=== PATIENT | female | born 1975 | race Caucasian/White ===

== ENCOUNTER 2017-07-24 23:25 | Emergency (ER) | payer OTHER ==
[~2017-07-24] VITALS: Ht 152.4 cm; Wt 71.9 kg
[~2017-07-24 23:25] MED LIST: NXM/40 PO; PSEU30TA20 PO
[2017-07-24 23:34] VITALS: TEMP 36.9; Ht 152.4 cm; Wt 71.9 kg
[2017-07-25] MEDS ORDERED: SODIUM CHLORIDE 0.9% 1000ML 1,000 ML IV STA (00:06)
[2017-07-25] MEDS ORDERED: ONDANSETRON INJ 2 MG/ML 2 ML VIAL IV STA (00:06)
[2017-07-25 00:36] LABS: BASO % 0.4 %; BASO ABS # 0.04 K/uL (0-0.2); COMPLETE YES; EOS % 3.7 %; HEMATOCRIT 41.6 % (37-47); IG% 0.3 %; LYMPH % 42.9 %; LYMPH ABS # 4.77 K/uL (1.2-3.4); MEAN CELL VOLUME 88.1 fL (80-100); MEAN CORPUSCULAR HEMOGLOBIN 31.6 pg (25-34); MEAN CORPUSCULAR HGB CONC 35.8 g/dl (32-36); MEAN PLATELET VOLUME 11.2 fL (7.4-10.4); MONO % 5.9 %; NEUT % 46.8 %; PLATELET COUNT 308 K/uL (130-400); RED BLOOD COUNT 4.72 M/uL (4.2-5.4); WHITE BLOOD COUNT 11.12 K/uL (4.8-10.8)
[2017-07-25 00:39] LABS: URINE APPEARANCE CLEAR (CLEAR); URINE BILIRUBIN NEG (NEG); URINE COLOR YELLOW; URINE NITRITE NEG (NEG); URINE PH 5.5 (4.5-7.5); UROBILINOGEN NEG (NEG); ZZUR CULT IF INDIC CLEAN CATCH NO
[2017-07-25 00:42] LABS: MANUAL MICROSCOPIC REQUIRED? NO; REVIEW REQ? NO
[2017-07-25 00:53] LABS: ALT/SGPT 20 U/L (12-78); AST/SGOT 10 U/L (15-37); BLOOD UREA NITROGEN 14 mg/dl (7-18); BUN/CREATININE RATIO 16.7 (10-20); CALCIUM 8.6 mg/dl (8.5-10.1); CARBON DIOXIDE 25 mmol/L (21-32); CHLORIDE 106 mmol/L (98-107); CREATININE 0.81 mg/dl (0.60-1.20); GLUCOSE 83 mg/dl (70-99); MAGNESIUM 2.4 mg/dl (1.8-2.4); POTASSIUM 3.7 mmol/L (3.5-5.1); SODIUM 138 mmol/L (136-145)
[2017-07-25 00:56] LABS: ALKALINE PHOSPHATASE 77 U/L (45-117)
[2017-07-25] MEDS ORDERED: CLR10 PO (01:57)
[2017-07-25] MEDS ORDERED: FAMO20TA9 PO (02:26)
--- NOTE | 2017-07-25 02:31 | EMERGENCY ROOM VISIT NOTE ---
History Report prepared by Jomar: Thai Aparicio Under the Supervision of: Dr. Charlene Mathew M.D. First contact with patient: 23:54 Chief Complaint: NAUSEA Stated Complaint: NAUSEA,LIGHTHEADED,SHAKES Nursing Triage Summary: nausea and light headed since yesterday. denies pain or vomiting History of Present Illness The patient is a 42 year old female who presents to the Emergency Room with complaints of persistent nausea beginning yesterday. She also complains of lightheadedness which began today. The patient denies any chest pain, abdominal pain, abnormal cough, SOB, vomiting, or diarrhea. She denies any chance of . She notes that she took a trip to the beach a few weeks ago. The patient denies any recent increased alcohol consumption. She has a history of a cholecystectomy. She notes that she smokes about a pack a day. Source of History: patient Onset: Yesterday Quality: other (nausea) Timing: other (persistent) Associated Symptoms: No cough, No chest pain, No SOB, No vomiting, No abdominal pain, No diarrhea Note: Additional symptoms: lightheadedness. Review of Systems See HPI for pertinent positives & negatives. A total of 10 systems reviewed and were otherwise negative. Past Medical & Surgical Medical Problems: (1) Frequent UTI Surgical Problems: (1) No history of previous surgery Family History No pertinent family history stated. Social History Smoking Status: Current Every Day Smoker Alcohol Use: none Marital Status: Housing Status: lives with family Occupation Status: employed Current/Historical Medications Scheduled Esomeprazole Magnesium (Nexium), 40 MG PO DAILY Loratadine (Claritin), 10 MG PO DAILY Scheduled PRN Famotidine (Pepcid), 20 MG PO BID PRN for gastritis Allergies Coded Allergies: Cephalosporins (Verified Allergy, Unknown, 07/24/17) Penicillins (Verified Allergy, Unknown, 07/24/17) Sulfa Antibiotics (Verified Allergy, Unknown, hives, 07/24/17) Physical Exam Vital Signs Date Time Temp Pulse Resp B/P (MAP) Pulse Ox O2 Delivery O2 Flow Rate FiO2 07/25/17 02:32 84 16 115/81 97 07/25/17 01:51 64 20 110/72 98 Room Air 07/25/17 00:31 74 20 121/96 98 Room Air 07/25/17 00:20 83 123/87 75 121/95 88 121/96 07/24/17 23:34 36.9 85 20 129/83 100 Room Air Physical Exam Vital signs reviewed. General: Well-appearing female, in no significant distress. HEENT: No scleral icterus, PERRLA, neck supple. Atraumatic. Cardiovascular: Regular rate and rhythm, no extra sounds. Pulmonary: Clear to auscultation bilaterally, normal work of breathing. Abdomen: Soft, nontender, nondistended, positive bowel sounds. Musculoskeletal: Atraumatic, no peripheral edema. Neurologic: Patient awake alert and oriented x 3, full strength in all 4 extremities. Cranial nerves 2 through 12 grossly intact. Skin: Warm, dry, no rash Medical Decision & Procedures ER Provider Diagnostic Interpretation: Two Chest X-ray interpreted by me: No focal lung consolidation. No failure. No pneumothorax. Laboratory Results 07/25/17 00:15 Red Blood Count 4.72, Mean Corpuscular Volume 88.1, Mean Corpuscular Hemoglobin 31.6, Mean Corpuscular Hemoglobin Concent 35.8, Mean Platelet Volume 11.2, Neutrophils (%) (Auto) 46.8, Lymphocytes (%) (Auto) 42.9, Monocytes (%) (Auto) 5.9, Eosinophils (%) (Auto) 3.7, Basophils (%) (Auto) 0.4, Neutrophils # (Auto) 5.21, Lymphocytes # (Auto) 4.77, Monocytes # (Auto) 0.66, Eosinophils # (Auto) 0.41, Basophils # (Auto) 0.04 07/25/17 00:15 Test 07/25/17 00:15 White Blood Count 11.12 K/uL (4.8-10.8) Red Blood Count 4.72 M/uL (4.2-5.4) Hemoglobin 14.9 g/dL (12.0-16.0) Hematocrit 41.6 % (37-47) Mean Corpuscular Volume 88.1 fL (80-100) Mean Corpuscular Hemoglobin 31.6 pg (25-34) Mean Corpuscular Hemoglobin Concent 35.8 g/dl (32-36) Platelet Count 308 K/uL (130-400) Mean Platelet Volume 11.2 fL (7.4-10.4) Neutrophils (%) (Auto) 46.8 % Lymphocytes (%) (Auto) 42.9 % Monocytes (%) (Auto) 5.9 % Eosinophils (%) (Auto) 3.7 % Basophils (%) (Auto) 0.4 % Neutrophils # (Auto) 5.21 K/uL (1.4-6.5) Lymphocytes # (Auto) 4.77 K/uL (1.2-3.4) Monocytes # (Auto) 0.66 K/uL (0.11-0.59) Eosinophils # (Auto) 0.41 K/uL (0-0.5) Basophils # (Auto) 0.04 K/uL (0-0.2) RDW Standard Deviation 41.6 fL (36.4-46.3) RDW Coefficient of Variation 12.9 % (11.5-14.5) Immature Granulocyte % (Auto) 0.3 % Immature Granulocyte # (Auto) 0.03 K/uL (0.00-0.02) Urine Color YELLOW Urine Appearance CLEAR (CLEAR) Urine pH 5.5 (4.5-7.5) Urine Specific Eagle 1.020 (1.000-1.030) Urine Protein NEG (NEG) Urine Glucose (UA) NEG (NEG) Urine Ketones NEG (NEG) Urine Occult Blood NEG (NEG) Urine Nitrite NEG (NEG) Urine Bilirubin NEG (NEG) Urine Urobilinogen NEG (NEG) Urine Leukocyte Esterase NEG (NEG) Urine Test NEG (NEG) Anion Gap 7.0 mmol/L (3-11) Est Creatinine Clear Calc Drug Dose 81.7 ml/min Estimated GFR () 105.3 Estimated GFR (Non- 90.8 BUN/Creatinine Ratio 16.7 (10-20) Calcium Level 8.6 mg/dl (8.5-10.1) Magnesium Level 2.4 mg/dl (1.8-2.4) Total Bilirubin 0.5 mg/dl (0.2-1) Direct Bilirubin < 0.1 mg/dl (0-0.2) Aspartate Amino Transf (AST/SGOT) 10 U/L (15-37) Alanine Aminotransferase (ALT/SGPT) 20 U/L (12-78) Alkaline Phosphatase 77 U/L (45-117) Total Protein 6.8 gm/dl (6.4-8.2) Albumin 3.5 gm/dl (3.4-5.0) Lipase 201 U/L (73-393) Laboratory results per my review. Medications Administered Medications (Trade) Dose Ordered Sig/Inder Route Start Time Stop Time Status Last Admin Dose Admin Sodium Chloride 1,000 ml @ 999 mls/hr Q1H1M STAT IV 07/25/17 00:06 07/25/17 01:06 DC 07/25/17 00:25 999 MLS/HR Ondansetron HCl (Zofran Inj) 4 mg NOW STAT IV 07/25/17 00:06 07/25/17 00:09 DC 07/25/17 00:31 4 MG ED Course 1204: Past medical records reviewed. The patient was evaluated in room C5. A complete history and physical examination was performed. 0006: Ordered Zofran Inj 4 mg IV, Sodium Chloride 1000 ml @ 999 mls/hr IV. 022: Upon reevaluation, the patient appeared to have improvement of her symptoms. I discussed findings with her. She verbalized agreement of the treatment plan. The patient was discharged home. Medical Decision Differential diagnosis: Etiologies such as benign positional vertigo, dehydration, hypovolemia, anemia, tumor, infection, hypoglycemia, electrolyte abnormalities, cardiac sources, intracerebral event, toxicologic, neurologic, as well as others were entertained. This patient was evaluated and appeared to be in no significant distress. IV access was obtained and laboratory work was drawn. 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 She was hydrated with normal saline solution. Chest x-ray was obtained due to the patient's smoking history and chronic cough. This reveals no focal infiltrate. Laboratory work reveals a negative UA, negative test. She was feeling improved after IV hydration and Zofran. The patient was advised to start Pepcid 20 mg twice daily as needed. She will follow-up with her physician this week for reevaluation return to the ER for worsening of symptoms or any medical concerns. Impression Primary Impression: Nausea Scribe Attestation The scribe's documentation has been prepared under my direction and personally reviewed by me in its entirety. I confirm that the note above accurately reflects all work, treatment, procedures, and medical decision making performed by me. Departure Information Dispostion Home / Self-Care Prescriptions Famotidine (PEPCID) 20 Mg Tab 20 MG PO BID Y for gastritis, #60 TAB Prov: Charlene Mathew M.D. 07/25/17 Referrals Brittany Mosquera M.D. (PCP) Forms HOME CARE DOCUMENTATION FORM, IMPORTANT VISIT INFORMATION Patient Instructions My [facility] Additional Instructions Diagnosis: Nausea Pepcid 20 mg twice daily as needed. You may continue your Nexium. Drink plenty of clear fluids. Minimize alcohol, coffee, soda. Maintain a bland diet. Follow-up with your physician this week for reevaluation. Return to the ER for worsening of symptoms or any medical concerns.
[2017-07-25 02:32] VITALS: BP 115/81; PULSE 84; O2SAT 97
--- NOTE | 2017-07-25 07:04 | DIAGNOSTIC IMAGING REPORT ---
CHEST 2 VIEWS ROUTINE CLINICAL HISTORY: 42 years-old Female presenting with cough, lightheaded. TECHNIQUE: PA and lateral views of the chest were obtained. COMPARISON: None. FINDINGS: Cardiomediastinal silhouette normal. Lungs and pleural spaces clear. Osseous structures normal. Cholecystectomy clips noted. IMPRESSION: 1. No acute cardiopulmonary disease. Electronically signed by: Slava Cortez M.D. 07/25/2017 7:03 AM Dictated Date/Time: 07/25/2017 7:02 AM
== END 2017-07-25 02:31 | disposition home or self-care (01) ==
LOC: C.EDB 23:26 → C.EDC 07-25 02:31
DX: R11.0 Nausea (principal); R42 Dizziness and giddiness; F17.200 Nicotine dependence, unspecified, uncomplicated; Z87.440 Personal history of urinary (tract) infections; Z88.0 Allergy status to penicillin; Z88.2 Allergy status to sulfonamides; Z88.8 Allergy status to other drugs, medicaments and biological substances

== ENCOUNTER 2018-02-04 23:53 | Emergency (ER) | payer OTHER ==
[~2018-02-04] VITALS: Ht 152.4 cm; Wt 74.7 kg
[~2018-02-04 23:53] MED LIST changes: +CLR10 PO; -PSEU30TA20 PO
[2018-02-04 23:57] VITALS: TEMP 36.5; Ht 152.4 cm; Wt 74.7 kg
[2018-02-05] MEDS ORDERED: ONDA4TAB10 SL (00:53)
[2018-02-05] MEDS ORDERED: CLIN300C2 PO (00:53)
[2018-02-05] MEDS ORDERED: OXYC1TAB3 PO (00:53)
--- NOTE | 2018-02-05 00:54 | EMERGENCY ROOM VISIT NOTE ---
History First contact with patient: 00:15 Chief Complaint: DENTAL PAIN Stated Complaint: ABCESS TOOTH,VOMITING Nursing Triage Summary: pt at [facility] morning for abcess tooth and palcedon antibiotic and 2 pain meds, pt now c/o pain worse and she is vomiting now History of Present Illness The patient is a 42 year old female who presents to the Emergency Room with complaints of dental pain. The patient states that she has had pain in 1 of her left upper teeth for the past 2 days. She has had issues with this tooth off and on for the past several weeks and was seen by a dentist last week for this. She has an appointment to have the tooth extracted. She rates the discomfort at 10/10 and states it is a sharp, throbbing pain. She was seen at the [place] emergency department this morning and was placed on clindamycin, tramadol and ibuprofen. She states that after taking these medications, she had an episode of vomiting. She states that nothing has helped the pain. It is worse with moving the mouth or eating. She denies facial swelling, fevers, difficulty breathing or difficulty swallowing. Review of Systems A complete 10 point review of systems was reviewed with the patient with pertinent positives and negatives as per history of present illness. All else were negative. Past Medical/Surgical History Medical Problems: (1) Asthma (2) Frequent UTI (3) URI, acute (4) Urinary tract infection Surgical Problems: (1) History of cholecystectomy (2) No history of previous surgery Social History Smoking Status: Current Every Day Smoker Alcohol Use: none Marital Status: Housing Status: lives with family Occupation Status: employed Current/Historical Medications Scheduled Clindamycin Hcl (Cleocin), 300 MG PO QID Esomeprazole Magnesium (Nexium), 40 MG PO DAILY Ondasetron Odt (Zofran Odt), 4 MG SL Q6H Scheduled PRN Oxycodone Ir (Roxicodone Ir), 1-2 TAB PO Q4H PRN for Pain Physical Exam Vital Signs Date Time Temp Pulse Resp B/P (MAP) Pulse Ox O2 Delivery O2 Flow Rate FiO2 02/05/18 01:00 108 16 136/63 95 02/04/18 23:57 36.5 81 18 151/107 99 Room Air Physical Exam VITALS: Vitals are noted on the nurse's note and reviewed by myself. Vital signs stable. GENERAL: This is a 42-year-old female, in no acute distress, nondiaphoretic, well-developed well-nourished. SKIN: The skin was without rashes. EARS: External auditory canals clear, tympanic membranes pearly silverio without erythema or effusion bilaterally. EYES: Pupils equal round and reactive to light and accommodation. MOUTH: Mucous membranes moist. There is an impacted, broken off left upper tooth. The surrounding gums are erythematous, mildly edematous and friable. There is no facial swelling. There is no drainage or sign of an obvious abscess. NECK: Supple without nuchal rigidity. No lymphadenopathy. HEART: Regular rate and rhythm without murmurs gallops or rubs. LUNGS: Clear to auscultation bilaterally without wheezes, rales or rhonchi. NEURO: Patient was alert and oriented to person place and time. Medical Decision & Procedures Medications Administered Medications (Trade) Dose Ordered Sig/Inder Route Start Time Stop Time Status Last Admin Dose Admin Oxycodone HCl (Roxicodone Immediate Rel 5MG Home Pack) 1 homepack UD ONCE PO 02/05/18 01:00 02/05/18 01:01 DC 02/05/18 00:54 1 HOMEPACK Ondansetron HCl (ZOFRAN ODT 4MG Home Pack) 1 homepack UD ONCE PO 02/05/18 01:00 02/05/18 01:01 DC 02/05/18 00:54 1 HOMEPACK Medical Decision Differential diagnosis includes dental infection, dental abscess, Malcolm's angina, among others. The patient was evaluated as above. She presents complaining of dental pain. She was at [place] and was prescribed antibiotics as well as pain medication. She has had an episode of vomiting since then. The patient was given a home pack and prescription for oxycodone as well as Zofran. She is taking clindamycin, however this was prescribed 150 mg 4 times daily. I recommended taking 300 mg 4 times daily and gave her a prescription for this. She has an appointment set up with her dentist for extraction. There is no facial swelling or fever today. She was advised to return here for any signs of worsening infection. She verbalized understanding of my assessment and treatment plan and was discharged home in good condition. [place] Drug Monitoring Program Search Results: patient reviewed within database, no issues identified Medication Reconcilliation Current Medication List: was personally reviewed by me Blood Pressure Screening Patient's blood pressure: Elevated blood pressure Blood pressure disposition: Elevated BP felt to be situational Impression Primary Impression: Dental infection Departure Information Dispostion Home / Self-Care Condition GOOD Prescriptions Clindamycin Hcl (CLEOCIN) 300 Mg Cap 300 MG PO QID for 10 Days, #40 CAP Prov: Reshma Webber PA-C 02/05/18 Ondasetron Odt (ZOFRAN ODT) 4 Mg Tab 4 MG SL Q6H for Nausea, #15 TAB Prov: Reshma Webber PA-C 02/05/18 Oxycodone Ir (Roxicodone Ir) 5 Mg Tab 1-2 TAB PO Q4H Y for Pain, #15 TAB For Initial Treatment Prov: Reshma Webber PA-C 02/05/18 Referrals No Doctor, Assigned (PCP) Patient Instructions My [facility] Additional Instructions You have been treated in the Emergency Department for Dental Pain. You have been prescribed Oxy IR to be used for pain control. This is a narcotic medication. You cannot drive or consume alcohol while on this medicine. This medicine should only be used for pain that cannot be controlled with over-the- counter pain medicines. You have been prescribed Zofran to be used for any nausea or vomiting. Take as prescribed. You were prescribed Clindamycin to be taken four times daily as prescribed. This is an antibiotic. All antibiotics have the potential to cause diarrhea. Stop this medication and contact a medical provider if you were to develop any significant adverse side effects including: wheezing, shortness of breath, passing out, vomiting, or a diffuse rash. Always take antibiotics as directed and COMPLETE the ENTIRE course regardless of the improvement of your symptoms. For pain control, you can use the following [id number] medicines (if >12 yo): - Regular strength (325mg/tab) Tylenol (acetaminophen) 2 tabs every 4-6 hours as needed. Do not exceed 12 tablets in a 24 hour period. Avoid taking more than 4 grams (4000 mg) of Tylenol per day. This includes any other sources of acetaminophen you may take on a regular basis. - Regular strength (200 mg/tab) Advil (ibuprofen) 1-2 tabs every 4-6 hours as needed. Do not exceed a dose of 3200 mg per day. Refrain from smoking cigarettes or using chewing tobacco until you have been evaluated by your dentist. Keeping beverages lukewarm and consuming soft foods can decrease your pain. Warm compresses over the affected area may offer some relief. You MUST seek evaluation of your dental pain by a dentist following your visit to the Emergency Department. The Emergency Department is not capable of treating dental issues long-term. You should call your dentist as soon as possible to make an appointment for evaluation of your dental pain. Return to the emergency department if you develop the following symptoms despite treatment course outlined above: fever, intractable pain, increased redness, swelling, or purulent discharge.
[2018-02-05 01:00] VITALS: BP 136/63; PULSE 108; O2SAT 95
[2018-02-05] MEDS ORDERED: OXYCODONE IR HOME PACK PO ONE (01:00)
[2018-02-05] MEDS ORDERED: ONDANSETRON HOME PACK 4MG OD TAB PO ONE (01:00)
[2018-02-05] MEDS ORDERED: ONDA4TAB46 PO (07:36)
== END 2018-02-05 01:00 | disposition home or self-care (01) ==
LOC: C.EDB 23:54
DX: K04.7 Periapical abscess without sinus (principal); J45.909 Unspecified asthma, uncomplicated; F17.200 Nicotine dependence, unspecified, uncomplicated

== ENCOUNTER 2018-02-05 05:58 | Emergency (ER) | payer OTHER ==
[~2018-02-05] VITALS: Ht 152.4 cm; Wt 74.3 kg
[~2018-02-05 05:58] MED LIST changes: +CLIN300C2 PO; +ONDA4TAB10 SL; +OXYC1TAB3 PO
[2018-02-05 06:02] VITALS: Ht 152.4 cm; Wt 74.3 kg
[2018-02-05] MEDS ORDERED: TRAMADOL HCL 50 MG TAB PO STA (06:53)
[2018-02-05] MEDS ORDERED: GI COCKTAIL PO STA (06:53)
[2018-02-05] MEDS ORDERED: LIDOCAINE/EPINEPHRINE 1% 20 ML VIAL INFIL ONE (07:00)
[2018-02-05] MEDS ORDERED: FAMOTIDINE 20 MG TAB PO ONE (07:00)
[2018-02-05] MEDS ORDERED: ALUMINUM/MAGNESIUM SUSP 30 ML UDC ONE (07:01)
[2018-02-05] MEDS ORDERED: LIDOCAINE HCL 2% VISC SOLN 20 ML UDC ONE (07:02)
--- NOTE | 2018-02-05 07:23 | EMERGENCY ROOM VISIT NOTE ---
History Report prepared by Jomar: Thai Aparicio Under the Supervision of: Dr. Jonnie Mckeon M.D. First contact with patient: 06:44 Chief Complaint: DENTAL PAIN Stated Complaint: ABCESS,SWELLING Nursing Triage Summary: C/o dental pain left upper tooth. Appointment with dentist on 02/15 for extraction. Pt seen here last night, sent home with new prescription for antibiotics/oxycodone/zofran. Pt states antibiotics didn't help. Pt took two of the pain meds and two of the nausea pills tonight with no relief. History of Present Illness The patient is a 42 year old white female with a past medical history of asthma , UTI, hernia repair, s/p cholecystectomy who presents to the ED with a cc of constant left upper dental beginning two days ago. Positive dizziness and nausea. Describes pain as "sharp". Patient denies modifying factors. Patient was seen in the ED last night for similar symptoms and was discharged on antibiotics, oxycodone and Zofran. She has taken two doses of her oxycodone. Patient is scheduled to have her tooth pulled by her dentist in 10 days. LNMP was one month ago. Patient is a smoker. No recent travel. Source of History: patient Onset: Two days ago Position: teeth (left upper) Quality: sharp Timing: constant Modifying Factors (Worsening): other (none) Modifying Factors (Relieving): other (none) Associated Symptoms: + nausea Note: Additional symptoms: dizziness. Review of Systems See HPI for pertinent positives and negatives. A total of ten systems were reviewed and were otherwise negative. Past Medical & Surgical Medical Problems: (1) Asthma (2) Frequent UTI (3) URI, acute (4) Urinary tract infection Surgical Problems: (1) History of cholecystectomy (2) No history of previous surgery Family History No pertinent family history stated. Social History Smoking Status: Current Every Day Smoker Alcohol Use: none Marital Status: Housing Status: lives with family Occupation Status: employed Current/Historical Medications Scheduled Clindamycin Hcl (Cleocin), 300 MG PO QID Esomeprazole Magnesium (Nexium), 40 MG PO DAILY Ondasetron Odt (Zofran Odt), 4 MG SL Q6H Scheduled PRN Ondansetron Hcl (Zofran), 4 MG PO Q8H PRN for Nausea Oxycodone Ir (Roxicodone Ir), 1-2 TAB PO Q4H PRN for Pain Allergies Coded Allergies: Cephalosporins (Verified Allergy, Unknown, 02/05/18) Penicillins (Verified Allergy, Unknown, 02/05/18) Sulfa Antibiotics (Verified Allergy, Unknown, hives, 02/05/18) Physical Exam Vital Signs Date Time Temp Pulse Resp B/P (MAP) Pulse Ox O2 Delivery O2 Flow Rate FiO2 02/05/18 06:02 37.1 125 20 162/108 97 Room Air Physical Exam GENERAL: Awake, alert, well-appearing, NAD HENT: Normocephalic, atraumatic. Broken 11th tooth. No signs of odontogenic swelling. False lower teeth. False mandibular teeth. EYES: Normal conjunctiva. Sclera non-icteric. NECK: Supple. No nuchal rigidity. FROM. RESPIRATORY: CTAB, no rhonchi, wheezing, crackles CARDIAC: RRR, no MRG ABDOMEN: Soft, NTND, BS+ MSK: No chest wall TTP, no LE edema NEURO: GCS 15, CN 2-12 intact, moves all 4s on command SKIN: No rash or jaundice noted. Medical Decision & Procedures Laboratory Results Test 02/05/18 06:55 Urine Test NEG (NEG) Laboratory results reviewed by me Medications Administered Medications (Trade) Dose Ordered Sig/Inder Route Start Time Stop Time Status Last Admin Dose Admin Tramadol HCl (Ultram Tab) 50 mg NOW STAT PO 02/05/18 06:53 02/05/18 06:56 DC 02/05/18 07:13 50 MG Famotidine (Pepcid Tab) 20 mg NOW ONCE PO 02/05/18 07:00 02/05/18 07:01 DC 02/05/18 07:13 20 MG Al Hydroxide/Mg Hydroxide (Maalox Susp) 30 ml STK-MED ONCE .ROUTE 02/05/18 07:01 02/05/18 07:02 DC 02/05/18 07:12 30 ML Lidocaine HCl (Viscous Lidocaine 2% Soln) 20 ml STK-MED ONCE .ROUTE 02/05/18 07:02 02/05/18 07:03 DC 02/05/18 07:12 20 ML Procedure Inferior Alveolar Block Indication: dental pain Verbal consent obtained. Risks and benefits were explained with the usual customary discussion. A time out was taken. Using sterile technique, 5 mL's of Lidocaine with Epinephrine was injected into the area where the inferior alveolar nerve projects from the face using a 22 gauge needle. No complications. The patient tolerated the procedure well. ED Course 0647: The patient was evaluated in room B2. A complete history and physical exam was performed. 0710: I conducted the inferior alveolar block. See the procedure note for details. 0735: I reevaluated the patient. Discussed results and discharge instructions: she verbalized understanding and agreement. The patient is ready for discharge. Medical Decision The patient is a 42 year old white female with a past medical history of asthma , UTI, hernia repair, s/p cholecystectomy who presents to the ED with a cc of constant left upper dental beginning two days ago. Triage Nursing notes reviewed. The patient's presentation and history were concerning for dental caries, , UTI, gastritis, medication side effect, and dental abscess. Prior records were reviewed. The patient was seen and evaluated last evening for similar problems. Patient did have dental pain. Patient did receive pending pain medication, antiemetics. Patient was seen and evaluated at the bedside. Patient was complaining of some left maxillary jaw pain. The patient did have a broken left upper #11 tooth. The patient was complaining of an abscess. There was no signs of swelling or concern for odontogenic infection that could be relieved with an incision and drainage procedure. The patient did complain of some mild nausea. The patient was recently started on the antibiotics and had taken some narcotic pain medication. Patient denies any chest pain, shortness of breath, abdominal pain. The patient did have an inferior alveolar block was performed. Adequate analgesia was achieved. Patient was told that she needs to take Motrin and Tylenol around the clock. Patient was also told she may try some Orajel or ice. Patient does have a follow-up dental appointment. Patient did have urine test that was negative. Patient was deemed suitable for outpatient follow-up and treatment at this time. Patient was given strict follow-up, discharge, and return precautions. All questions were answered. Patient was deemed suitable for outpatient follow-up at this time. Patient agreed with the plan of care and was safely discharged home. Medication Reconcilliation Current Medication List: was personally reviewed by me Blood Pressure Screening Patient's blood pressure: Elevated blood pressure Blood pressure disposition: Referred to PCP Impression Primary Impression: Dental caries Additional Impression: Pain, dental Scribe Attestation The scribe's documentation has been prepared under my direction and personally reviewed by me in its entirety. I confirm that the note above accurately reflects all work, treatment, procedures, and medical decision making performed by me. Departure Information Dispostion Home / Self-Care Prescriptions Ondansetron Hcl (ZOFRAN) 4 Mg Tab 4 MG PO Q8H Y for Nausea, #12 TAB Prov: Jonnie Mckeon M.D. 02/05/18 Referrals No Doctor, Assigned (PCP) Patient Instructions ED [facility], [facility] Additional Instructions Please return to the emergency department if you have worsening or recurrent symptoms not amenable to at-home treatment. Please call for a follow-up appointment with her primary care physician. Please take your medications as prescribed. If you have other concerns and/or complaints please feel free to also call your primary care physician's office or return the ED for further evaluation, management, and treatment. You received narcotic or benzodiazepene medication while in the emergency room today. This is an addictive medication that may cause drowziness as well as constipation. Do not drive, operate heavy machinery, or drink alcohol under the influence of this medication. You may take 600 mg Ibuprofen every 6 hours as needed for pain with food for no more than 2 consecutive days. You may take tylenol 1000 mg every 6 hours as needed for pain. You may take motrin and tylenol separately or at the same time. Take your medications as prescribed. If taking an antibiotic consider taking a probiotic and/or eating yogurt, but at the least, please take with food as it can cause upset stomach. You have been examined and treated today on an emergency basis only. This is not a substitute for, or an effort to provide, complete comprehensive medical care. It is impossible to recognize and treat all injuries or illnesses in a single emergency department visit. It is therefore important that you follow up closely with [facility], your PCP, and/or your specialist(s). Call as soon as possible for an appointment. Thank you for your time and consideration. I look forward to speaking with you again soon. Please don't hesitate to call us if you have any questions. Problem Qualifiers
[2018-02-05] MEDS ORDERED: ONDA4TAB46 PO (07:36)
[2018-02-05 07:45] VITALS: BP 144/79; PULSE 87; TEMP 36.9; O2SAT 98
== END 2018-02-05 07:44 | disposition home or self-care (01) ==
LOC: C.EDB 05:58
DX: K02.9 Dental caries, unspecified (principal); K08.89 Other specified disorders of teeth and supporting structures; S02.5XXA Fracture of tooth (traumatic), initial encounter for closed fracture; X58.XXXA Exposure to other specified factors, initial encounter; F17.200 Nicotine dependence, unspecified, uncomplicated; J45.909 Unspecified asthma, uncomplicated; Z87.19 Personal history of other diseases of the digestive system; Z88.1 Allergy status to other antibiotic agents; Z88.0 Allergy status to penicillin; Z88.2 Allergy status to sulfonamides

== ENCOUNTER 2018-02-05 21:43 | Inpatient (IN) | payer OTHER ==
[~2018-02-05] VITALS: Ht 152.4 cm; Wt 75.1 kg
[~2018-02-05 21:43] MED LIST changes: +ONDA4TAB46 PO
[2018-02-05] MEDS ORDERED: MoRPHine SULFATE 10 MG/ML CARP/VIAL IV STA (21:56)
[2018-02-05] MEDS ORDERED: KETOROLAC TROMETHAMINE 15 MG/ML VIAL IV STA (21:56)
[2018-02-05] MEDS ORDERED: ONDANSETRON INJ 2 MG/ML 2 ML VIAL IV STA (21:56)
[2018-02-05] MEDS ORDERED: CLINDAMYCIN IV 600 MG in DEXTROSE 5% 50ML 50 ML IV ONE (22:00)
[2018-02-05] MEDS ORDERED: OPTIRAY 320 IV PRN (22:15)
[2018-02-05 22:33] LABS: BASO % 0.1 %; BASO ABS # 0.02 K/uL (0-0.2); EOS % 0.1 %; EOS ABS # 0.02 K/uL (0-0.5); HEMATOCRIT 41.7 % (37-47); HEMOGLOBIN 14.8 g/dL (12.0-16.0); IG# 0.06 K/uL (0.00-0.02); LYMPH % 6.4 %; LYMPH ABS # 1.04 K/uL (1.2-3.4); MEAN CELL VOLUME 87.6 fL (80-100); MEAN CORPUSCULAR HEMOGLOBIN 31.1 pg (25-34); MEAN CORPUSCULAR HGB CONC 35.5 g/dl (32-36); MONO % 4.8 %; MONO ABS # 0.77 K/uL (0.11-0.59); NEUT % 88.2 %; PLATELET COUNT 297 K/uL (130-400); RED CELL DISTRIBUTION WIDTH CV 13.4 % (11.5-14.5); RED CELL DISTRIBUTION WIDTH SD 43.4 fL (36.4-46.3); WHITE BLOOD COUNT 16.21 K/uL (4.8-10.8)
[2018-02-05 22:49] LABS: CALCIUM 8.4 mg/dl (8.5-10.1); CREATININE 0.86 mg/dl (0.60-1.20); POTASSIUM 3.1 mmol/L (3.5-5.1)
[2018-02-05] MEDS ORDERED: SODIUM CHLORIDE 0.9% 1000ML 1,000 ML IV STA (23:26)
[2018-02-05] MEDS ORDERED: BENZOCAIN/TETRACA/BUTAM SPRAY 200 APPLN/20 GM SPRY ONE (23:37)
[2018-02-05] MEDS ORDERED: CANNULA ONE (23:37)
[2018-02-06] MEDS ORDERED: OXYCODONE HCL IR 5 MG TAB (IMMEDIATE RELEASE) PO PRN (00:30)
[2018-02-06] MEDS ORDERED: POLYETHYLENE (MIRALAX) 17 GM PACK PO PRN ×2 (00:30→01:45)
[2018-02-06] MEDS ORDERED: ACETAMINOPHEN 325 MG TAB PO PRN (00:30)
[2018-02-06] MEDS ORDERED: ONDANSETRON INJ 2 MG/ML 2 ML VIAL IV PRN (00:30)
--- NOTE | 2018-02-06 00:50 | EMERGENCY ROOM VISIT NOTE ---
History First contact with patient: 21:50 Chief Complaint: FACIAL PAIN/INJURY Stated Complaint: ABCESS, SWELLING, NAUSEA, FRANKEL History of Present Illness The patient is a 42 year old female who presents to the Emergency Room with complaints of worsening dental infection. The patient has been here twice in the past 2 days. She states that 3-4 hours prior to arrival, she noticed increasing swelling in the left side of the face. She reports pain across the front of her head as well as pain in the area of the tooth. The pain is throbbing and she rates the discomfort in 8/10. She has been taking clindamycin for approximately 48 hours. She took 3 doses of this today. She reports associated nausea, but has not vomited. She has been taking Zofran for the symptoms. She is taking oxycodone and ibuprofen for the pain. She has not taken her temperature. She was seen by a dentist for this tooth last week and was scheduled for an extraction 02/15/2018. She is not a diabetic and denies any medical problems. She denies difficulty breathing or swallowing. Review of Systems A complete 10 point review of systems was reviewed with the patient with pertinent positives and negatives as per history of present illness. All else were negative. Past Medical/Surgical History Medical Problems: (1) Asthma (2) Dental abscess (3) Facial cellulitis (4) Frequent UTI (5) URI, acute (6) Urinary tract infection Surgical Problems: (1) History of cholecystectomy (2) No history of previous surgery Social History Smoking Status: Current Every Day Smoker Alcohol Use: none Marital Status: Housing Status: lives with family Occupation Status: employed Current/Historical Medications Scheduled Clindamycin Hcl (Cleocin), 300 MG PO QID Esomeprazole Magnesium (Nexium), 40 MG PO DAILY Ondasetron Odt (Zofran Odt), 4 MG SL Q6H Scheduled PRN Ondansetron Hcl (Zofran), 4 MG PO Q8H PRN for Nausea Oxycodone Ir (Roxicodone Ir), 1-2 TAB PO Q4H PRN for Pain Physical Exam Vital Signs Date Time Temp Pulse Resp B/P (MAP) Pulse Ox O2 Delivery O2 Flow Rate FiO2 02/05/18 23:34 37.2 118 18 105/72 97 Room Air 02/05/18 22:59 118 20 106/69 96 Room Air 02/05/18 21:45 37.8 126 16 125/67 99 Room Air Physical Exam VITALS: Vitals are noted on the nurse's note and reviewed by myself. Vital signs stable. GENERAL: This is a 42-year-old female, in no acute distress, nondiaphoretic, well-developed well-nourished. SKIN: There is some mild erythema and warmth to the left maxillary region. EARS: External auditory canals clear, tympanic membranes pearly silverio without erythema or effusion bilaterally. EYES: Pupils equal round and reactive to light and accommodation. MOUTH: Poor dentition, multiple dental caries. There is swelling of the left upper gums as well as a fluctuant mass lateral to tooth 11. No active drainage. NECK: Supple without nuchal rigidity. No lymphadenopathy. HEART: Regular rate and rhythm without murmurs gallops or rubs. LUNGS: Clear to auscultation bilaterally without wheezes, rales or rhonchi. NEURO: Patient was alert and oriented to person place and time. Medical Decision & Procedures ER Provider Diagnostic Interpretation: CT FACIAL: Dental disease with periapical abscess involving the first left maxillary bicuspid. Small abscess overlying the left maxilla in this region, measuring approximately 0.3 x 1.0 x 1.5 cm. Overlying fat stranding over the left maxilla and left mandible, concerning for cellulitis/soft tissue edema. Soft tissue density along the medial left maxilla may represent phlegmon. Mild mucosal thickening in the left maxillary sinus. Radiologist: Krissy Leon M.D. Laboratory Results 02/05/18 21:10 Red Blood Count 4.76, Mean Corpuscular Volume 87.6, Mean Corpuscular Hemoglobin 31.1, Mean Corpuscular Hemoglobin Concent 35.5, Mean Platelet Volume 11.0, Neutrophils (%) (Auto) 88.2, Lymphocytes (%) (Auto) 6.4, Monocytes (%) (Auto) 4.8, Eosinophils (%) (Auto) 0.1, Basophils (%) (Auto) 0.1, Neutrophils # (Auto) 14.30, Lymphocytes # (Auto) 1.04, Monocytes # (Auto) 0.77, Eosinophils # (Auto) 0.02, Basophils # (Auto) 0.02 02/05/18 21:10 Test 3/12/18 21:10 White Blood Count 16.21 K/uL (4.8-10.8) Red Blood Count 4.76 M/uL (4.2-5.4) Hemoglobin 14.8 g/dL (12.0-16.0) Hematocrit 41.7 % (37-47) Mean Corpuscular Volume 87.6 fL (80-100) Mean Corpuscular Hemoglobin 31.1 pg (25-34) Mean Corpuscular Hemoglobin Concent 35.5 g/dl (32-36) Platelet Count 297 K/uL (130-400) Mean Platelet Volume 11.0 fL (7.4-10.4) Neutrophils (%) (Auto) 88.2 % Lymphocytes (%) (Auto) 6.4 % Monocytes (%) (Auto) 4.8 % Eosinophils (%) (Auto) 0.1 % Basophils (%) (Auto) 0.1 % Neutrophils # (Auto) 14.30 K/uL (1.4-6.5) Lymphocytes # (Auto) 1.04 K/uL (1.2-3.4) Monocytes # (Auto) 0.77 K/uL (0.11-0.59) Eosinophils # (Auto) 0.02 K/uL (0-0.5) Basophils # (Auto) 0.02 K/uL (0-0.2) RDW Standard Deviation 43.4 fL (36.4-46.3) RDW Coefficient of Variation 13.4 % (11.5-14.5) Immature Granulocyte % (Auto) 0.4 % Immature Granulocyte # (Auto) 0.06 K/uL (0.00-0.02) Anion Gap 7.0 mmol/L (3-11) Est Creatinine Clear Calc Drug Dose 78.7 ml/min Estimated GFR () 97.9 Estimated GFR (Non- 84.5 BUN/Creatinine Ratio 6.0 (10-20) Lactic Acid Level 1.8 mmol/L (0.4-2.0) Calcium Level 8.4 mg/dl (8.5-10.1) Medications Administered Medications (Trade) Dose Ordered Sig/Inder Route Start Time Stop Time Status Last Admin Dose Admin Clindamycin Phosphate 600 mg/ Dextrose 54 ml @ 100 mls/hr ONE ONCE IV 02/05/18 22:00 02/05/18 22:32 DC 02/05/18 22:50 100 MLS/HR Morphine Sulfate (MoRPHine SULFATE INJ) 6 mg NOW STAT IV 02/05/18 21:56 02/05/18 21:59 DC 02/05/18 22:39 6 MG Ketorolac Tromethamine (Toradol Inj) 15 mg NOW STAT IV 02/05/18 21:56 02/05/18 21:59 DC 02/05/18 22:39 15 MG Ondansetron HCl (Zofran Inj) 4 mg NOW STAT IV 02/05/18 21:56 02/05/18 21:59 DC 02/05/18 22:38 4 MG Sodium Chloride 1,000 ml @ 999 mls/hr Q1H1M STAT IV 02/05/18 23:26 02/06/18 00:26 DC 02/05/18 23:26 999 MLS/HR Procedure I examined the patient. Verbal consent was obtained to perform the procedure. Cetacaine was applied to the area of fluctuance until local anesthesia was achieved. The area of fluctuance was incised with an 11 blade and pus was immediately expelled. The mouth was rinsed with saline. The patient tolerated the procedure well. No complications were met. ED Course The patient was evaluated as above. Labs were drawn and IV access was obtained. Patient was medicated with 1 L normal saline, morphine, Zofran and clindamycin. CT of the face was performed and read by radiology as above. Patient was reevaluated and findings were discussed. She will be admitted due to SIRS criteria, failed outpatient therapy. Incision and drainage was performed at this time. A second liter of normal saline solution was ordered. Case was discussed with the [facility] resident, Dr. Cain. They agreed to evaluate the patient for admission. Medical Decision Differential diagnosis includes abscess, cellulitis, phlegmon, Malcolm's angina, sepsis, among others. The patient is a 42-year-old female who presents today complaining of worsening dental pain as well as facial swelling. She is febrile and tachycardic. She has facial swelling as well as a fluctuant abscess within the mouth. Labs revealed a leukocytosis of 16,000 with left shift. Lactic acid was not elevated. Blood cultures were drawn and are pending. Patient is hypokalemic. She was given IV fluids, pain medicine, antiemetics and a dose of clindamycin. I did perform incision and drainage of the small abscess as noted in the procedure section. Patient was persistently tachycardic despite fever control and IV fluids. She will require admission for IV antibiotics due to SIRS criteria and worsening symptoms despite antibiotics. The patient will be evaluated by the [facility] hospitalist team for evaluation and admission. Medication Reconcilliation Current Medication List: was personally reviewed by me Blood Pressure Screening Patient's blood pressure: Normal blood pressure Impression Primary Impression: Facial cellulitis Additional Impressions: SIRS (systemic inflammatory response syndrome) Dental abscess Departure Information Referrals No Doctor, Assigned (PCP) Patient Instructions My [facility] Health Problem Qualifiers
[2018-02-06] MEDS ORDERED: IV FLUIDS COMPLETED PRN (01:00)
--- NOTE | 2018-02-06 01:00 | History and Physical ---
History & Physical Date & Time of Service: Feb 06, 2018 at 01:00 Chief Complaint: Abcess, Swelling, Nausea, [place] Primary Care Physician: No Doctor, Assigned History of Present Illness Source: patient 42-year-old female is into the ER with complaints of left-sided facial swelling and toothache which started about 2 days ago. She was seen in the ER on 2 occasions in the last 2 days and was found to have a broken tooth in her left upper jaw and was prescribed clindamycin and scheduled for dental extraction by her dentist. She presented today with worsening swelling and pain on the left side of her face. She rated the pain as 8/10 and throbbing in nature. She denied any fevers but complains of chills. She is currently on clindamycin 300 mg 4 times daily which she had been using for the last 2 days. She denies any chest pain, shortness of breath but complains of palpitations and tachycardia. Denies any difficulty swallowing, closing her mouth or difficulty breathing. Denies any blurry vision or diplopia. Social History Smoking Status: Current Every Day Smoker Marital Status: Occupational Status: employed Allergies Coded Allergies: Cephalosporins (Verified Allergy, Unknown, 02/05/18) Penicillins (Verified Allergy, Unknown, 02/05/18) Sulfa Antibiotics (Verified Allergy, Unknown, hives, 02/05/18) Home Medications Scheduled Clindamycin Hcl (Cleocin), 300 MG PO QID Esomeprazole Magnesium (Nexium), 40 MG PO DAILY Ondasetron Odt (Zofran Odt), 4 MG SL Q6H Scheduled PRN Ondansetron Hcl (Zofran), 4 MG PO Q8H PRN for Nausea Oxycodone Ir (Roxicodone Ir), 1-2 TAB PO Q4H PRN for Pain Review of Systems Constitutional: + chills, No fever Eyes: + problem reported (left sided facial swelling ), No worsening of vision ENT: No hearing loss Respiratory: No cough, No sputum Cardiovascular: No chest pain Abdomen: No pain, No nausea, No vomiting Musculoskeletal: No joint pain Genitourinary - Female: No dysuria, No urinary frequency Neurologic: No memory loss, No paralysis Psychiatric: No depression symptoms Endocrine: No fatigue Physical Exam Vital Signs Date Time Temp Pulse Resp B/P (MAP) Pulse Ox O2 Delivery O2 Flow Rate FiO2 02/06/18 00:54 103 18 112/68 92 Room Air 02/05/18 23:34 37.2 118 18 105/72 97 Room Air 02/05/18 22:59 118 20 106/69 96 Room Air 02/05/18 21:45 37.8 126 16 125/67 99 Room Air General Appearance: WD/WN, no apparent distress Head: normocephalic Eyes: normal inspection ENT: + pertinent finding ( left-sided facial swelling with increased warmth and tenderness. left upper tooth #11 broken ) Neck: supple Respiratory/Chest: chest non-tender, lungs clear, normal breath sounds, no respiratory distress Cardiovascular: regular rate, rhythm Abdomen/GI: normal bowel sounds, non tender, soft Extremities/Musculoskelatal: no pedal edema Neurologic/Psych: alert, normal mood/affect, oriented x 3 Diagnostics Laboratory Results Results Past 24 Hours Test 02/05/18 21:10 Range/Units White Blood Count 16.21 4.8-10.8 K/uL Red Blood Count 4.76 4.2-5.4 M/uL Hemoglobin 14.8 12.0-16.0 g/dL Hematocrit 41.7 37-47 % Mean Corpuscular Volume 87.6 80-100 fL Mean Corpuscular Hemoglobin 31.1 25-34 pg Mean Corpuscular Hemoglobin Concent 35.5 32-36 g/dl Platelet Count 297 130-400 K/uL Mean Platelet Volume 11.0 7.4-10.4 fL Neutrophils (%) (Auto) 88.2 % Lymphocytes (%) (Auto) 6.4 % Monocytes (%) (Auto) 4.8 % Eosinophils (%) (Auto) 0.1 % Basophils (%) (Auto) 0.1 % Neutrophils # (Auto) 14.30 1.4-6.5 K/uL Lymphocytes # (Auto) 1.04 1.2-3.4 K/uL Monocytes # (Auto) 0.77 0.11-0.59 K/uL Eosinophils # (Auto) 0.02 0-0.5 K/uL Basophils # (Auto) 0.02 0-0.2 K/uL RDW Standard Deviation 43.4 36.4-46.3 fL RDW Coefficient of Variation 13.4 11.5-14.5 % Immature Granulocyte % (Auto) 0.4 % Immature Granulocyte # (Auto) 0.06 0.00-0.02 K/uL Sodium Level 134 136-145 mmol/L Potassium Level 3.1 3.5-5.1 mmol/L Chloride Level 100 98-107 mmol/L Carbon Dioxide Level 26 21-32 mmol/L Anion Gap 7.0 3-11 mmol/L Blood Urea Nitrogen 5 7-18 mg/dl Creatinine 0.86 0.60-1.20 mg/dl Est Creatinine Clear Calc Drug Dose 78.7 ml/min Estimated GFR () 97.9 Estimated GFR (Non- 84.5 BUN/Creatinine Ratio 6.0 10-20 Random Glucose 129 70-99 mg/dl Lactic Acid Level 1.8 0.4-2.0 mmol/L Calcium Level 8.4 8.5-10.1 mg/dl Microbiology Results 02/05/18 Blood Culture, Received Pending 02/05/18 Blood Culture, Received Pending Diagnostic Radiology Face CT: Dental disease with periapical abscess involving the first left maxillary bicuspid. Small abscess overlying the left maxilla in this region, measuring approximately 0.3 x 1.0 x 1.5 cm. Overlying fat stranding over the left maxilla and left mandible, concerning for cellulitis/soft tissue edema. Soft tissue density along the medial left maxilla may represent phlegmon. Mild mucosal thickening in the left maxillary sinus. Radiologist: Krissy Leon M.D. Impression Assessment and Plan 42-year-old female is into the ER with complaints of left-sided facial swelling and toothache which started about 2 days ago. She was seen in the ER on 2 occasions in the last 2 days and was found to have a broken tooth in her left upper jaw and was prescribed clindamycin and scheduled for dental extraction by her dentist. Meets SIRS criteria with elevated white count, tachycardia, elevated temperature Facial cellulitis secondary to dental abscess: -Face CT suggestive of periapical abscess involving the first left maxillary bicuspid. Small abscess overlying the left maxilla in this region, measuring approximately 0.3 x 1.0 x 1.5 cm. Overlying fat stranding over the left maxilla and left mandible, concerning for cellulitis/soft tissue edema -Abscess was drained in the ER - Blood cultures currently pending -Pain control as needed with and ibuprofen as needed and oxycodone for breakthrough pain -Started on clindamycin 600 mg every 8 hours and linezolid considering she failed outpatient clindamycin. (Patient is allergic to penicillins and cephalosporins) Hypokalemia : -K at 3.1, repleted DVT prophylaxis: SCDs Full code Admitted to [facility] Resident Physician Supervision Note: I was present with Dr. Gonzalez during the history and exam. I discussed the case with the resident and agree with the findings and plan as documented in the note. Any exceptions or clarifications are listed here: 42 y/o F with no significant medical history. Pt developed cellulitis with a small abscess due to a dental infection. She had been taking a low dose of Clindamycin x 2 days to no avail. She presents with worseinng pain, swelling an fever. A small abscess was apparent on CT which was partially drained in the ER. OE AAO x 3 S1,2 R CTAB NT, ND Swellling and tenderness close to angle of jaw P: Pt placed on Clinda and Linezolid pending culture results Provided with IVF and analgesics She has an appt for tooth extraction the following Tue Documented By: Sánchez Alegria Resuscitation Status full VTE Prophylaxis Will order VTE Prophylaxis: Yes Resident Tracking Resident Involvement: Resident Care Provided Care Provided: Adult Hospital Medicine
[2018-02-06 01:30] VITALS: BP 106/70; PULSE 108; TEMP 36.8; O2SAT 95; Ht 152.4 cm; Wt 75.1 kg
[2018-02-06] MEDS: LINEZOLID / D5W 600 MG in PREMIXED IN D5W 300 ML IV SCH ×2 (02:08→13:39)
[2018-02-06] MEDS ORDERED: POTASSIUM CHLORIDE 20 MEQ TABCR PO ONE (02:30)
[2018-02-06 05:48] LABS: HEMATOCRIT 37.6 % (37-47); HEMOGLOBIN 13.1 g/dL (12.0-16.0); MEAN CELL VOLUME 87.9 fL (80-100); MEAN CORPUSCULAR HEMOGLOBIN 30.6 pg (25-34); MEAN CORPUSCULAR HGB CONC 34.8 g/dl (32-36); MEAN PLATELET VOLUME 10.9 fL (7.4-10.4); PLATELET COUNT 258 K/uL (130-400); RED CELL DISTRIBUTION WIDTH CV 13.6 % (11.5-14.5); RED CELL DISTRIBUTION WIDTH SD 43.8 fL (36.4-46.3); WHITE BLOOD COUNT 10.64 K/uL (4.8-10.8)
[2018-02-06] MEDS: CLINDAMYCIN IV 600 MG in DEXTROSE 5% 50ML 50 ML IV SCH ×3 (06:23→21:33)
[2018-02-06 06:24] LABS: CALCIUM 8.1 mg/dl (8.5-10.1); CREATININE 0.71 mg/dl (0.60-1.20); POTASSIUM 3.2 mmol/L (3.5-5.1)
[2018-02-06] MEDS: IBUPROFEN 600 MG TAB PO SCH ×4 (06:44→20:42)
--- NOTE | 2018-02-06 06:53 | DIAGNOSTIC IMAGING REPORT ---
FACIAL-MAXILLOFACIAL WITH CLINICAL HISTORY: left upper dental pain, swelling, worsening sxs on abx pain. Edema. TECHNIQUE: Transaxial acquisition with multi axial medic images COMPARISON STUDY: None FINDINGS: Findings consistent with a generalized cellulitis left central perimandibular and para maxillary distribution. No evidence for drainable abscess or collection. Small 8 mm focal phlegmon adjacent to the posterior left maxilla. Small left maxillary periapical abscess. Several dental caries involving the posterior left molars involving the left maxilla. IMPRESSION: Findings consistent with generalized left central maxillary and perimandibular cellulitis. 2. Small left periapical abscess left maxilla. 3. Small 8 mm phlegmon adjacent to the posterior left maxilla. 4. Generalized deterioration of dentation with several caries involving the left central axilla The above report was generated using voice recognition software. It may contain grammatical, syntax or spelling errors. Electronically signed by: Simone Morales M.D. 02/06/2018 6:52 AM Dictated Date/Time: 02/06/2018 6:47 AM
[2018-02-06 08:00] VITALS: BP 115/77; PULSE 92; TEMP 36.9; O2SAT 95
[2018-02-06] MEDS ORDERED: NON-FORMULARY MEDICATION (Esomeprazole Magnesium (Nexium) 40 MG) PO SCH (09:00)
[2018-02-06] MEDS: POTASSIUM CHLORIDE 20 MEQ TABCR PO SCH ×2 (09:09→20:43)
[2018-02-06] MEDS: PANTOprazole SOD 40 MG TAB PO SCH (09:09)
--- NOTE | 2018-02-06 12:48 | Progress Note ---
Progress Note Date of Service Feb 06, 2018. Progress Note S: Patient feels well, denies acute overnight events. Ongoing pain, improved with analgesia. No significant change in swelling O: Gen: lying in bed, no acute distress HEENT: swelling and erythema over left maxillary sinus, tender to palpation. No significant induration appreciated, No significant posterior oropharyngeal erythema. Poor dentition. No obvious abscess appreciated Cardio: S1+S2, no murmurs Lungs: CTAB, good air movement, no crackles or wheezes Abdo: Soft, non tender, non distended, BS+ LE: calves supple, no swelling A: 42-year-old female seen in ED with complaints of left-sided facial swelling and toothache, worsened over the last 2 days despite compliance with PO clindamycin. Meets SIRS criteria with elevated white count, tachycardia, elevated temperature P: Dental abscess s/p drainage in ED, with overlying facial cellulitis: - Face CT suggestive of periapical abscess involving the first left maxillary bicuspid. Small abscess overlying the left maxilla in this region, measuring approximately 0.3 x 1.0 x 1.5 cm. Overlying fat stranding over the left maxilla and left mandible, concerning for cellulitis/soft tissue edema - Abx: IV clindamycin and linezolid (Patient is allergic to penicillins and cephalosporins) - Trace blood cultures - Pain control with oxycodone and ibuprofen Hypokalemia - etiology unclear - K at 3.2, supplement and trend BMP DVT prophylaxis: - SCDs Full code Resident Tracking Resident Involvement: Resident Care Provided Care Provided: Adult Hospital Medicine
[2018-02-06 15:07] VITALS: BP 104/69; PULSE 89; TEMP 36.9; O2SAT 95
[2018-02-06 23:27] VITALS: BP 106/72; PULSE 88; TEMP 36.8; O2SAT 95
[2018-02-07 00:15] VITALS: O2SAT 95
[2018-02-07] MEDS: LINEZOLID / D5W 600 MG in PREMIXED IN D5W 300 ML IV SCH ×2 (02:25→14:11)
[2018-02-07] MEDS: CLINDAMYCIN IV 600 MG in DEXTROSE 5% 50ML 50 ML IV SCH ×2 (06:25→13:19)
[2018-02-07 07:11] VITALS: BP 130/88; PULSE 97; TEMP 36.6; O2SAT 93
[2018-02-07 07:27] LABS: HEMATOCRIT 42.1 % (37-47); HEMOGLOBIN 14.5 g/dL (12.0-16.0); MEAN CELL VOLUME 88.8 fL (80-100); MEAN CORPUSCULAR HEMOGLOBIN 30.6 pg (25-34); MEAN CORPUSCULAR HGB CONC 34.4 g/dl (32-36); MEAN PLATELET VOLUME 11.7 fL (7.4-10.4); NUCLEATED RED BLOOD CELL ABS 0.02 K/uL (0-0); PLATELET COUNT 259 K/uL (130-400); RED CELL DISTRIBUTION WIDTH CV 13.7 % (11.5-14.5); WHITE BLOOD COUNT 9.41 K/uL (4.8-10.8)
[2018-02-07 07:30] VITALS: O2SAT 93
[2018-02-07 08:05] LABS: CALCIUM 8.5 mg/dl (8.5-10.1); CREATININE 0.64 mg/dl (0.60-1.20); POTASSIUM 4.2 mmol/L (3.5-5.1)
[2018-02-07] MEDS: PANTOprazole SOD 40 MG TAB PO SCH (08:24)
[2018-02-07] MEDS: IBUPROFEN 600 MG TAB PO SCH ×2 (08:24→13:19)
[2018-02-07] MEDS: POTASSIUM CHLORIDE 20 MEQ TABCR PO SCH (08:24)
[2018-02-07] MEDS: LACTOBACILLUS ACIDOPHILUS (FLORANEX) TAB PO SCH ×2 (08:28→11:49)
--- NOTE | 2018-02-07 15:01 | Discharge Instructions ---
Discharge Instructions Date of Service Feb 07, 2018. Admission Reason for Admission: Dental Abscess, Facial Cellulitis Discharge Discharge Diagnosis / Problem: Dental abscess Discharge Goals Goal(s): Improve disease control, Diagnostic testing, Therapeutic intervention Activity Recommendations Activity Limitations: resume your previous activity You were seen in the hospital for a dental abscess not improving with medication. Imaging confirmed the diagnosis. Despite spontaneous discharge, the abscess has persisted. You would benefit from dental evaluation and management. On discharge, continue the antibiotics and pain medication as previous. Ibuprofen and a cold or warm compress may also be helpful for pain relief. Keep your dental appointment for tomorrow. Your dentist may make changes to the medication regimen after assessing/ managing the collection Thank you for allowing us to participate in your care. Current Hospital Diet Patient's current hospital diet: Regular Diet Discharge Diet Recommended Diet: Regular Diet Pending Studies Studies pending at discharge: no Medical Emergencies . Who to Call and When: Medical Emergencies: If at any time you feel your situation is an emergency, please call 911 immediately. . Non-Emergent Contact Non-Emergency issues call your: Primary Care Provider, Specialist (Dentist) . . "Provider Documentation" section prepared by Teresa Melo. . Resident Tracking Resident Involvement: Resident Care Provided Care Provided: Adult Hospital Medicine
--- NOTE | 2018-02-07 15:03 | Discharge Summary ---
Discharge Summary Date of Service Feb 07, 2018. Discharge Summary Admission Date: Feb 06, 2018 at 00:55 Discharge Date: Feb 07, 2018 Discharge Disposition: Home Principal Diagnosis: Dental abscess Problems/Secondary Diagnoses: Hypokalemia Procedures: FACIAL-MAXILLOFACIAL WITH CLINICAL HISTORY: left upper dental pain, swelling, worsening sxs on abx pain. Edema. TECHNIQUE: Transaxial acquisition with multi axial medic images COMPARISON STUDY: None FINDINGS: Findings consistent with a generalized cellulitis left central perimandibular and para maxillary distribution. No evidence for drainable abscess or collection. Small 8 mm focal phlegmon adjacent to the posterior left maxilla. Small left maxillary periapical abscess. Several dental caries involving the posterior left molars involving the left maxilla. IMPRESSION: Findings consistent with generalized left central maxillary and perimandibular cellulitis. 2. Small left periapical abscess left maxilla. 3. Small 8 mm phlegmon adjacent to the posterior left maxilla. 4. Generalized deterioration of dentation with several caries involving the left central axilla Consultations: none Medication Reconciliation Continued Medications: Clindamycin Hcl (Cleocin) 300 Mg Cap 300 MG PO QID for 10 Days, #40 CAP Esomeprazole Magnesium (Nexium) 40 Mg Capcr 40 MG PO DAILY, CAP Ondansetron Hcl (Zofran) 4 Mg Tab 4 MG PO Q8H PRN for Nausea, #12 TAB Ondasetron Odt (Zofran Odt) 4 Mg Tab 4 MG SL Q6H for Nausea, #15 TAB Oxycodone Ir (Roxicodone Ir) 5 Mg Tab 1-2 TAB PO Q4H PRN for Pain, #15 TAB For Initial Treatment Discharge Exam Patient well, denies acute overnight events. States she has ongoing pain over left maxilla and swelling persists due to persistent abscess despite spontaneous discharge after lunch today. She understands that she needs dental evaluation and was able to schedule a dentist appointment for tomorrow morning. She understands management plan and is keen for home. Review of Systems: Constitutional: No fever, No chills, No sweats Respiratory: No cough, No sputum, No shortness of breath, No dyspnea on exertion Cardiovascular: No chest pain Abdomen: No pain, No nausea, No diarrhea Genitourinary - Female: No dysuria, No urinary frequency, No urinary urgency Physical Exam: General Appearance: no apparent distress ENT: + pertinent finding (left sided facial swelling (improved)) Respiratory/Chest: lungs clear, normal breath sounds, no respiratory distress, no accessory muscle use Cardiovascular: regular rate, rhythm, no edema, no murmur Abdomen / GI: normal bowel sounds, non tender, soft Extremities: no calf tenderness, no pedal edema Neurologic/Psychiatric: no motor/sensory deficits, alert, normal mood/affect Hospital Course This is a 42 y/o F who presented to the ED with complains of left sided facial swelling and toothache. She had 2 ER visits preceding this admission and was found to have a broken tooth in her left upper jaw. She was initially given clindamycin and was scheduled to follow up with her dentist for a tooth extraction. However, the pain and swelling worsened which prompted this admission. Facial CT was suggestive of periapical abscess as well as cellulitis. She had leucocytosis of 16, tachycardia and fever on presentation. She was started on IV clindamycin and Linezolid. Moderate improvement was noted in pain and swelling was noted. She was advised prompt follow up with her dentist for re-evaluation of the abscess. She was given Clindamycin 600 mg PO QID at discharge. All other chronic and acute conditions were managed as appropriate. Total Time Spent: Greater than 30 minutes This includes examination of the patient, discharge planning, medication reconciliation, and communication with other providers. Discharge Instructions Please refer to the electronic Patient Visit Report (Discharge Instructions) for additional information. Follow-Up Dentist PCP Resident Tracking Resident Involvement: Resident Care Provided Care Provided: Adult [facility] Medicine Reviewed: Pt Seen/Exam by Me History left facial swelling better. had some more pus drained when having meal Constitutional: denies: fever Respiratory: negative: short of breath General Appearance: no apparent distress Ears, Nose, Throat: other (left face swelling with redness +) Respiratory: no respiratory distress Cardiovascular: regular rate, rhythm Neurologic/Psychiatric: alert, oriented x 3 Skin Characteristics: warm/dry Assessment/Plan Resident Physician Supervision Note: I independently interviewed and examined the patient and verified the hamlin history and physical, reviewed labs and image studies, discussed the case with the resident Dr. Melo and agree with the findings and care plan. Time spent in discharge 35 min
[2018-02-07 15:11] VITALS: BP 108/71; PULSE 75; TEMP 36.9; O2SAT 97
[2018-02-07 15:20] VITALS: BP 108/71; PULSE 75; TEMP 36.9; O2SAT 97
--- NOTE | 2018-02-08 10:20 | EDITING REQUIRED CODING QUERY ---
SEPSIS To promote full compliance with coding requirements relating to patient care, physician participation is requested in all cases of compressor operator portable uncertainty. Please assist us with the question(s) below: In responding to this query, please exercise your independent professional judgement. The fact that a question is asked does not imply that any particular answer is desired or expected. We appreciate your clarification on this issue. Throughout the medical record, you have clearly documented a localized infection and your patient has clinical evidence of a generalized sepsis or severe sepsis. The term urosepsis is a nonspecific entity and is coded as an UTI. If the patient has sepsis, severe sepsis, from an urinary source or some other source, please clarify in your response below. The medical record reflects the following clinical findings: 02/05/18 Body temperature of 37.8 C 02/05/18 Pulse 126/minute 02/05/18 WBC count 16.21 ()Bacteremia (Nonspecific laboratory finding of bacteria in the blood) Specify Organism () Present on Admission () Not present on admission () Unable to clinically determine () Septicemia (Systemic disease associated with the presence of pathogenic microorganisms in the blood): Specify Organism () Present on Admission () Not present on admission () Unable to clinically determine (x) Sepsis Specify Organism - none Specify Associated Condition/Diagnosis - dental abscess (x) Present on Admission () Not present on admission () Unable to clinically determine () Severe Sepsis (Sepsis associated with acute organ dysfunction) Specify Organism Specify Associated Condition/Diagnosis () Present on Admission () Not present on admission () Unable to clinically determine () Septic Shock (Severe sepsis with acute circulatory failure, unexplained by other causes) () Present on Admission () Not present on admission () Unable to clinically determine () Other, patient has:
== END 2018-02-07 16:14 | disposition home or self-care (01) | DRG 872 ==
LOC: C.EDB 21:44 → C.MS2W 02-06 00:55 → ENRESERV 02-06 00:57 → EDBEDREQ 02-06 01:07
PROVIDERS: ADMIT Family Medicine; ATTEND Family Medicine
DX: A41.9 Sepsis, unspecified organism (principal); L03.211 Cellulitis of face; K04.7 Periapical abscess without sinus; E87.6 Hypokalemia; F17.200 Nicotine dependence, unspecified, uncomplicated; Z88.0 Allergy status to penicillin; Z88.1 Allergy status to other antibiotic agents; Z88.2 Allergy status to sulfonamides

== ENCOUNTER 2018-07-16 23:45 | Emergency (ER) | payer OTHER, BC ==
[~2018-07-16] VITALS: Ht 152.4 cm; Wt 71.0 kg
[~2018-07-16 23:45] MED LIST changes: -CLIN300C2 PO; -CLR10 PO; +OXYC-90 PO; -OXYC1TAB3 PO
[2018-07-16 23:51] VITALS: TEMP 37.3; Ht 152.4 cm; Wt 71.0 kg
[2018-07-16] MEDS ORDERED: KETOROLAC TROMETHAMINE 30 MG/ML VIAL IV STA (23:58)
--- NOTE | 2018-07-17 00:06 | EMERGENCY ROOM VISIT NOTE ---
History Report prepared by Jomar: Oscar Ponce Under the Supervision of: Dr. Hui Cody D.O. First contact with patient: 23:51 Chief Complaint: CARDIAC ASSESSMENT Stated Complaint: CHEST TIGHTNESS,HEADACHE Nursing Triage Summary: reports chest pain beginning this AM and increaseing through the day. see triage note History of Present Illness The patient is a 43 year old female who presents to the Emergency Room with complaints of chest pain that began this morning. The patient describes the pain as a "squeezing" sensation that was "on-and-off" throughout this morning. This afternoon the pain gradually became more constant, and it is still present at this time. She also complains of a stiff neck and headache as well as nausea. The patient denies any difficulty breathing. She adds that she did have similar symptoms a couple of years ago and went to the [place] ED. Her cardiac work-up was normal at this time. The patient denies any personal or family history of cardiac disease. She is a smoker and has GERD. She denies that this feels like GERD. Source of History: patient Onset: This morning Position: chest Quality: other ("squeezing" ) Timing: constant, intermittent Associated Symptoms: + headache, + neck pain, + nausea, No SOB Review of Systems See HPI for pertinent positives & negatives. A total of 10 systems reviewed and were otherwise negative. Past Medical & Surgical Medical Problems: (1) Asthma (2) Dental abscess (3) Facial cellulitis (4) Frequent UTI (5) URI, acute (6) Urinary tract infection Surgical Problems: (1) History of cholecystectomy (2) No history of previous surgery Family History No cardiac family history. Social History Smoking Status: Current Every Day Smoker Alcohol Use: none Marital Status: Housing Status: lives with family Occupation Status: employed Current/Historical Medications Scheduled Esomeprazole Magnesium (Nexium), 40 MG PO DAILY Scheduled PRN Aspirin (Eh Aspirin Extra Stren), 1-2 TABS PO UD PRN for Pain or Fever Allergies Coded Allergies: Cephalosporins (Verified Allergy, Unknown, 07/17/18) Penicillins (Verified Allergy, Unknown, 07/17/18) Sulfa Antibiotics (Verified Allergy, Unknown, hives, 07/17/18) Physical Exam Vital Signs Date Time Temp Pulse Resp B/P (MAP) Pulse Ox O2 Delivery O2 Flow Rate FiO2 07/17/18 01:39 75 18 119/82 98 07/17/18 00:44 77 18 114/75 99 Room Air 07/16/18 23:57 101 07/16/18 23:54 96 Room Air 07/16/18 23:51 37.3 97 18 148/93 100 Room Air Physical Exam HEENT: Head - normocephalic and atraumatic Pupils are equal, round, and reactive to light. Extraocular eye muscles are intact, and sclera are anicteric. Nose - moist nasal mucosa without discharge. Mouth - moist buccal mucosa. Oropharynx is nonerythematous and there is no tonsillar exudate or edema noted. Neck: Supple; no JVD, nuchal rigidity, cervical lymphadenopathy. Heart: Regular rate and rhythm. There is a normal S1 and S2 with no murmurs, clicks, or gallops appreciated. Lungs: Clear to auscultation bilaterally with no wheezes, rales, or rhonchi. Abdomen: Soft, completely nontender, nondistended, with good bowel sounds. There are no palpable pulsatile masses or hepatosplenomegaly. There is no guarding, rigidity, or rebound noted. Extremities: No evidence of cyanosis, clubbing, or edema. There are easily palpable peripheral pulses. Skin: warm and dry with good turgor and no rashes. Medical Decision & Procedures ER Provider Diagnostic Interpretation: Radiology results as stated below per my review: CHEST X-RAY: No cardiomegaly, no pulmonary infiltrate or consolidation. Laboratory Results 07/16/18 23:55 Red Blood Count 4.75, Mean Corpuscular Volume 88.2, Mean Corpuscular Hemoglobin 30.3, Mean Corpuscular Hemoglobin Concent 34.4, Mean Platelet Volume 11.5, Neutrophils (%) (Auto) 46.5, Lymphocytes (%) (Auto) 44.2, Monocytes (%) (Auto) 5.1, Eosinophils (%) (Auto) 3.6, Basophils (%) (Auto) 0.4, Neutrophils # (Auto) 6.20, Lymphocytes # (Auto) 5.90, Monocytes # (Auto) 0.68, Eosinophils # (Auto) 0.48, Basophils # (Auto) 0.05 07/16/18 23:55 Test 07/16/18 23:55 White Blood Count 13.34 K/uL (4.8-10.8) Red Blood Count 4.75 M/uL (4.2-5.4) Hemoglobin 14.4 g/dL (12.0-16.0) Hematocrit 41.9 % (37-47) Mean Corpuscular Volume 88.2 fL (80-100) Mean Corpuscular Hemoglobin 30.3 pg (25-34) Mean Corpuscular Hemoglobin Concent 34.4 g/dl (32-36) Platelet Count 321 K/uL (130-400) Mean Platelet Volume 11.5 fL (7.4-10.4) Neutrophils (%) (Auto) 46.5 % Lymphocytes (%) (Auto) 44.2 % Monocytes (%) (Auto) 5.1 % Eosinophils (%) (Auto) 3.6 % Basophils (%) (Auto) 0.4 % Neutrophils # (Auto) 6.20 K/uL (1.4-6.5) Lymphocytes # (Auto) 5.90 K/uL (1.2-3.4) Monocytes # (Auto) 0.68 K/uL (0.11-0.59) Eosinophils # (Auto) 0.48 K/uL (0-0.5) Basophils # (Auto) 0.05 K/uL (0-0.2) RDW Standard Deviation 44.0 fL (36.4-46.3) RDW Coefficient of Variation 13.5 % (11.5-14.5) Immature Granulocyte % (Auto) 0.2 % Immature Granulocyte # (Auto) 0.03 K/uL (0.00-0.02) Anion Gap 10.0 mmol/L (3-11) Est Creatinine Clear Calc Drug Dose 67.1 ml/min Estimated GFR () 84.1 Estimated GFR (Non- 72.5 BUN/Creatinine Ratio 7.9 (10-20) Calcium Level 8.7 mg/dl (8.5-10.1) Total Bilirubin 0.4 mg/dl (0.2-1) Aspartate Amino Transf (AST/SGOT) 12 U/L (15-37) Alanine Aminotransferase (ALT/SGPT) 21 U/L (12-78) Alkaline Phosphatase 78 U/L (45-117) Troponin I < 0.015 ng/ml (0-0.045) Total Protein 7.2 gm/dl (6.4-8.2) Albumin 3.6 gm/dl (3.4-5.0) Globulin 3.6 gm/dl (2.5-4.0) Albumin/Globulin Ratio 1.0 (0.9-2) Laboratory results per my review. Medications Administered Medications (Trade) Dose Ordered Sig/Inder Route Start Time Stop Time Status Last Admin Dose Admin Ketorolac Tromethamine (Toradol Inj) 30 mg NOW STAT IV 07/16/18 23:58 07/17/18 00:01 DC 07/17/18 00:10 30 MG Procedure Medications Ordered: Toradol ECG Per My Interpretation Indication: chest pain Rate (beats per minute): 95 Rhythm: normal sinus Findings: no acute ischemic change, no ectopy, other (NO STS changes) ED Course 2353: Past medical records reviewed. The patient was evaluated in room A10. A complete history and physical exam was performed. An IV lock was initiated and labs were drawn as above. A 12-lead EKG was obtained as described above. 2358: Ordered Toradol 30 mg IV. She had a portable chest x-ray performed. 0108: Upon reevaluation, the patient had moderate relief of her pain with Toradol. I discussed findings and results with her. She verbalized agreement of the treatment plan. The patient was discharged home. Medical Decision The patient is a 43 year old female who presents to the Emergency Department for constant left sided chest "squeezing." Differential diagnosis includes GERD, costochondritis, pleurisy, cardiac ischemia, PE, and aortic dissection. Laboratory results were reviewed and show; negative troponin, WBC 13.3, normal renal function and glucose, and normal LFTs This is a 43-year-old female patient presents to the emergency department with a 12 hour history of left-sided chest pain. She describes it as a squeezing. The pain was relieved with IV Toradol. She had a normal EKG and negative cardiac enzymes. I have encouraged the patient to follow-up with her PCP if the symptoms persist. Medication Reconcilliation Current Medication List: was personally reviewed by me Blood Pressure Screening Patient's blood pressure: Elevated blood pressure Blood pressure disposition: Elevated BP felt to be situational Impression Primary Impression: Left sided chest pain Scribe Attestation The scribe's documentation has been prepared under my direction and personally reviewed by me in its entirety. I confirm that the note above accurately reflects all work, treatment, procedures, and medical decision making performed by me. Departure Information Dispostion Home / Self-Care Referrals No Doctor, Assigned (PCP) Forms IMPORTANT VISIT INFORMATION Patient Instructions My [facility] Additional Instructions Rest. Avoid strenuous activity until follow up. Use ibuprofen for pain
[2018-07-17 00:11] LABS: HEMATOCRIT 41.9 % (37-47); HEMOGLOBIN 14.4 g/dL (12.0-16.0); MEAN CELL VOLUME 88.2 fL (80-100); MEAN CORPUSCULAR HEMOGLOBIN 30.3 pg (25-34); MEAN CORPUSCULAR HGB CONC 34.4 g/dl (32-36); MEAN PLATELET VOLUME 11.5 fL (7.4-10.4); PLATELET COUNT 321 K/uL (130-400); RED CELL DISTRIBUTION WIDTH CV 13.5 % (11.5-14.5); WHITE BLOOD COUNT 13.34 K/uL (4.8-10.8)
[2018-07-17] MEDS ORDERED: [UNRECOGNIZED DRUG - CODE] PO (00:36)
[2018-07-17 00:39] LABS: ALBUMIN 3.6 gm/dl (3.4-5.0); ALKALINE PHOSPHATASE 78 U/L (45-117); ALT/SGPT 21 U/L (12-78); AST/SGOT 12 U/L (15-37); BLOOD UREA NITROGEN 8 mg/dl (7-18); CALCIUM 8.7 mg/dl (8.5-10.1); CARBON DIOXIDE 22 mmol/L (21-32); CREATININE 0.97 mg/dl (0.60-1.20); GLUCOSE 89 mg/dl (70-99); POTASSIUM 3.5 mmol/L (3.5-5.1); SODIUM 140 mmol/L (136-145); TOTAL PROTEIN 7.2 gm/dl (6.4-8.2)
[2018-07-17 00:56] LABS: BASO % 0.4 %; BASO ABS # 0.05 K/uL (0-0.2); EOS % 3.6 %; EOS ABS # 0.48 K/uL (0-0.5); IG# 0.03 K/uL (0.00-0.02); LYMPH % 44.2 %; MONO % 5.1 %; MONO ABS # 0.68 K/uL (0.11-0.59); NEUT % 46.5 %
[2018-07-17 01:39] VITALS: BP 119/82; PULSE 75; O2SAT 98
--- NOTE | 2018-07-17 06:49 | DIAGNOSTIC IMAGING REPORT ---
CHEST ONE VIEW PORTABLE CLINICAL HISTORY: Left-sided chest pain COMPARISON STUDY: July 25, 2017 FINDINGS: The cardiac and mediastinal contours are normal. There is no evidence of focal pulmonary consolidation. There is no evidence of failure. No pleural effusions are visualized.[ IMPRESSION: No active disease in the chest. Electronically signed by: Farhan Knowles M.D. 07/17/2018 6:48 AM Dictated Date/Time: 07/17/2018 6:47 AM
== END 2018-07-17 01:39 | disposition home or self-care (01) ==
LOC: C.EDB 23:46 → C.EDA 07-17 01:39
DX: R07.9 Chest pain, unspecified (principal); J45.909 Unspecified asthma, uncomplicated; F17.200 Nicotine dependence, unspecified, uncomplicated; Z88.0 Allergy status to penicillin; Z88.1 Allergy status to other antibiotic agents; Z88.2 Allergy status to sulfonamides

== ENCOUNTER 2025-01-13 03:02 | Observation (INO) ==
--- OUTSIDE RECORDS SUMMARY | 2025-01-13 03:08 | External Medical Summary | Summary of Care ---
Author Name Unknown Organization [facility] Address [address] [place] [address] Phone [phone] Care Team Providers Care Director Executive Communications Name Role Phone Abran Kaley Dowlinge MINDI Primary Care Provider Encounter Details Date Type Department Care Team (Late st Contact Info) Description 12/09/2024 Orders Only Outcomes Research Department [address] [place] [address] Yuliya Bryant CHRA [employer] [facility] Other*[id number] Allergies Active Allergy Reactions Criticality Noted Date Comments Penicillins 06/28/2002 rash Sulfa Antibiotics 04/02/2003 Hives documented as of this encounter (statuses as of 12/09/2024) Medications Esomeprazole Magnesium 20 MG Oral Packet Take 20 mg by mouth daily before breakfast. Active Excedrin Extra Strength 250-250-65 MG Oral Tablet (Aspirin-Acetamino phen-Caffeine) Take 1 Tablet by mouth every 6 hours as needed. Active Fluticasone-Salmet anjali 250-50 MCG/ACT Inhalation Aerosol Powder Breath Activated (Advair Diskus)Indications :Wheeze Inhale by mouth 1 Puff in the morning AND 1 Puff before bedtime. 60 Each 5 09/23/20 22 Active Acetaminophen 325 MG Oral Tablet (Tylenol) Take 2 Tablets by mouth every 6 hours as needed for Pain, Mild. Alternating with Ibuprofen. 60 Tablet 04/12/20 23 Active Escitalopram Oxalate 20 MG Oral Tablet (Lexapro)Indicatio ns:Adjustment disorder with anxious mood TAKE ONE TABLET BY MOUTH EVERY DAY 90 Tablet 1 06/14/20 24 Active Topiramate 50 MG Oral Tablet (topAMAX)Indicatio ns:Tension headache TAKE ONE TABLET BY MOUTH EVERY DAY 30 Tablet 5 06/14/20 24 Active busPIRone HCl 15 MG Oral Tablet (Buspar)Indication s:Adjustment disorder with anxious mood TAKE 1 TABLET BY MOUTH TWICE DAILY FOR ANXIETY 60 Tablet 5 06/14/20 24 Active Cyclobenzaprine HCl 10 MG Oral Tablet (Flexeril)Indicati ons:Tension headache TAKE ONE TABLET BY MOUTH TWICE DAILY NEEDED for headache or muscle spasms 20 Tablet 07/16/20 24 Active Ibuprofen 600 MG Oral Tablet (Motrin)Indication s:Fibroids, intramural TAKE ONE TABLET BY MOUTH EVERY EIGHT HOURS WITH FOOD. take during periods for 3 days 27 Tablet 09/21/20 24 Active Ondansetron HCl 4 MG Oral Tablet (Zofran)Indication s:Nausea TAKE ONE TABLET BY MOUTH EVERY TWELVE HOURS NEEDED for nausea 30 Tablet 10/10/20 24 Active Albuterol Sulfate HFA 108 (90 Base) MCG/ACT Inhalation Aerosol SolutionIndication s:Mild intermittent asthma with exacerbation INHALE TWO PUFFS BY MOUTH FOUR TIMES DAILY 8.5 g 1 11/06/20 24 Active Levothyroxine Sodium 25 MCG Oral Tablet (Levoxyl)Indicatio ns:Acquired hypothyroidism Take 1 Tablet by mouth daily first thing in the morning. (at least 30 min prior to breakfast or other meds) 90 Tablet 11/11/20 24 Active Sucralfate 1 GM Oral Tablet (Carafate)Indicati ons:Peptic ulcer Take 1 Tablet by mouth 4 times a day before meals and at bedtime. half an hour before meals and at bedtime 120 Tablet 5 11/18/20 24 Active Rosuvastatin Calcium 10 MG Oral Tablet (Crestor)Indicatio ns:Hyperlipidemia, unspecified hyperlipidemia type Take 1 Tablet by mouth in the morning. 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 Nephrolithiasis 08/07/2020 Uterine fibroid 07/27/2018 Adjustment disorder with anxious mood 07/27/2018 Dysmenorrhea 07/27/2018 GERD (gastroesophageal reflux disease) 4 Overweight (BMI 25.0-29.9) 09/19/2003 COMMON MIGRAINE WITHOUT MENTION OF INTRACTABLE M IGRAINE 05/21/2003 Tension headache 05/21/2003 Migraine aura, persistent Irritable bowel syndrome documented as of this encounter (statuses as of 12/09/2024) Resolved Problems Problem Noted Date Diagnosed Date Resolved Date 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 Irritable bowel syndrome 06/28/2002 Encounter for supervision of other normal 05/27/2002 Overview (03/29/2016): ICD-10 update of inactive term documented as of this encounter (statuses as of 12/09/2024) Immunizations Name Administration Dates Next Due COVID-19 mRNA, LNP-s, No Pre serve, 2-Dose Series ([employer]) 06/15/2021,05/25/2021 COVID-19, LNP-s, No Preserve , Shoaib-sucrose, Ages 12+ (Pfizer) 03/22/2022 Pneumococcal Conjugate Vaccine, 20-valent (Prevn ar20) 09/23/2022 Pneumococcal Polysaccharide PPV23 (Pneumovax) TDAP (age 10 and older)(Boostrix) 07/27/2018 documented as of this encounter Social History Tobacco Use Types Packs/Day Years Used Date Smoking Tobacco: Every Day Cigarettes 0.8 25 Smokeless Tobacco: Never Alcohol Use Standard Drinks/Week Comments No 0 (1 standard drink = 0.6 oz pur e alcohol) PHQ-2 Answer Date Recorded PHQ Adult Total Score 9 05/19/2021 Comments No Sex and Gender Information Value Date Recorded Sex Assigned at Not on file Legal Sex Female 5:27 AM EST Gender Identity Not on file Sexual Orientation Not on file Occupation Industry Job Start Date Job End Date [employer] Not on file Not on file Not on file documented as of this encounter Plan of Treatment Upcoming Encounters Date Type Department Care Team (Late st Contact Info) Description 12/16/2024 12:00 PM EST Laboratory Laboratory [address] [place] [phone] [address] [place] [address] 12/31/2024 7:30 AM EST Office Visit Gastroenterology, [facility] [address] [place] [address] Jeanne Goldsmith CRNP [address] [place] [address] 03/05/2025 2:40 PM EDT Office Visit Family Medicine [address] [place] [phone] Taylor Gonzalez MD [address] [place] [address] [place] [id number] Scheduled Orders Name Type Priority Associated Diagnoses Orde r Schedule MYCODE SUBSEQUENT ADULT Lab Routine [employer] Research Other*[id number] Every 6 Months for 2 Occurrences starting 12/09/2024 until 12/29/2025 Scheduled Procedures Name Priority Associated Diagnoses Date/Ti me COLONOSCOPY FLEXIBLE PROXIMAL DIAGNOSTIC Recall Screen for colon cancer Health Maintenance Due Date Last Done Comments Hepatitis B Vaccine (1 of 3 - 19+ 3-dose series) 1996 HPV/Co-Test 2007 Cologuard 2022 Fecal Occult Blood Test 2022 Sigmoidoscopy 2022 Depression Screening 05/19/2022 05/19/2021 Cervical Cancer Screening 01/30/2024 Pap Smear 01/30/2024 01/29/2021, 09/28, 09/19/2003, Additional history exists COVID-19 Vaccine ( season) 2024 03/22/2022, 06/15/2021, 05/25/2021 Influenza Vaccine (FLU shot) (#1) 2024 10/02/2002 Mammogram 07/08/2025 07/08/2024, 06/0 11/2021, 02/08/2021, Additional history exists Diabetes Screening 09/27/2025 09/27/2022, 0 03/25/2021, 07/27/2018 TSH 11/15/2025 11/15/2024, 07/0 01/2023, 04/12/2023, Additional history exists DTap/Tdap Vaccines (2 - Td or Tdap) 07/27/2028 07/27/2018 Lipid Panel 11/15/2029 11/15/2024, 07/27/2018 Colonoscopy 02/14/2033 02/14/2023, 02/14/2023 Colorectal Cancer Screening 02/14/2033 Pneumococcal Vaccine: Pediatrics (0 to 5 Years) and At-Risk Patients (6 to 18 Years and 19+ Years) Completed 09/23/2022, 07/27/2018 RETIRED - COLONOSCOPY EVERY 10 YEARS,AGES 18-50 Discontinued 02/14/2023, 02/14/2023 HPV (Gardasil) Vaccine Aged Out No lo nger eligible based on patient's age to complete this topic MENINGOCOCCAL (MENACTRA/MENVEO) Aged Out No longer eligible based on patient's age to complete this topic documented as of this encounter Medical Devices Not on filedocumented as of this encounter Visit Diagnoses Diagnosis [employer] [facility] Other*[id number] documented in this encounter Care Teams Director Executive Communications Relationship Specialty Start Date End Date Kaley Osullivan CRNP [address] [place] [address] [place] [phone] PCP - General Nurse Practitioner 12/05/24 documented as of this encounter
--- OUTSIDE RECORDS SUMMARY | 2025-01-13 03:08 | External Medical Summary | Summary of Care ---
Author Name Unknown Organization [facility] Address [address] [place] [address] Phone [phone] Care Team Providers Care Kitchen And Bath Designer Name Role Phone Taylor Gonzalez MD Primary Care Prov ider Reason for Visit * Reason Onset Date Comments Referral 01/03/2025 Encounter Details Date Type Department Care Team (Late st Contact Info) Description 01/03/2025 Telephone Gastroenterology, [facility] [address] [place] [address] Specified, Zz No Resource [address] [place] [address] Referral Allergies Active Allergy Reactions Criticality Noted Date Comments Penicillins 06/28/2002 rash Sulfa Antibiotics 04/02/2003 Hives documented as of this encounter (statuses as of 01/03/2025) Medications Excedrin Extra Strength 250-250-65 MG Oral Tablet (Aspirin-Acetamino phen-Caffeine) Take 1 Tablet by mouth every 6 hours as needed. Active Fluticasone-Salmet anjali 250-50 MCG/ACT Inhalation Aerosol Powder Breath Activated (Advair Diskus)Indications :Wheeze Inhale by mouth 1 Puff in the morning AND 1 Puff before bedtime. 60 Each 5 09/23/20 Active Additional Information Patient not taking.Reported on 12/31/2024 Acetaminophen 325 MG Oral Tablet (Tylenol) Take 2 Tablets by mouth every 6 hours as needed for Pain, Mild. Alternating with Ibuprofen. 60 Tablet 04/12/20 23 Active Additional Information Patient not taking.Reported on 01/02/2025 Escitalopram Oxalate 20 MG Oral Tablet (Lexapro)Indicatio [...] ANXIETY 60 Tablet 5 06/14/20 24 Active Ibuprofen 600 MG Oral Tablet (Motrin)Indication s:Fibroids, intramural TAKE ONE TABLET BY MOUTH EVERY EIGHT HOURS WITH FOOD. take during periods for 3 days 27 Tablet 09/21/20 24 Active Albuterol Sulfate HFA 108 (90 [...] morning. 90 Tablet 3 11/19/20 24 Active Cyclobenzaprine HCl 10 MG Oral Tablet (Flexeril)Indicati ons:Tension headache TAKE ONE TABLET BY MOUTH TWICE DAILY NEEDED for headache or muscle spasms 20 Tablet 12/20/19 25 Active Additional Information Patient taking differently: 10 mg Oral TID PRN, Reported on 01/02/2025 Ondansetron HCl 4 MG Oral Tablet (Zofran)Indication s:Nausea TAKE ONE TABLET BY MOUTH EVERY TWELVE HOURS NEEDED for nausea 30 Tablet 12/20/19 25 Active Esomeprazole Magnesium 20 MG Oral Packet (NexIUM) Take 40 mg by mouth daily before breakfast. 180 Each 3 12/31/19 25 Active Famotidine 20 MG Oral Tablet (Pepcid) Take 1 Tablet by mouth at bedtime. 30 Tablet 5 12/31/19 25 Active Ibuprofen 600 MG Oral Tablet (Motrin) Take 1 Tablet by mouth every 6 hours as needed. 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 Nephrolithiasis 08/07/2020 Uterine fibroid 07/27/2018 Adjustment disorder with anxious mood 07/27/2018 Dysmenorrhea 07/27/2018 GERD (gastroesophageal reflux disease) 4 Overweight (BMI 25.0-29.9) 09/19/2003 COMMON MIGRAINE WITHOUT MENTION OF INTRACTABLE M IGRAINE 05/21/2003 Tension headache 05/21/2003 Migraine aura, persistent Irritable bowel syndrome documented as of this encounter (statuses as of 01/03/2025) Resolved Problems Problem Noted Date Diagnosed Date Resolved Date 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 Irritable bowel syndrome 06/28/2002 Encounter for supervision of other normal 05/27/2002 Overview (03/29/2016): ICD-10 update of inactive term documented as of this encounter (statuses as of 01/03/2025) Immunizations Name Administration Dates Next Due COVID-19 mRNA, LNP-s, No Pre serve, 2-Dose Series ([employer]ora) 06/15/2021,05/25/2021 COVID-19, LNP-s, No Preserve , Shoaib-sucrose, Ages 12+ (Pfizer) 03/22/2022 Pneumococcal Conjugate Vaccine, 20-valent (Prevn ar20) 09/23/2022 Pneumococcal Polysaccharide PPV23 (Pneumovax) Seasonal Influenza Vac., MDV, IM, 0.5 mL (Fluzon e) 10/02/2002 TDAP (age 10 and older)(Boostrix) 07/27/2018 documented [...] on file documented as of this encounter Miscellaneous Notes * Telephone Encounter - Babita Kent OSA - 01/03/2025 9:44 AM EST Pt has already been contacted 4 times. Sending letter * Telephone Encounter - Tricia Dumas OSA - 01/03/2025 9:36 AM EST Pt seen jeanne voraiso and she ordered the pt a neurology referral for headaches please call pt to schedule documented in this encounter Plan of Treatment Upcoming Encounters Date Type Department Care Team (Latest Contact Info) Description 02/21/2025 8:30 AM EDT Hospital Encounter ENDO [facility], Endoscopy Room [facility] [address] [place] [phone] Selina Loredo MD [address] [place] [address] 02/21/2025 8:30 AM EDT - 02/21/2025 9:00 AM EDT Surgery ENDO [facility], Endoscopy Room [facility] [address] [place] [phone] Selina Loredo MD [address] [place] [address] ESOPHAGOGASTRODUODENOSCOPY (EGD), FLEXIBLE, TRANSORAL, DIAGNOSTIC 03/05/2025 2:40 PM EDT Office Visit [address] [place] [phone] Taylor Gonzalez MD [address] [place] [address] [place] [address] 04/17/2025 8:30 AM EDT Office Visit Gastroenterology , [facility] [address] [place] [address] Jeanne Goldsmith CRNP [address] [facility] [place] [address] Scheduled Procedures Name Priority Associated Diagnoses Date/Ti me ESOPHAGOGASTRODUODENOSCOPY ( EGD), FLEXIBLE, TRANSORAL, DIAGNOSTIC Gastroesophageal reflux disease with esophagitis without hemorrhage PUD (peptic ulcer disease) 02/21/2025 8:30 AM EDT COLONOSCOPY FLEXIBLE PROXIMA L DIAGNOSTIC Recall Screen for colon cancer Health [...] 07/08/2024, 06/0 11/2021, 02/08/2021, Additional history exists TSH 12/29/2025 12/29/2024, 10/28, 05/29/2023, Additional history exists Diabetes Screening 12/29/2027 12/29/2024, 0 12/16/2024, 09/27/2022, Additional history exists DTap/Tdap Vaccines (2 - Td or Tdap) 07/27/2028 07/27/2018 Lipid Panel 12/16/2029 12/16/2024, 10/28, 07/27/2018 Colonoscopy 02/14/2033 02/14/2023, 02/14/2023 Colorectal Cancer [...] Not on filedocumented as of this encounter Care Teams Kitchen And Bath Designer Relationship Specialty Start Date End Date Taylor Gonzalez MD [address] [place] [address] [place] [phone] PCP - General Family Medicine 12/19/24 documented as of this encounter
--- OUTSIDE RECORDS SUMMARY | 2025-01-13 03:08 | External Medical Summary ---
Author Name Unknown Address Unknown Organization K01:LABORATORY [facility] [place] - [facility] [place] [address] Laboratory Report Ordering Provider Test Date Status MIRELLA OLIVA 12/16/2024 12:02:03 Final Observation Date Value Abnormality Reference (Units ) Status WBC, Total 12/16/2024 12:02:03 12.45 Above high normal 4 .00-10.80 (K/uL) Final RBC 12/16/2024 12:02:03 4.52 3.85-5.15 (M/uL) Final Hemoglobin 12/16/2024 12:02:03 14.1 12.0-15.3 (g/dL) Final Anemia reflex testing trigge rs on a HGB < 12.0 for Females and HGB < 13.0 for Males in accordance with the WHO Anemia Guidelines
Anemia reflex testing triggers on a HGB < 12.0 for Females and HGB < 13.0 for Males in accordance with the WHO Anemia Guidelines HCT 12/16/2024 12:02:03 44.0 36.0-45.2 (%) Final MCV 12/16/2024 12:02:03 97.3 81.5-97.5 (fL) Final MCH 12/16/2024 12:02:03 31.2 27.0-34.0 (pg) Final MCHC 12/16/2024 12:02:03 32.0 32.0-36.0 (g/dL) Final RDW 12/16/2024 12:02:03 13.4 11.5-15.5 (%) Final Platelets 12/16/2024 12:02:03 442 Above hi gh normal 140-400 (K/uL) Final MPV 12/16/2024 12:02:03 11.5 6.6-11.1 ( fL) Final Nucleated erythrocytes/100 leukocytes [Ratio] in Blood by Automated count 12/16/2024 12:02:03 0 <=0 (/100 WBCs) Final Performing Location LABORATORY [facility] - [address] [facility] [id number]
--- OUTSIDE RECORDS SUMMARY | 2025-01-13 03:08 | External Medical Summary | Summary of Care ---
Author Name Unknown Organization [facility] [address] [address] Phone [phone] Care Team Providers Care Hvac Installer Name Role Phone Abdulkadir Gonzalez MD Primary Care Prov ider Reason for Visit * Reason Onset Date Comments Test Results Lab 11/18/2024 Encounter Details Date Type Department Care Team (Late st Contact Info) Description 11/18/2024 Telephone Centralized Clinical Pharmacy Services, [facility] [address] [place] [address] [place] [address] [facility] [address] [place] [address] Test Results Lab Allergies Active Allergy Reactions Criticality Noted Date Comments Penicillins 06/28/2002 rash Sulfa Antibiotics 04/02/2003 Hives documented as of this encounter (statuses as of 11/19/2024) Medications Esomeprazole Magnesium 20 MG Oral Packet [...] as of this encounter (statuses as of 11/19/2024) Active Problems Problem Noted Date Diagnosed Date 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 Nephrolithiasis 08/07/2020 Uterine fibroid 07/27/2018 Adjustment disorder with anxious mood 07/27/2018 Dysmenorrhea 07/27/2018 GERD (gastroesophageal reflux disease) 4 Overweight (BMI 25.0-29.9) 09/19/2003 COMMON MIGRAINE WITHOUT MENTION OF INTRACTABLE M IGRAINE 05/21/2003 Tension headache 05/21/2003 Migraine aura, persistent Irritable bowel syndrome documented as of this encounter (statuses as of 11/19/2024) Resolved Problems Problem Noted Date Diagnosed Date Resolved Date 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 Irritable bowel syndrome 06/28/2002 Encounter for supervision of other normal 05/27/2002 Overview (03/29/2016): ICD-10 update of inactive term documented as of this encounter (statuses as of 11/19/2024) Immunizations Name Administration Dates Next Due COVID-19 mRNA, LNP-s, No Pre serve, 2-Dose Series (Pfizer) 06/15/2021,05/25/2021 COVID-19, LNP-s, No Preserve , Shoaib-sucrose, [...] as of this encounter Miscellaneous Notes * Addendum Note - Abdulkadir Gonzalez MD - 11/19/2024 9:51 AM EST Addended by: ABDULKADIR GALVAN on: 11/19/2024 09:51 AM Modules accepted: Orders * Telephone Encounter - Abdulkadir Gonzalez MD - 11/19/2024 9:51 AM EST Agree and signed. Thank you! * Addendum Note - Ryan Ramirez RPh - 11/18/2024 5:59 PM ESTAddended by: RYAN RAMIREZ on: 11/18/2024 05:59 PM Modules accepted: Orders * Telephone Encounter - Ryan Ramirez RPh - 11/18/2024 5:48 PM EST Reviewed lipid panel with patient. Counseled on risks of elevated cholesterol. Patient is in agreement to start moderate intensity statin. Counseled on side effects/adherence to medication. Recommend rosuvastatin and repeat labs in 3 months: Pending Prescriptions: Disp Refills Rosuvastatin Calcium 10 MG Oral Tablet (C*90 Tab*0 Sig: Take 1 Tablet by mouth in the morning. Please sign if agreeable. Thank you, Ryan Ramirze, PharmD Clinical Pharmacist [facility] ([facility]) 11/18/24 5:53 PM [phone] * Telephone Encounter - Angélica Hollins RPh - 11/18/2024 4:15 PM EST Called patient to review most recent lab results. Lipid panel and ASCVD risk elevated. Lab Results Component Value Date/Time LDL CHOLESTEROL (CALCULATED) - [facility] 185 (H) 11/15/2024 12:44 PM LDL CHOLESTEROL (CALCULATED) - [facility] 126 07/27/2018 02:53 PM LDL CHOLESTEROL (DIRECT MEASURE) - [facility] NOT APPLICABLE 07/27/2018 02:53 PM The 10-year ASCVD risk score (Gricel GATICA, et al., 2019) is: 7.8% Values used to calculate the score: Age: 49 years Sex: Female Is Non- : No Diabetic: No Tobacco smoker: Yes Systolic Blood Pressure: 118 mmHg Is BP treated: No HDL Cholesterol: 34 mg/dL Total Cholesterol: 264 mg/dL Recommend patient start moderate intensity statin. Left message for patient to call back. Please transfer her back to myself. If I'm not available, transfer to next available [facility]. ThanksAngélica PharmD Clinical Pharmacist [facility] Pharm[facility] Services ([facility]) [phone] 11/18/2024, 4:17 PM documented in this encounter Plan of Treatment Upcoming Encounters Date Type Department Care Team (Late st Contact Info) Description 12/31/2024 7:30 AM EST Office Visit Gastroenterology, [facility] [address] [place] [address] Jeanne Goldsmith CRNP [address] [place] [address] 03/05/2025 2:40 PM EDT Office Visit Family Medicine [address] [place] [phone] Abdulkadir Gonzalez MD [address] [place] [address] [place] [address] Scheduled Orders Name Type Priority Associated Diagnoses Orde r Schedule LIPID PANEL WITH DIRECT LDL IF TG IS HIGH Lab Routine Hyperlipidemia, unspecified hyperlipidemia type Expected: 11/18/2024 (Approximate), Expires: 02/16/2025 Scheduled Procedures Name Priority Associated Diagnoses Date/Ti [...] 5 Years) and At-Risk Patients (6 to 64 Years) Completed 09/23/2022, 07/27/2018 RETIRED - COLONOSCOPY EVERY 10 YEARS,AGES 18-50 Discontinued 02/14/2023, 02/14/2023 HPV (Gardasil) Vaccine Aged Out No lo nger eligible based on patient's age to complete this topic MENINGOCOCCAL (MENACTRA/MENVEO) Aged Out No longer eligible based on patient's age to complete this topic documented as of this encounter Medical Devices Not on filedocumented as of this encounter Visit Diagnoses Diagnosis Hyperlipidemia, unspecified hyperlipidemia type- Primary documented in this encounter Care Teams Hvac Installer Relationship Specialty Start Date End Date Abdulkadir Gonzalez MD [address] [place] [address] [place] [address] PCP - General Family Medicine 07/27/18 documented as of this encounter
--- OUTSIDE RECORDS SUMMARY | 2025-01-13 03:08 | External Medical Summary | Summary of Care ---
Author Name Unknown Organization [facility] Address [address] [place] [address] Phone [phone] Care Team Providers Care Director Hospice Operations Name Role Phone Taylor Gonzalez MD Primary Care Prov ider Encounter Details Date Type Department Care Team (Late st Contact Info) Description 12/31/2024 Orders Only Family Medicine [address] [phone] Taylor Gonzalez MD [address] [place] [address] [place] [address] Allergies Active Allergy Reactions Criticality Noted Date Comments Penicillins 06/28/2002 rash Sulfa Antibiotics 04/02/2003 Hives documented as of this encounter (statuses as of 12/31/2024) Medications Excedrin Extra Strength 250-250-65 MG Oral Tablet (Aspirin-Acetamino phen-Caffeine) Take 1 Tablet by mouth every 6 hours as needed. Active Fluticasone-Salmet anjali 250-50 MCG/ACT Inhalation Aerosol Powder Breath Activated (Advair Diskus)Indications :Wheeze Inhale by mouth 1 Puff in the morning AND 1 Puff before bedtime. 60 Each 5 09/23/20 22 Active Additional Information Patient not taking.Reported on [...] muscle spasms 20 Tablet 12/20/19 25 Active Ondansetron HCl 4 MG Oral Tablet [...] bedtime. 30 Tablet 5 12/31/19 25 Active documented as of this encounter (statuses as of 12/31/2024) Active Problems Problem Noted Date Diagnosed Date 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 Nephrolithiasis 08/07/2020 Uterine fibroid 07/27/2018 Adjustment disorder with anxious mood 07/27/2018 Dysmenorrhea 07/27/2018 GERD (gastroesophageal reflux disease) 4 Overweight (BMI 25.0-29.9) 09/19/2003 COMMON MIGRAINE WITHOUT MENTION OF INTRACTABLE M IGRAINE 05/21/2003 Tension headache 05/21/2003 Migraine aura, persistent Irritable bowel syndrome documented as of this encounter (statuses as of 12/31/2024) Resolved Problems Problem Noted Date Diagnosed Date Resolved Date 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 Irritable bowel syndrome 06/28/2002 Encounter for supervision of other normal 05/27/2002 Overview (03/29/2016): ICD-10 update of inactive term documented as of this encounter (statuses as of 12/31/2024) Immunizations Name Administration Dates Next Due COVID-19 mRNA, LNP-s, No Pre serve, 2-Dose Series (PhytoCeutica) 06/15/2021,05/25/2021 COVID-19, LNP-s, No Preserve , Shoaib-sucrose, [...] EDT Hospital Encounter ENDO [facility], Endoscopy Room [facility] [address] [place] [phone] Selina Loredo MD [address] [place] [address] 02/21/2025 8:30 AM EDT - 02/21/2025 9:00 AM EDT Surgery ENDO [facility], Endoscopy Room [facility] [address] [place] [phone] Selina Loredo MD [address] [place] [address] ESOPHAGOGASTRODUODENOSCOPY (EGD), FLEXIBLE, TRANSORAL, DIAGNOSTIC 03/05/2025 2:40 PM EDT Office Visit Family Medicine [address] [phone] Taylor Gonzalez MD [address] [place] [address] [place] [address] 04/17/2025 8:30 AM EDT Office Visit Gastroenterology , [facility] [address] [place] [address] Jeanne Goldsmith CRNP [address] [place] [address] Scheduled Procedures Name Priority Associated Diagnoses Date/Ti [...] shot) (#1) 2024 10/02/2002 Mammogram 07/08/2025 07/08/2024, 0611/2021, 02/08/2021, Additional history exists TSH 12/29/2025 12/29/2024, [...] Not on filedocumented as of this encounter Procedures Procedure Name Priority Date/Time Associated Diagnosis Comments CHEMISTRY-OUTSIDE Routine 12/29/2024 TSH Routine 12/29/2024 documented in this encounter Results * TSH (12/29/2024) TSH - OUTSIDE LAB 1.430 0.360 - 3.740 MCLU/ML OUTSIDE LAB (SEE SCANNED REPORT) Blood Venous blood specimen / Unknown 12/29/2024 Mickie Decker MD LAB BLOOD ORDERABLES Final Result OUTSIDE LAB (SEE SCANNED REPORT) * CHEMISTRY-OUTSIDE (12/29/2024) Not all results display below - see scan for full detail SCAN INCLUDES ER [facility]: CBCD, D-DIMER, BMP, CK TOTAL, TROPONIN, TSH OUTSIDE LAB (SEE SCANNED REPORT) CREATININE 0.85 0.55 - 1.02 MG/DL OUTSIDE LAB (SEE SCANNED REPORT) EGFR 85 >60 ML/MIN OUTSIDE LAB (SEE SCANNED REPORT) POTASSIUM 3.6 3.5 - 5.1 MG/DL OUTSIDE LAB (SEE SCANNED REPORT) GLUCOSE 79 70 - 110 MG/DL OUTSIDE LAB (SEE SCANNED REPORT) HOURS FASTING OUTSID E LAB (SEE SCANNED REPORT) TRIGLYCERIDES-OU TSIDE LAB OUTSIDE LAB (SEE SCANNED REPORT) CHOLESTEROL-OUTS [facility] LAB OUTSIDE LAB (SEE SCANNED REPORT) HDL-OUTSIDE LAB OUTS [facility] LAB (SEE SCANNED REPORT) CHOL/HDL RATIO-OUTSIDE LAB OUTSIDE LAB (SEE SCANNED REPORT) LDL (CALCULATED)-OUT SIDE LAB OUTSIDE LAB (SEE SCANNED REPORT) LDL (DIRECT MEASURE)-OUTSIDE LAB OUTSIDE LAB (SEE SCANNED REPORT) HEMOGLOBIN, A4M-DMITURD LAB OUTSIDE LAB (SEE SCANNED REPORT) PHOSPHORUS-OUTSI DE LAB OUTSIDE LAB (SEE SCANNED REPORT) PTH-OUTSIDE LAB OUTS [facility] LAB (SEE SCANNED REPORT) MICROALBUMIN RATIO-OUTSIDE LAB OUTSIDE LAB (SEE SCANNED REPORT) PROTEIN, UA-OUTSIDE LAB OUTSIDE LAB (SEE SCANNED REPORT) HGB 13.4 12.0 - 16.0 G/DL OUTSIDE LAB (SEE SCANNED REPORT) 12/29/2024 Mickie Decker MD LABORATORY Final Resu lt OUTSIDE LAB (SEE SCANNED REPORT) documented in this encounter Care Teams Director Hospice Operations Relationship Specialty Start Date End Date Taylor Gonzalez MD [address] [place] [address] [place] [address] PCP - General Family Medicine 12/19/24 documented as of this encounter
--- OUTSIDE RECORDS SUMMARY | 2025-01-13 03:08 | External Medical Summary | Summary of Care ---
Author Name Unknown Organization [facility] Address [address] [place] [address] Phone [phone] Care Team Providers Care Smokehouse Worker Name Role Phone Taylor Gonzalez MD Primary Care Prov ider Reason for Visit * Reason Comments Emergency Department Follow-Up Encounter Details Date Type Department Care Team (Late st Contact Info) Description 01/02/2025 11:00 AM EST Office Visit Family Medicine [address] [phone] Kaley Osullivan [address] [place] [id number] Costochondritis*; Abnormal CXR Allergies Active Allergy Reactions Criticality Noted Date Comments Penicillins 06/28/2002 rash Sulfa Antibiotics 04/02/2003 Hives documented as of this encounter (statuses as of 01/02/2025) Medications Excedrin Extra Strength 250-250-65 MG Oral [...] as of this encounter (statuses as of 01/02/2025) Active Problems Problem Noted Date Diagnosed Date 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 Nephrolithiasis 08/07/2020 Uterine fibroid 07/27/2018 Adjustment disorder with anxious mood 07/27/2018 Dysmenorrhea 07/27/2018 GERD (gastroesophageal reflux disease) 4 Overweight (BMI 25.0-29.9) 09/19/2003 COMMON MIGRAINE WITHOUT MENTION OF INTRACTABLE M IGRAINE 05/21/2003 Tension headache 05/21/2003 Migraine aura, persistent Irritable bowel syndrome documented as of this encounter (statuses as of 01/02/2025) Resolved Problems Problem Noted Date Diagnosed Date Resolved Date 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 Irritable bowel syndrome 06/28/2002 Encounter for supervision of other normal 05/27/2002 Overview (03/29/2016): ICD-10 update of inactive term documented as of this encounter (statuses as of 01/02/2025) Immunizations Name Administration Dates Next Due COVID-19 mRNA, LNP-s, No Pre serve, 2-Dose Series (YieldBuild) 06/15/2021,05/25/2021 COVID-19, LNP-s, No Preserve , Shoaib-sucrose, Ages 12+ (YieldBuild) 03/22/2022 Pneumococcal Conjugate Vaccine, 20-valent (Prevn ar20) 09/23/2022 Pneumococcal Polysaccharide PPV23 (Pneumovax) TDAP (age 10 and older)(Boostrix) 07/27/2018 documented as of this encounter Social History Tobacco Use Types Packs/Day Years Used Date Smoking Tobacco: Every Day Cigarettes 0.8 25 Smokeless Tobacco: Never Tobacco Cessation:Ready to Q uit: Not Asked; Counseling Given: Not Answered Alcohol Use Standard Drinks/Week Comments No 0 [...] on file documented as of this encounter Last Filed Vital Signs Vital Sign Reading Time Taken Comments Blood Pressure 104/68 01/02/2025 11:08 AM EST Pulse 97 01/02/2025 11:08 AM EST Temperature 36.3 C (97.4 F) 01/02/2025 11:[address] Respiratory Rate 16 01/02/2025 11:08 AM EST Oxygen Saturation 98% 01/02/2025 11:08 AM EST Inhaled Oxygen Concentration - - Weight 67.1 kg (148 lb) 01/02/2025 11:08 AM EST Height - - Body Mass Index 28.9 07/16/2024 3:52 PM EDT documented in this encounter Progress Notes * Kaley Osullivan CRNP - 01/02/2025 11:10 AM EST Images from the original note were not included. History of Present Illness Karla Jarquin is a 49 year old female that presents for Emergency Department Follow-Up Evaluated at [facility] on 12/29/24 for left sided rib pain that radiates to left chest wall. Started about 1 week ago. Pain is constant. Cardiac workup in the ER unremarkable. Did have a CXR which showed prominent central bronchovascular markings and fine opacities in the lower lungs worse on the right. Notes chronic cough from smoking, more recently has been productive. No worsening sob. No fever, chills, congestion, sore throat. Dx with costochondritis. Discharged on Ibuprofen and Flexeril. Has not helped pain at all. Also takes Excedrin and soaking in warm tub without relief. Patient Active Problem List Diagnosis COMMON MIGRAINE WITHOUT MENTION OF INTRACTABLE MIGRAINE Tension headache Overweight (BMI 25.0-29.9) GERD (gastroesophageal reflux disease) Uterine fibroid Adjustment disorder with anxious mood Dysmenorrhea Migraine aura, persistent Irritable bowel syndrome Nephrolithiasis Fibroadenoma of left breast Current Outpatient Medications Medication Sig Dispense Refill Excedrin Extra Strength 250-250-65 MG Oral Tablet (Ljytfkc-Buvriptbjermx-Crzwquyt) Take 1 Tablet bymouth every 6 hours as needed. Escitalopram Oxalate 20 MG Oral Tablet (Lexapro) TAKE ONE TABLET BY MOUTH EVERY DAY 90 Tablet 1 Topiramate 50 MG Oral Tablet (topAMAX) TAKE ONE TABLET BY MOUTH EVERY DAY 30 Tablet 5 busPIRone HCl 15 MG Oral Tablet (Buspar) TAKE 1 TABLET BY MOUTH TWICE DAILY FOR ANXIETY 60 Tablet 5 Ibuprofen 600 MG Oral Tablet (Motrin) TAKE ONE TABLET BY MOUTH EVERY EIGHT HOURS WITH FOOD. take during periods for 3 days 27 Tablet 0 Levothyroxine Sodium 25 MCG Oral Tablet (Levoxyl) Take 1 Tablet by mouth daily first thing in the morning. (at least 30 min prior to breakfast or other meds) 90 Tablet 0 Sucralfate 1 GM Oral Tablet (Carafate) Take 1 Tablet by mouth 4 times a day before meals and at bedtime. half an hour before meals and at bedtime 120 Tablet 5 Rosuvastatin Calcium 10 MG Oral Tablet (Crestor) Take 1 Tablet by mouth in the morning. 90 Tablet 3 Cyclobenzaprine HCl 10 MG Oral Tablet (Flexeril) TAKE ONE TABLET BY MOUTH TWICE DAILY NEEDED forheadache or muscle spasms (Patient taking differently: Take 1 Tablet by mouth 3 times a day as needed.) 20 Tablet 0 Esomeprazole Magnesium 20 MG Oral Packet (NexIUM) Take 40 mg by mouth daily before breakfast. 180 Each 3 Famotidine 20 MG Oral Tablet (Pepcid) Take 1 Tablet by mouth at bedtime. 30 Tablet 5 Ibuprofen 600 MG Oral Tablet (Motrin) Take 1 Tablet by mouth every 6 hours as needed. Fluticasone-Salmeterol 250-50 MCG/ACT Inhalation Aerosol Powder Breath Activated (Advair Diskus) Inhale by mouth 1 Puff in the morning AND 1 Puff before bedtime. (Patient not taking: Reported on 12/31/2024) 60 Each 5 Acetaminophen 325 MG Oral Tablet (Tylenol) Take 2 Tablets by mouth every 6 hours as needed for Pain, Mild. Alternating with Ibuprofen. (Patient not taking: Reported on 01/02/2025) 60 Tablet 0 Albuterol Sulfate HFA 108 (90 Base) MCG/ACT Inhalation Aerosol Solution INHALE TWO PUFFS BY MOUTH FOUR TIMES DAILY 8.5 g 1 Ondansetron HCl 4 MG Oral Tablet (Zofran) TAKE ONE TABLET BY MOUTH EVERY TWELVE HOURS NEEDED fornausea 30 Tablet 0 No current facility-administered medications for this visit. 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 Uterine fibroid 07/27/2018 Past Surgical History: Procedure Laterality Date COLONOSCOPY, DIAGNOSTIC (RECTUM) 02/14/2023 diverticulosis/recall 10 years/COLONOSCOPY FLEXIBLE PROXIMAL DIAGNOSTIC performed by Marc Evans MD at ENDOSCOPY [facility] DENTAL SURGERY PROCEDURE NEC wisdom teeth ECHO EXAM OF HEART (2D ECHO) 07/14/2022 normal LV size and function, EF 65-69%, grade 1 diastolic dysfunction., valves normal, LA normal, EXC BREAST LESION RADMARK Left 04/14/2021 EXCISION OF BREAST LESION RADIOLOGICAL MARKER performed by Shelby Mcneal MD at OR [facility] HYSTEROSCOPY W/BIOPSY AND/OR POLYPECTOMY W/WO D&C Bilateral 07/20/2023 HYSTEROSCOPY WITH BIOPSY AND/OR POLYPECTOMY WITH OR WITHOUT D&C performed by Desmond Woodard MD at OR [facility] LIGATE/CUT OVIDUCT(S) 2007 PELVIC EXAM UNDER ANESTHESIA, NOT LOCAL N/A 07/20/2023 PELVIC EXAMINATION UNDER ANESTHESIA performed by Desmond [place]ard MD at OR [facility] US GUIDED BREAST BIOPSY LEFT Left 02/19/2021 fibroadenoma US GUIDED BREAST BIOPSY RIGHT Right 08/31/2018 breast tissue with fibrocystic changes and focal torres ductal chronic inflammation Social History Socioeconomic History Marital status: Spouse name: Not on file Number of children: Not on file Years of education: Not on file Highest education level: Not on file Occupational History 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 Employer: [employer] Tobacco Use Smoking status: Every Day Current packs/day: 0.75 Average packs/day: 0.8 packs/day for 25.0 years (18.8 ttl pk-yrs) Types: Cigarettes Smokeless tobacco: Never Vaping Use Vaping status: Never Used Substance and Sexual Activity Alcohol use: No Drug use: No Sexual activity: Yes Partners: Male control/protection: Surgical Comment: tubal ligation Other Topics Concern Not on file Social History Narrative Not on file Social Needs Financial Resource Strain: Not on file Food Insecurity: Not on file Transportation Needs: Not on file Social Connections: Not on file Housing Stability: Not on file Physical Exam Vitals: 01/02/25 1108 Temp: 97.4 F (36.3 C) Pulse: 97 Resp: 16 SpO2: 98% BP: 104/68 General: A&Ox3 and no distress Heart: regular rate & rhythm, no murmur, no gallops, S-1 normal, and S-2 normal / reproducible chest wall pain on the left side Lungs: normal respiratory rate and rhythm, lungs clear to auscultation Extremities: no BLE edema Skin: warm and dry I have reviewed the following results: BMP results Recent Labs Units 12/29/24 0000 12/16/24 1202 SODIUM - [facility] mmol/L -- 142 POTASSIUM - [facility] MG/DL 3.6 3.7 CHLORIDE - [facility] mmol/L -- 105 CO2 - [facility] mmol/L -- 27 CREATININE - [facility] MG/DL 0.85 0.9 BUN - [facility] mg/dL -- 15 CBC results Recent Labs Units 12/29/24 0000 12/16/24 1202 04/12/23 0844 WBC K/uL -- 12.45* 10.48 HGB G/DL 13.4 14.1 14.2 HCT % -- 44.0 41.8 PLT K/uL -- 442* 329 Assessment and Plan Costochondritis - OTC Tylenol, avoid Ibuprofen while on Prednisone, rest, heat/ice - predniSONE 10 MG Oral Tablet (Deltasone); Take 5 tabs for 2 days, 4 tabs for 2 days, 3 tabs for 2days, 2 tabs for 2 days 1 tab for 2 days Abnormal CXR - suspect pain is likely muscular, but given smoking hx and XR findings will do Z-haseeb and repeat imaging in about 1 month - Azithromycin 250 MG Oral Tablet (Zithromax Z-Haseeb); Take two tablets by mouth on first day, then 1tablet daily until gone - XR CHEST 2 VIEWS; Future Wrap-Up Follow Up: Return if symptoms worsen or fail to improve. Time: I spent a total of 20-29 minutes (exact time 20 mins) on the date of service in preparation, delivery, and documentation of the care provided to Karla Jarquin excluding any time spent in the performance of separately billed services. Cosigned by Ron Deleon MD at 01/02/2025 11:56 AM EST documented in this encounter Nursing Notes * Rhea Fuentes LPN - 01/02/2025 11:04 AM EST [facility] Er follow up Pain on right side still the same. Ibuprofen and Flexeril not helping. documented in this encounter Plan of Treatment Upcoming Encounters Date Type Department Care Team (Latest Contact Info) Description 02/21/2025 8:30 AM EDT Hospital Encounter ENDO [facility], Endoscopy Room [facility] [address] [phone] Selina Loredo MD [address] [place] [address] 02/21/2025 8:30 AM EDT - 02/21/2025 9:00 AM EDT Surgery ENDO [facility], Endoscopy Room [facility] [address] [phone] Selina Loredo MD [address] [place] [address] ESOPHAGOGASTRODUODENOSCOPY (EGD), FLEXIBLE, TRANSORAL, DIAGNOSTIC 03/05/2025 2:40 PM EDT Office Visit Family Medicine [address] [place] [phone] Taylor Gonzalez MD [address] [place] [address] [place] [address] 04/17/2025 8:30 AM EDT Office Visit Gastroenterology , [facility] [address] [place] [address] Jeanne Goldsmith CRNP [address] [place] [address] Scheduled Orders Name Type Priority Associated Diagnoses Orde r Schedule XR CHEST 2 VIEWS Medical Imaging Routine Abnormal CXR Expected: 01/30/2025, Expires: 01/30/2026 Scheduled Procedures Name Priority Associated Diagnoses Date/Ti [...] as of this encounter Visit Diagnoses Diagnosis Costochondritis- Primary Tietze's disease Abnormal CXR Other nonspecific abnormal finding of lung field Gastroesophageal reflux disease with esophagitis without hemorrhage PUD (peptic ulcer disease) Peptic ulcer, unspecified site, unspecified as acute or chronic, without mention of hemorrhage, perforation, or obstruction documented in this encounter Care Teams Smokehouse Worker Relationship Specialty Start Date End Date Taylor Gonzalez MD [address] [place] [address] [place] [phone] PCP - General Family Medicine 12/19/24 documented as of this encounter
--- OUTSIDE RECORDS SUMMARY | 2025-01-13 03:08 | External Medical Summary ---
Author Name Unknown Address Unknown Organization [id number]:[facility] [place] [address] [place] [address] Laboratory Report Ordering Provider Test Date Status ASHLEY DAVIS 12/16/2024 12:02:03 Final Observation Date Value Abnormality Reference (Units ) Status LDL, (direct) 12/16/2024 12:02:03 73 <=129 (mg/dL) Final LDL Cholesterol Reference Ra nges (mg/dL):
<70 Target level for high risk ASCVD patient
<100 Optimal for general population
100-129 Near optimal for general population
130-159 Borderline high
160-189 High
>=190 Very high Performing Location [facility] - [address] [place] [address]
--- OUTSIDE RECORDS SUMMARY | 2025-01-13 03:08 | External Medical Summary | Summary of Care ---
Author Name Unknown Organization [facility] Address [address] [place] [address] Phone [phone] Care Team Providers Care Him Clerk Name Role Phone Taylor Gonzalez MD Primary Care Prov ider Encounter Details Date Type Department Care Team (Late st Contact Info) Description 11/21/2024 Orders Only PATIENT PORTAL DO NOT DELETE THIS DEPT USED BY YONY PATRICK [id number] Allergies Active Allergy Reactions Criticality Noted Date Comments Penicillins 06/28/2002 rash Sulfa Antibiotics 04/02/2003 Hives documented as of this encounter (statuses as of 11/21/2024) Medications Esomeprazole Magnesium 20 MG Oral Packet [...] as of this encounter (statuses as of 11/21/2024) Active Problems Problem Noted Date Diagnosed Date 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 Nephrolithiasis 08/07/2020 Uterine fibroid 07/27/2018 Adjustment disorder with anxious mood 07/27/2018 Dysmenorrhea 07/27/2018 GERD (gastroesophageal reflux disease) 4 Overweight (BMI 25.0-29.9) 09/19/2003 COMMON MIGRAINE WITHOUT MENTION OF INTRACTABLE M IGRAINE 05/21/2003 Tension headache 05/21/2003 Migraine aura, persistent Irritable bowel syndrome documented as of this encounter (statuses as of 11/21/2024) Resolved Problems Problem Noted Date Diagnosed Date Resolved Date 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 Irritable bowel syndrome 06/28/2002 Encounter for supervision of other normal 05/27/2002 Overview (03/29/2016): ICD-10 update of inactive term documented as of this encounter (statuses as of 11/21/2024) Immunizations Name Administration Dates Next Due COVID-19 [...] 12/31/2024 7:30 AM EST Office Visit Gastroenterology, [facility] [address] [address] Jeanne Goldsmith CRNP [address] [address] 03/05/2025 2:40 PM EDT Office Visit Family Medicine [address] [place] [phone] Taylor Gonzalez MD [address] [place] [address] [place] [address] Scheduled Procedures Name Priority Associated Diagnoses Date/Ti [...] 09/28, 09/19/2003, Additional history exists COVID-19 Vaccine (2023- season) 2024 03/22/2022, 06/15/2021, 05/25/2021 Influenza Vaccine [...] filedocumented as of this encounter Care Teams Him Clerk Relationship Specialty Start Date End Date Taylor Gonzalez MD [address] [place] [address] [place] [address] PCP - General Family Medicine 07/27/18 documented as of this encounter
--- OUTSIDE RECORDS SUMMARY | 2025-01-13 03:08 | External Medical Summary | Summary of Care ---
Author Name Unknown Organization [facility] Address [address] [place] [address] Phone [phone] Care Team Providers Care Refrigeration Specialist Name Role Phone Abdulkadir Gonzalez MD Primary Care Prov ider Reason for Visit * Reason Onset Date Comments Test Results Lab 11/18/2024 Encounter Details Date Type Department Care Team (Late st Contact Info) Description 11/18/2024 Telephone [facility], [facility] [address] [place] [address] [place] [address] [facility] [address] [place] [address] Test Results Lab Allergies Active Allergy Reactions [...] Please sign if agreeable. Thank you, Ryan Ramirez, PharmD Clinical Pharmacist [facility] ([facility]) 11/18/24 5:53 PM [phone] * Telephone Encounter - Angélica Hollins RPh [...] I'm not available, transfer to next available [facility]. ThanksAngélica PharmD Clinical Pharmacist [facility] ([facility]) [phone] 11/18/2024, 4:17 PM documented in this encounter Plan of Treatment Upcoming Encounters Date Type Department Care Team (Late st Contact Info) Description 12/31/2024 7:30 AM EST Office Visit Gastroenterology, [facility] [address] [address] Jeanne Goldsmith CRNP [address] [address] 03/05/2025 2:40 PM EDT Office Visit Family Medicine [address] [place] [phone] Abdulkadir Gonzalez MD [address] [place] [address] [place] [address] Scheduled Orders Name Type Priority Associated Diagnoses [...] Primary documented in this encounter Care Teams Refrigeration Specialist Relationship Specialty Start Date End Date Abdulkadir Gonzalez MD [address] [place] [address] [place] [address] PCP - General Family Medicine 07/27/18 documented as of this encounter
--- OUTSIDE RECORDS SUMMARY | 2025-01-13 03:08 | External Medical Summary | Summary of Care ---
Author Name Unknown Organization [facility] Address [address] [place] [address] Phone [phone] Care Team Providers Care Headliner Installer Name Role Phone Taylor Gonzalez MD Primary Care Prov ider Encounter Details Date Type Department Care Team (Late st Contact Info) Description 12/29/2024 Result Scan Unspecified Department <No scans attached> Allergies Active Allergy Reactions Criticality Noted Date Comments Penicillins 06/28/2002 rash Sulfa Antibiotics 04/02/2003 Hives documented as of this encounter (statuses as of 12/30/2024) Medications Esomeprazole Magnesium 20 MG Oral Packet [...] for nausea 30 Tablet 12/20/19 25 Active documented as of this encounter (statuses as of 12/30/2024) Active Problems Problem Noted Date Diagnosed Date 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 Nephrolithiasis 08/07/2020 Uterine fibroid 07/27/2018 Adjustment disorder with anxious mood 07/27/2018 Dysmenorrhea 07/27/2018 GERD (gastroesophageal reflux disease) 4 Overweight (BMI 25.0-29.9) 09/19/2003 COMMON MIGRAINE WITHOUT MENTION OF INTRACTABLE M IGRAINE 05/21/2003 Tension headache 05/21/2003 Migraine aura, persistent Irritable bowel syndrome documented as of this encounter (statuses as of 12/30/2024) Resolved Problems Problem Noted Date Diagnosed Date Resolved Date 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 Irritable bowel syndrome 06/28/2002 Encounter for supervision of other normal 05/27/2002 Overview (03/29/2016): ICD-10 update of inactive term documented as of this encounter (statuses as of 12/30/2024) Immunizations Name Administration Dates Next Due COVID-19 [...] 12/31/2024 7:30 AM EST Office Visit Gastroenterology, [facility] [address] [address] Jeanne Goldsmith CRNP [address] [address] 03/05/2025 2:40 PM EDT Office Visit Family Medicine [address] [place] [phone] Taylor Gonzalez MD [address] [place] [address] [place] [address] Scheduled Procedures Name Priority Associated Diagnoses Date/Ti [...] 06/0 11/2021, 02/08/2021, Additional history exists TSH 11/15/2025 11/15/2024, 07/0 01/2023, 04/12/2023, Additional history exists Diabetes Screening 12/16/2027 12/16/2024, 1 11/27/2021, 03/25/2021, Additional history exists DTap/Tdap Vaccines (2 - [...] Procedure Name Priority Date/Time Associated Diagnosis Comments EKG SCANNED RESULT 12/29/2024 documented in this encounter Results * EKG SCANNED RESULT (12/29/2024) 12/29/2024 us No Physician Data Unknown EKG Final Result documented in this encounter Care Teams Headliner Installer Relationship Specialty Start Date End Date Taylor Gonzalez MD [address] [place] [address] [place] [address] PCP - General Family Medicine 12/19/24 documented as of this encounter
--- OUTSIDE RECORDS SUMMARY | 2025-01-13 03:08 | External Medical Summary ---
Author Name Unknown Address Unknown Organization [id number][place] [place] [address] [facility] [address] [facility] [id number] Laboratory Report Ordering Provider Test Date Status ASHLEY DAVIS 12/16/2024 12:02:03 Final Observation Date Value Abnormality Reference (Units ) Status Triglyceride 12/16/2024 12:02:03 191 Above high normal <=174 (mg/dL) Final Triglyceride Reference Range s (mg/dL):
<150 Acceptable
150-174 Borderline high
175-499 High
>=500 Very high Cholesterol 12/16/2024 12:02:03 148 <200 (mg /dL) Final Total Cholesterol Reference Ranges (mg/dL):
<200 Desirable
200-239 Borderline high
>=240 High HDL 12/16/2024 12:02:03 44 Below low normal >49 (mg/dL) Final HDL Cholesterol Reference Ra nges (mg/dL):
>=60 High (Desirable)
<50 Low (Undesirable) For Females
<40 Low (Undesirable) For Males NON-HDL CHOLESTEROL 12/16/2024 12:02:03 104 <=159 (mg/dL) Final Non-HDL Cholesterol Referenc e Range (mg/dL):
<100 Target level for high risk ASCVD patient
<130 Optimal for general population
130-159 Near optimal for general population
160-189 Borderline High
190-219 High
>=220 Very High Performing Location [facility] - [address] [place] [address]
--- OUTSIDE RECORDS SUMMARY | 2025-01-13 03:08 | External Medical Summary ---
Author Name Unknown Address Unknown Organization [id number]:[facility] [place] [address] [facility] [address] [place] [address] Laboratory Report Ordering Provider Test Date Status MIRELLA OLIVA 12/16/2024 12:02:03 Final Observation Date Value Abnormality Reference (Units ) Status BUN 12/16/2024 12:02:03 15 6-20 (mg/dL) Final Creatinine 12/16/2024 12:02:03 0.9 0.5-1.0 (mg/dL) Final Glomerular filtration rate/1.73 sq M.predicted [Volume Rate/Area] in Serum, Plasma or Blood by Creatinine-based formula (CKD-EPI) 12/16/2024 12:02:03 83 >=60 (mL/min) Final eGFR is calculated based on the CKD-EPI 2020 equation. Sodium 12/16/2024 12:02:03 142 135-146 (m mol/L) Final Potassium 12/16/2024 12:02:03 3.7 3.5-5.1 (m mol/L) Final Cl 12/16/2024 12:02:03 105 98-107 (mm ol/L) Final CO2 12/16/2024 12:02:03 27 22-32 (mmo l/L) Final Anion gap 12/16/2024 12:02:03 10 7-15 (mmol /L) Final Glucose 12/16/2024 12:02:03 83 70-120 (mg /dL) Final Calcium 12/16/2024 12:02:03 9.5 8.4-10.2 ( mg/dL) Final Performing Location [facility] [place] [address] [facility] [address]
--- OUTSIDE RECORDS SUMMARY | 2025-01-13 03:08 | External Medical Summary | Summary of Care ---
Author Name Unknown Organization [facility] Address [address] [place] [address] Phone [phone] Care Team Providers Care Senior Caregiver Name Role Phone Kaley Osullivan Primary Care Provider Reason for Visit * Reason Comments Outpatient Testing Encounter Details Date Type Department Care Team (Late st Contact Info) Description 12/16/2024 12:00 PM EST Laboratory Laboratory [address] [place] [id number] [place] [address] Epigastric pain; Hyperlipidemia, unspecified hyperlipidemia type; MyCode Research Other*[id number] Allergies Active Allergy Reactions Criticality Noted Date Comments Penicillins 06/28/2002 rash Sulfa Antibiotics 04/02/2003 Hives documented as of this encounter (statuses as of 12/16/2024) Medications Esomeprazole Magnesium 20 MG Oral Packet [...] as of this encounter (statuses as of 12/16/2024) Active Problems Problem Noted Date Diagnosed Date 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 Nephrolithiasis 08/07/2020 Uterine fibroid 07/27/2018 Adjustment disorder with anxious mood 07/27/2018 Dysmenorrhea 07/27/2018 GERD (gastroesophageal reflux disease) 4 Overweight (BMI 25.0-29.9) 09/19/2003 COMMON MIGRAINE WITHOUT MENTION OF INTRACTABLE M IGRAINE 05/21/2003 Tension headache 05/21/2003 Migraine aura, persistent Irritable bowel syndrome documented as of this encounter (statuses as of 12/16/2024) Resolved Problems Problem Noted Date Diagnosed Date Resolved Date 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 Irritable bowel syndrome 06/28/2002 Encounter for supervision of other normal 05/27/2002 Overview (03/29/2016): ICD-10 update of inactive term documented as of this encounter (statuses as of 12/16/2024) Immunizations Name Administration Dates Next Due COVID-19 [...] 12/31/2024 7:30 AM EST Office Visit Gastroenterology, [facility] [address] [place] [address] Jeanne Goldsmith CRNP [address] [place] [address] 03/05/2025 2:40 PM EDT Office Visit [address] [place] [phone] Taylor Gonzalez MD [address] [place] [address] [place] [address] Pending Results Name Type Priority Associated Diagnoses Date /Time BASIC METABOLIC PANEL Lab Routine Epigastric pain 12/16/2024 12:02 PM EST CBC WITH WBC DIFFERENTIAL AND ANEMIA REFLEX WORKUP Lab Routine Epigastric pain 12/16/2024 12:02 PM EST LIPID PANEL WITH DIRECT LDL IF TG IS HIGH Lab Routine Hyperlipidemia, unspecified hyperlipidemia type 12/16/2024 12:02 PM EST MYCODE SUBSEQUENT ADULT Lab Routine MyCode Research Other*[id number] 12/16/2024 12:02 PM EST ANEMIA CBC Lab Routine Epigastric pain 12/16/2024 12:02 PM EST DIFFERENTIAL, AUTOMATED Lab Routine Epigastric pain 12/16/2024 12:02 PM EST ANEMIA REFLEX CHEMISTRY HOLD Lab Routine Epigastric pain 12/16/2024 12:02 PM EST MYCODE SST1 Lab Routine MyCode Research Other*[id number] 12/16/2024 12:02 PM EST MYCODE SST2 Lab Routine MyCode Research Other*[id number] 12/16/2024 12:02 PM EST Scheduled Procedures Name Priority Associated Diagnoses Date/Ti [...] as of this encounter Visit Diagnoses Diagnosis Epigastric pain Abdominal pain, epigastric Hyperlipidemia, unspecified hyperlipidemia type MyCode Research Other*[id number] documented in this encounter Care Teams Senior Caregiver Relationship Specialty Start Date End Date Kaley Osullivan CRNP [address] [place] [address] [place] [address] PCP - General Nurse Practitioner 12/05/24 documented as of this encounter
--- OUTSIDE RECORDS SUMMARY | 2025-01-13 03:08 | External Medical Summary ---
Author Name Unknown Address Unknown Organization K01:LABORATORY [facility] [place] - [address] [place] [address] Laboratory Report Ordering Provider Test Date Status SANNA MIJARES 12/16/2024 12:02:03 Final Observation Date Value Abnormality Reference (Units ) Status MYCODE SPECIMEN-SST 12/16/2024 12:02:03 Freezing of extracted DNA, whole blood and/or serum. Final Performing Location LABORATORY [facility] - [address] [place] [address]
--- OUTSIDE RECORDS SUMMARY | 2025-01-13 03:08 | External Medical Summary ---
Author Name Unknown Address Unknown Organization K01:LABORATORY [facility] - [address] [place] [address] Laboratory Report Ordering Provider Test Date Status MIRELLA OLIVA 12/16/2024 12:02:03 Final Observation Date Value Abnormality Reference (Units ) Status SYNC LEUKOCYTES IN BLOOD BY AUTOMATED COUNT 12/16/2024 12:02:03 12.45 Above high normal 4.00-10.80 (K/uL) Final Segs 12/16/2024 12:02:03 55.0 40.0-75.0 (%) Final Lymphs % 12/16/2024 12:02:03 36.1 18.0-42.0 (%) Final Monos 12/16/2024 12:02:03 6.6 1.0-11.0 (%) Final Eosinophils 12/16/2024 12:02:03 1.4 0.0-6.0 (%) Final Basos 12/16/2024 12:02:03 0.5 0.0-2.0 (%) Final Immature Granulocyte, Percent 12/16/2024 12:02:03 0.4 0.0-2.0 (%) Final Absolute Segs 12/16/2024 12:02:03 6.84 1.80-7.70 (K/uL) Final Lymphs, absolute 12/16/2024 12:02:03 4.50 1.00-4.80 (K/ul) Final Monos, Abs 12/16/2024 12:02:03 0.82 0.00-1.10 (K/uL) Final Eos, Abs 12/16/2024 12:02:03 0.18 0.00-0.70 (K/uL) Final Basos, Abs 12/16/2024 12:02:03 0.06 0.00-0.20 (K/uL) Final Immature Granulocytes, Number 12/16/2024 12:02:03 0.05 0.00-0.20 (K/uL) Final Performing Location [facility] [place] [address] [facility] [address]
--- OUTSIDE RECORDS SUMMARY | 2025-01-13 03:08 | External Medical Summary ---
Author Name Unknown Address Unknown Organization K01:[facility] [place] [address] [place] [address] Laboratory Report Ordering Provider Test Date Status SANNA MIJARES 12/16/2024 12:02:03 Final Observation Date Value Abnormality Reference (Units ) Status MYCODE SPECIMEN-SST 12/16/2024 12:02:03 Freezing of extracted DNA, whole blood and/or serum. Final Performing Location LABORATORY [facility] - [address] [place] [address]
--- OUTSIDE RECORDS SUMMARY | 2025-01-13 03:08 | External Medical Summary | Summary of Care ---
Author Name Unknown Organization [facility] Address [address] [place] [address] Phone [phone] Care Team Providers Care Players [employer] Representative Name Role Phone Taylor Gonzalez MD Primary Care Prov ider Reason for Referral * Evaluate & Treat - Unlimited Visits (Within 10 days (routine)) - Pending Review Specialty Diagnoses / Procedures Referred By Josué tucker Referred To Contact Neurology Diagnoses Chronic nonintractable headache, unspecified headache type Jeanne Goldsmith CRNP [address] [place] [address] Phone: tel: fax: Referral ID Status Reason Start Date Expiration Date Visits Requested Visits Authorized [id number] Pending Review Specialty Services Required 12/31/[phone] Question Answer Referral Priority Within 10 days (routine) Where should this appointment be scheduled? [facility] This patient already has care established with Neurology. Do not place this order. Please use Ask A Doc to expedite care. Acknowledge Is this referral being placed for insurance purposes ONLY No, patient needs appointment [facility] NEUROLOGY REFERRAL QUESTIONS Headache Has the patient tried 1 abortive and 1 preventative medication? Yes Comments Chronic headaches- taking NSAIDs often. Has tried migraine meds Having nerve burn with pain mgmt at [facility] next week (second time) Reason for Visit * Reason Comments NEW PATIENT New pt ref by Capo Sam for epi pain and hx peptic ulcer. Pain for about a month. Had nausea, but has seemed to resolve. Occasional reflux. Takes Nexium. No dysphagia. Pt has to watch diet and avoid spicy foods. * Evaluate & Treat - Unlimited Visits (Within 30 days (routine)) - Pending Review Specialty Diagnoses / Procedures Referred By Josué tucker Referred To Contact Gastroenterology Diagnoses Epigastric pain Peptic ulcer Kaley Osullivan CRNP [address] [place] [address] [place] [address] Phone: tel: fax: Referral ID Status Reason Start Date Expiration Date Visits Requested Visits Authorized [id number] Pending Review Specialty Services Required [phone] Encounter Details Date Type Department Care Team (Latest Contact Info) Description 12/31/2024 7:30 AM EST Office Visit Gastroenterology, [facility] [address] [facility] [place] [address] Jeanne Goldsmith CRNP [address] [place] [address] Chronic nonintractable headache, unspecified headache type*; Gastroesophageal reflux disease with esophagitis without hemorrhage; PUD (peptic ulcer disease) Allergies Active Allergy Reactions Criticality Noted Date Comments Penicillins 06/28/2002 rash Sulfa Antibiotics 04/02/2003 Hives documented as of this encounter (statuses as of 12/31/2024) Medications Excedrin Extra Strength 250-250-65 MG Oral Tablet (Aspirin-Acetamin ophen-Caffeine) Take 1 Tablet by mouth every 6 hours as needed. Active Fluticasone-Salme terol 250-50 MCG/ACT Inhalation Aerosol Powder Breath Activated (Advair Diskus)Indication s:Wheeze Inhale by mouth 1 Puff in the morning AND 1 Puff before bedtime. 60 Each 5 022 Active Additional Information Patient not taking.Reported on 12/31/2024 Acetaminophen 325 MG Oral Tablet (Tylenol) Take 2 Tablets by mouth every 6 hours as needed for Pain, Mild. Alternating with Ibuprofen. 60 Tablet 023 Active Escitalopram Oxalate 20 MG Oral Tablet (Lexapro)Indicati ons:Adjustment disorder with anxious mood TAKE ONE TABLET BY MOUTH EVERY DAY 90 Tablet 1 024 Active Topiramate 50 MG Oral Tablet (topAMAX)Indicati ons:Tension headache TAKE ONE TABLET BY MOUTH EVERY DAY 30 Tablet 5 024 Active busPIRone HCl 15 MG Oral Tablet (Buspar)Indicatio ns:Adjustment disorder with anxious mood TAKE 1 TABLET BY MOUTH TWICE DAILY FOR ANXIETY 60 Tablet 5 024 Active Ibuprofen 600 MG Oral Tablet (Motrin)Indicatio ns:Fibroids, intramural TAKE ONE TABLET BY MOUTH EVERY EIGHT HOURS WITH FOOD. take during periods for 3 days 27 Tablet 024 Active Albuterol Sulfate HFA 108 (90 Base) MCG/ACT Inhalation Aerosol SolutionIndicatio ns:Mild intermittent asthma with exacerbation INHALE TWO PUFFS BY MOUTH FOUR TIMES DAILY 8.5 g 1 024 Active Levothyroxine Sodium 25 MCG Oral Tablet (Levoxyl)Indicati ons:Acquired hypothyroidism Take 1 Tablet by mouth daily first thing in the morning. (at least 30 min prior to breakfast or other meds) 90 Tablet 024 Active Sucralfate 1 GM Oral Tablet (Carafate)Indicat ions:Peptic ulcer Take 1 Tablet by mouth 4 times a day before meals and at bedtime. half an hour before meals and at bedtime 120 Tablet 5 024 Active Rosuvastatin Calcium 10 MG Oral Tablet (Crestor)Indicati ons:Hyperlipidemi a, unspecified hyperlipidemia type Take 1 Tablet by mouth in the morning. 90 Tablet 3 024 Active Cyclobenzaprine HCl 10 MG Oral Tablet (Flexeril)Indicat ions:Tension headache TAKE ONE TABLET BY MOUTH TWICE DAILY NEEDED for headache or muscle spasms 20 Tablet 025 Active Ondansetron HCl 4 MG Oral Tablet (Zofran)Indicatio ns:Nausea TAKE ONE TABLET BY MOUTH EVERY TWELVE HOURS NEEDED for nausea 30 Tablet 025 Active Esomeprazole Magnesium 20 MG Oral Packet (NexIUM) Take 40 mg by mouth daily before breakfast. 180 Each 3 025 Active Famotidine 20 MG Oral Tablet (Pepcid) Take 1 Tablet by mouth at bedtime. 30 Tablet 5 025 Active Esomeprazole Magnesium 20 MG Oral Packet Take 20 mg by mouth daily before breakfast. 2024 Discontinued documented as of this encounter (statuses as [...] mRNA, LNP-s, No Pre serve, 2-Dose Series ([employer]) 06/15/2021,05/25/2021 COVID-19, LNP-s, No Preserve , Shoaib-sucrose, [...] Sign Reading Time Taken Comments Blood Pressure 122/78 12/31/2024 7:37 AM EST Pulse - - Temperature 36.8 C (98.3 F) 12/31/2024 7:37 AM ES T Respiratory Rate - - Oxygen Saturation - - Inhaled Oxygen Concentration - - Weight 66.2 kg (146 lb) 12/31/2024 7:37 AM EST Height - - Body Mass Index 28.51 07/16/2024 3:52 PM EDT documented in this encounter Patient Instructions * Patient Instructions* Jeanne Goldsmith CRNP - 12/31/2024 7:38 AM EST Lifestyle and dietary modification: Selective limitation of dietary triggers - Common dietary triggers include carbonated beverages, spicy foods, fatty or fried foods, excess coffee, and peppermint Behavioral changes for nocturnal symptoms Avoid late meals - Patients with symptoms when recumbent should maintain a three-hour interval between a meal and lying down. Sleeping in the left side moves the puddle of gastric contents away from the gastroesophageal junction and may minimize reflux that occurs while supine Elevation of the head of the bed - Elevation of the head end of the bed may improve nocturnal reflux-like symptoms.Patients can use six- to eight-inch blocks under the legs at the head of the bed or a foam wedge under the mattress. Weight loss - We encourage weight loss for individuals with overweight or obesity and those who have recently gained weight. Evidence suggests that weight loss reduces reflux-like symptoms Smoking cessation - We encourage all individuals who smoke tobacco to quit. Tobacco smoking increases the risk of reflux-like symptoms by reducing lower esophageal sphincter pressure, triggering coughing, and diminishing salivation. Avoidance of alcohol-- which reduces lower esophageal sphincter pressure Avoidance of tight-fitting garments to prevent increases in intragastric pressure and the gastroesophageal pressure gradient (see "Pathophysiology of gastroesophageal reflux disease", section on 'Theantireflux barrier') documented in this encounter Progress Notes * Jeanne Goldsmith CRNP - 12/31/2024 7:30 AM EST Gastroenterology Outpatient Visit 12/31/2024 Referring physician:Kaley OBREGON PCP: Taylor Bloom MD Past medical history: GERD with PUD Irritable bowel syndrome- constipation CC: Epigastric pain HPI: 49-year-old female presents today to the Gastroenterology office as a new patient after being referred by her PCP due to concerns regarding possible peptic ulcer. Has a longstanding history of GERD/indigestion. Notes years back she was diagnosed with a peptic ulcer and was treated with ppi therapy--never had a formal EGD. Has been on Nexium daily for many years. Throughout the years her GERD symptoms waxed and waned. Noted specific triggers with spicy foods as well as stress. Recently though patient notes having several weeks of abdominal/epigastric discomfort. Pain became severe and she was evaluated at [facility] ED on 11/13/2024. CTAP showed possible PUD without perforation, abscess, or obstruction. Treated with a GI cocktail--symptomatic improvement. Maintained on Nexium. Did note to use NSAIDs frequently due to headaches. Followed up with PCP on 11/18--ongoing abdominal discomfort. Nexium was increased to 40 mg daily and Carafate was added. Since then symptoms seem to be improving that she continues to have reflux symptoms specifically inthe evening/dog or animal sitter hours about 2-3 times per week. She has on and off epigastric discomfort that is tender to palpation. Denies dysphagia. Does have some nausea but no vomiting. No known bloodin the stools. Of note, patient has dealt chronic headaches for a number of years. Notes that she saw Neurology back in 2019. She has tried multiple medications however the only thing that seems to work is NSAIDs. Notes that she takes Excedrin daily as well as ibuprofen daily. She has tried migraine medications and more recently she is having a nerve burn done at pain management at [facility]. Previous GI workup: Colonoscopy: Colonoscopy 01/2023--sigmoid diverticulosis. Otherwise unremarkable. Repeat due 01/2033 EGD: N/a CTAP: CTAP with IV contrast 11/13/2024 ([facility])--findings suspicious for mild antral and pyloric thickening. Consider peptic ulcer disease. No perforation. Moderate stool burden. Obstruction. Social history: Tobacco use: 1/2 pack per day ETOH use: None Drug use: None NSAID use: "a lot" --daily Excedrin and ibuprofen use Family Hx: No known family history of inflammatory bowel disease. MGM -- CRC with colostomy Mom-- "stomach issues" Current Outpatient Medications Medication Sig Dispense Refill Esomeprazole Magnesium 20 MG Oral Packet Take 20 mg by mouth daily before breakfast. Acetaminophen 325 MG Oral Tablet (Tylenol) Take 2 Tablets by mouth every 6 hours as needed for Pain, Mild. Alternating with Ibuprofen. 60 Tablet 0 Escitalopram Oxalate 20 MG Oral Tablet (Lexapro) TAKE ONE TABLET BY MOUTH EVERY DAY 90 Tablet 1 Topiramate 50 MG Oral Tablet (topAMAX) TAKE ONE TABLET BY MOUTH EVERY DAY 30 Tablet 5 busPIRone HCl 15 MG Oral Tablet (Buspar) TAKE 1 TABLET BY MOUTH TWICE DAILY FOR ANXIETY 60 Tablet 5 Albuterol Sulfate HFA 108 (90 Base) MCG/ACT Inhalation Aerosol Solution INHALE TWO PUFFS BY MOUTH FOUR TIMES DAILY 8.5 g 1 Levothyroxine Sodium 25 MCG Oral Tablet (Levoxyl) [...] TWICE DAILY NEEDED forheadache or muscle spasms 20 Tablet 0 Excedrin Extra Strength 250-250-65 MG Oral Tablet (Gplicgn-Ivaybssdishiz-Vvulkqqw) Take 1 Tablet bymouth every 6 hours as needed. Fluticasone-Salmeterol 250-50 MCG/ACT Inhalation Aerosol Powder Breath Activated (Advair Diskus) Inhale by mouth 1 Puff in the morning AND 1 Puff before bedtime. (Patient not taking: Reported on 12/31/2024) 60 Each 5 Ibuprofen 600 MG Oral Tablet (Motrin) TAKE ONE TABLET BY MOUTH EVERY EIGHT HOURS WITH FOOD. take during periods for 3 days 27 Tablet 0 Ondansetron HCl 4 MG Oral Tablet (Zofran) TAKE ONE TABLET BY MOUTH EVERY TWELVE HOURS NEEDED fornausea 30 Tablet 0 No current facility-administered medications for this visit. 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 Uterine fibroid 07/27/2018 Past Surgical History: Procedure Laterality Date COLONOSCOPY, DIAGNOSTIC (RECTUM) 02/14/2023 diverticulosis/recall 10 years/COLONOSCOPY FLEXIBLE PROXIMAL DIAGNOSTIC performed by Marc Evans MD at ENDOSCOPY [facility] DENTAL SURGERY PROCEDURE NEC wisdom teeth ECHO EXAM OF HEART (2D ECHO) 07/14/2022 normal LV size and function, EF 65-69%, grade 1 diastolic dysfunction., valves normal, LA normal, EXC BREAST LESION RADMARK Left 04/14/2021 EXCISION OF BREAST LESION RADIOLOGICAL MARKER performed by Shelby Mcneal MD at OR [facility] HYSTEROSCOPY W/BIOPSY AND/OR POLYPECTOMY W/WO D&C Bilateral 07/20/2023 HYSTEROSCOPY WITH BIOPSY AND/OR POLYPECTOMY WITH OR WITHOUT D&C performed by Desmond Woodard MD at OR [facility] LIGATE/CUT OVIDUCT(S) 2007 PELVIC EXAM UNDER ANESTHESIA, NOT LOCAL N/A 07/20/2023 PELVIC EXAMINATION UNDER ANESTHESIA performed by Desmond Woodard MD at OR [facility] US GUIDED BREAST BIOPSY LEFT Left 02/19/2021 fibroadenoma US GUIDED BREAST BIOPSY RIGHT Right 08/31/2018 breast tissue with fibrocystic changes and focal torres ductal chronic inflammation Social History Tobacco Use Smoking status: Every Day Current packs/day: 0.75 Average packs/day: 0.8 packs/day for 25.0 years (18.8 ttl pk-yrs) Types: Cigarettes Smokeless tobacco: Never Vaping Use Vaping status: Never Used Substance Use Topics Alcohol use: No Drug use: No Review of patient's allergies indicates: Allergen Reactions Penicillins rash Sulfa Antibiotics Hives Review of Systems: See HPI for pertinent positives. All others negative, other than those noted in HPI. Physical Exam: There were no vitals taken for this visit. GENERAL: Well developed and well nourished in no acute distress. SKIN: No rashes, ulcers, jaundice or spider angiomata. HEENT: Normocephalic, sclera clear, pharynx normal. NECK: Supple, no lymphadenopathy, no masses or thyroid enlargement. LUNGS: Clear to auscultation bilaterally, no respiratory distress or accessory muscles used. HEART: Regular rate & rhythm, no murmurs and no gallops. ABDOMEN: Normal bowel sounds, soft . Epigastric tenderness. no masses or hepatosplenomegaly. EXTREMITIES: No palmar erythema, no ankle edema, no skin discoloration, no clubbing, no cyanosis. NEURO: No lateralizing findings. Sensory/Motor grossly normal. Lab data/imaging study review: Reviewed via chart. Impression/Plan: This is a(n) 49 year old female who is being evaluated in the office for ongoing care/risk management for the below diagnoses. 1. Gastroesophageal reflux disease with esophagitis without hemorrhage 2. PUD (peptic ulcer disease) Patient with longstanding history of GERD, questionable peptic ulcer onto occurrences. No GI bleeding. Recommend dietary and lifestyle modifications: Avoid dietary triggers. Typical triggers include: carbonated beverages, spicy foods, fatty or friedfoods, excess coffee, and peppermint. Encouraged weight loss. Patient should try elevating the head of the bed some, refrain from lying flat after meals and avoid meals 2-3 hours before bedtime. Recommend smoking cessation and avoidance of alcohol. Peppermint can also make reflux symptoms worse. These substances reduce lower esophageal sphincter pressure. Discontinue/avoid all NSAID use Encouraged strict compliance with PPI therapy. Currently on Nexium 40 mg daily, continue. Medication should be taking 30 minutes prior to 1st meal of the day. Add famotidine 20 mg nightly Recommend EGD --rule out eosinophilic esophagitis, H pylori, and Barretts. If patient starts to experience dysphagia consider esophageal manometry. 3. Chronic nonintractable headache, unspecified headache type (Primary) - ADULT NEUROLOGY REFERRAL OP The patient agrees to the above plan and will call with additional questions or concerns. ER with all emergencies advised. Check-out note: EGD in 6-8 weeks I spent a total of Greater than 55 mins (exact time 60 mins) on the date of service in preparation,delivery, and documentation of the care provided to Karla Jarquin excluding any time spent in theperformance of separately billed services or time spent by another provider/QHP. MINDI So [facility] Gastroenterology, [facility] This chart was completed in part utilizing [employer] Speech Voice Recognition Software. Grammatical errors, random word insertions, prounoun errors, and incomplete sentences are an occasional consequence of this system due to software limitations, ambient noise, and hardware issues. Any formal questions or concerns about the content, text, or information contained within the body of this dictation should be directly addressed to the provider for clarification. documented in this encounter Nursing Notes * Sailaja Riddle CMA - 12/31/2024 7:37 AM EST Chief Complaint Patient presents with NEW PATIENT New pt ref by Kaley Sam for epi pain and hx peptic ulcer. Pain for about a month. Had nausea, but has seemed to resolve. Occasional reflux. Takes Nexium. No dysphagia. Pt has to watch dietand avoid spicy foods. documented in this encounter Plan of Treatment Upcoming Encounters Date Type Department Care Team (Latest Contact Info) Description 02/21/2025 8:30 AM EDT Hospital Encounter ENDO [facility], Endoscopy Room [facility] [address] [place] [id number] Selina Loredo MD [address] [place] [address] 02/21/2025 8:30 AM EDT - 02/21/2025 9:00 AM EDT Surgery ENDO [facility], Endoscopy Room [facility] [address] [place] [id number] Selina Loredo MD [address] [place] [address] ESOPHAGOGASTRODUODENOSCOPY (EGD), FLEXIBLE, TRANSORAL, DIAGNOSTIC 03/05/2025 2:40 PM EDT Office Visit [address] [place] [phone] Taylor Gonzalez MD [address] [place] [address] [place] [address] 04/17/2025 8:30 AM EDT Office Visit Gastroenterology , [facility] [address] [place] [address] Jeanne Goldsmith CRNP [address] [place] [address] Scheduled Orders Name Type Priority Associated Diagnoses Orde r Schedule EGD, FLEXIBLE, DIAGNOSTIC Procedures Routine Gastroesophageal reflux disease with esophagitis without hemorrhage PUD (peptic ulcer disease) Ordered: 12/31/2024 Scheduled Procedures Name Priority Associated Diagnoses Date/Ti me ESOPHAGOGASTRODUODENOSCOPY ( EGD), FLEXIBLE, TRANSORAL, DIAGNOSTIC Gastroesophageal reflux disease with esophagitis without hemorrhage PUD (peptic ulcer disease) 02/21/2025 8:30 AM EDT COLONOSCOPY FLEXIBLE PROXIMA L DIAGNOSTIC Recall Screen for colon cancer Scheduled Referrals Name Type Priority Associated Diagnoses Orde r Schedule ADULT NEUROLOGY REFERRAL OP Referral Within 10 days (routine) Chronic nonintractable headache, unspecified headache type Ordered: 12/31/2024 Health Maintenance Due Date Last Done Comments [...] Tdap) 07/27/2028 07/27/2018 Lipid Panel 12/16/2029 12/16/2024, 12/2 , 07/27/2018 Colonoscopy 02/14/2033 02/14/2023, 02/14/2023 Colorectal Cancer [...] as of this encounter Visit Diagnoses Diagnosis Chronic nonintractable headache, unspecified headache type- Primary Gastroesophageal reflux disease with esophagitis without hemorrhage PUD (peptic ulcer disease) Peptic ulcer, unspecified site, unspecified as acute or chronic, without mention of hemorrhage, perforation, or obstruction Gastroesophageal reflux disease with esophagitis without hemorrhage PUD (peptic ulcer disease) Peptic ulcer, unspecified site, unspecified as acute or chronic, without mention of hemorrhage, perforation, or obstruction documented in this encounter Care Teams Players Club Representative Relationship Specialty Start Date End Date Taylor Gonzalez MD [address] [place] [address] [place] [address] PCP - General Family Medicine 12/19/24 documented as of this encounter
--- OUTSIDE RECORDS SUMMARY | 2025-01-13 03:08 | External Medical Summary | Summary of Care ---
Author Name Unknown Organization [facility] Address [address] [place] [address] Phone [phone] Care Team Providers Care Electrical Continuity Tester Name Role Phone Taylor Gonzalez MD Primary Care Prov ider Reason for Visit * Reason Onset Date Comments Referral 01/03/2025 Encounter Details Date Type Department Care Team (Late st Contact Info) Description 01/03/2025 Telephone Gastroenterology, [facility] [address] [place] [address] Specified, Zz No Resource [address] [place] [address] Referral Allergies Active Allergy Reactions [...] mRNA, LNP-s, No Pre serve, 2-Dose Series ([employer]) 06/15/2021,05/25/2021 COVID-19, LNP-s, No Preserve , Shoaib-sucrose, [...] Selina Loredo MD [address] [place] [id number] 02/21/2025 8:30 AM EDT - 02/21/2025 9:00 AM EDT Surgery ENDO [facility], Endoscopy Room [facility] [address] [place] [phone] Selina Loredo MD [address] [place] [address] ESOPHAGOGASTRODUODENOSCOPY (EGD), FLEXIBLE, TRANSORAL, DIAGNOSTIC 03/05/2025 2:40 PM EDT Office Visit [address] [place] [phone] Taylor Gonzalez MD [address] [place] [address] [place] [address] 04/17/2025 8:30 AM EDT Office Visit Gastroenterology , [facility] [address] [place] [address] Jeanne Goldsmith CRNP [address] [facility] [place] [address] Scheduled Procedures Name Priority Associated Diagnoses Date/Ti [...] filedocumented as of this encounter Care Teams Electrical Continuity Tester Relationship Specialty Start Date End Date Taylor Gonzalez MD [address] [place] [address] [place] [phone] PCP - General Family Medicine 12/19/24 documented as of this encounter
--- OUTSIDE RECORDS SUMMARY | 2025-01-13 03:08 | External Medical Summary | Summary of Care ---
Author Name Unknown Organization [facility] Address [address] [place] [address] Phone [phone] Care Team Providers Care Basket Patcher Name Role Phone Taylor Gonzalez MD Primary Care Prov ider Reason for Referral * Evaluate & Treat - Unlimited Visits (Within 10 days (routine)) - Pending Review Specialty Diagnoses / Procedures Referred By Josué tucker Referred To Contact Neurology Diagnoses Chronic nonintractable headache, unspecified headache type Jeanne Goldsmith CRNP [address] [place] [address] Phone: tel: fax: Referral ID Status Reason Start Date Expiration Date Visits Requested Visits Authorized [id number] Pending Review Specialty Services Required 12/31/[phone] Question Answer Referral Priority Within 10 days (routine) Where should this appointment be scheduled? [facility] This patient already has care established with Neurology. Do not place this order. Please use Ask A Doc to expedite care. Acknowledge Is this referral being placed for insurance purposes ONLY No, patient needs appointment [facility] NEUROLOGY REFERRAL QUESTIONS Headache Has the patient tried 1 abortive and 1 preventative medication? Yes Comments Chronic headaches- taking NSAIDs often. Has tried migraine meds Having nerve burn with pain mgmt at [facility] next week (second time) Reason for Visit [...] Epigastric pain Peptic ulcer Kaley Osullivan CRNP [address] [place] [address] [place] [address] Phone: tel: fax: Referral ID Status Reason Start Date Expiration Date Visits Requested Visits Authorized [id number] Pending Review Specialty Services Required [phone] Encounter Details Date Type Department Care Team (Latest Contact Info) Description 12/31/2024 7:30 AM EST Office Visit Gastroenterology, [facility] [address] [facility] [place] [address] Jeanne Goldsmith CRNP [address] [place] [address] Chronic nonintractable headache, unspecified headache type*; Gastroesophageal [...] mRNA, LNP-s, No Pre serve, 2-Dose Series ([employer]) 06/15/2021,05/25/2021 COVID-19, LNP-s, No Preserve , Shoaib-sucrose, [...] became severe and she was evaluated at [facility] ED on 11/13/2024. 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 She [...] nerve burn done at pain management at [facility]. Previous GI workup: Colonoscopy: Colonoscopy 01/2023--sigmoid diverticulosis. Otherwise unremarkable. Repeat due 01/2033 EGD: N/a CTAP: CTAP with IV contrast 11/13/2024 ([facility])--findings suspicious for mild antral and pyloric thickening. [...] Excedrin Extra Strength 250-250-65 MG Oral Tablet (Vzskoac-Shqiaciqazajx-Sxsjyqes) Take 1 Tablet bymouth every 6 hours [...] performed by Marc Evans MD at ENDOSCOPY [facility] DENTAL SURGERY PROCEDURE NEC wisdom teeth ECHO EXAM OF HEART (2D ECHO) 07/14/2022 normal LV size and function, EF 65-69%, grade 1 diastolic dysfunction., valves normal, LA normal, EXC BREAST LESION RADMARK Left 04/14/2021 EXCISION OF BREAST LESION RADIOLOGICAL MARKER performed by Shelby Mcneal MD at OR [facility] HYSTEROSCOPY W/BIOPSY AND/OR POLYPECTOMY W/WO D&C Bilateral 07/20/2023 HYSTEROSCOPY WITH BIOPSY AND/OR POLYPECTOMY WITH OR WITHOUT D&C performed by Desmond Woodard MD at OR [facility] LIGATE/CUT OVIDUCT(S) 2007 PELVIC EXAM UNDER ANESTHESIA, NOT LOCAL N/A 07/20/2023 PELVIC EXAMINATION UNDER ANESTHESIA performed by Desmond Woodard MD at OR [facility] US GUIDED BREAST BIOPSY LEFT Left [...] time spent by another provider/QHP. MINDI [facility] Gastroenterology, [facility] This chart was completed in part utilizing [employer] Speech Voice Recognition Software. Grammatical errors, random [...] with NEW PATIENT New pt ref by Kaely Sam for epi pain and hx peptic ulcer. Pain for about a month. Had nausea, but has seemed to resolve. Occasional reflux. Takes Nexium. No dysphagia. Pt has to watch dietand avoid spicy foods. documented in this encounter Plan of Treatment Upcoming Encounters Date Type Department Care Team (Latest Contact Info) Description 02/21/2025 8:30 AM EDT Hospital Encounter ENDO [facility], Endoscopy Room [facility] [address] [place] [phone] Selina Loredo MD [address] [place] [address] 02/21/2025 8:30 AM EDT - 02/21/2025 9:00 AM EDT Surgery ENDO [facility], Endoscopy Room [facility] [address] [place] [phone] Selina Loredo MD [address] [place] [address] ESOPHAGOGASTRODUODENOSCOPY (EGD), FLEXIBLE, TRANSORAL, DIAGNOSTIC 03/05/2025 2:40 PM EDT Office Visit [address] [place] [phone] Taylor Gonzalez MD [address] [place] [address] [place] [address] 04/17/2025 8:30 AM EDT Office Visit Gastroenterology , [facility] [address] [place] [address] Jeanne Goldsmith CRNP [address] [place] [address] Scheduled Orders Name Type Priority Associated Diagnoses [...] obstruction documented in this encounter Care Teams Basket Patcher Relationship Specialty Start Date End Date Taylor Gonzalez MD [address] [place] [address] [place] [address] PCP - General Family Medicine 12/19/24 documented as of this encounter
--- OUTSIDE RECORDS SUMMARY | 2025-01-13 03:08 | External Medical Summary | Summary of Care ---
Author Name Unknown Organization [facility] Address [address] [place] [address] Phone [phone] Care Team Providers Care Satellite Manager Name Role Phone Abdulkadir Marcos MD Primary Care Prov ider Reason for Visit * Reason Comments eRx-Medication Refill Encounter Details Date Type Department Care Team (Late st Contact Info) Description 12/18/2024 Refill Family Medicine [address] [phone] Abdulkadir Marcos MD [address] [place] [address] [place] [address] Tension headache; Nausea Allergies Active Allergy Reactions Criticality Noted Date Comments Penicillins 06/28/2002 rash Sulfa Antibiotics 04/02/2003 Hives documented as of this encounter (statuses as of 12/20/2024) Medications Esomeprazole Magnesium 20 MG Oral Packet [...] before bedtime. 60 Each 5 022 Active Acetaminophen 325 MG Oral Tablet (Tylenol) [...] NEEDED for nausea 30 Tablet 025 Active Cyclobenzaprine HCl 10 MG Oral Tablet (Flexeril)Indicat ions:Tension headache TAKE ONE TABLET BY MOUTH TWICE DAILY NEEDED for headache or muscle spasms 20 Tablet 024 2024 Discontinued Ondansetron HCl 4 MG Oral Tablet (Zofran)Indicatio ns:Nausea TAKE ONE TABLET BY MOUTH EVERY TWELVE HOURS NEEDED for nausea 30 Tablet 024 2024 Discontinued documented as of this encounter (statuses as of 12/20/2024) Active Problems Problem Noted Date Diagnosed Date 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 Nephrolithiasis 08/07/2020 Uterine fibroid 07/27/2018 Adjustment disorder with anxious mood 07/27/2018 Dysmenorrhea 07/27/2018 GERD (gastroesophageal reflux disease) 4 Overweight (BMI 25.0-29.9) 09/19/2003 COMMON MIGRAINE WITHOUT MENTION OF INTRACTABLE M IGRAINE 05/21/2003 Tension headache 05/21/2003 Migraine aura, persistent Irritable bowel syndrome documented as of this encounter (statuses as of 12/20/2024) Resolved Problems Problem Noted Date Diagnosed Date Resolved Date 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 Irritable bowel syndrome 06/28/2002 Encounter for supervision of other normal 05/27/2002 Overview (03/29/2016): ICD-10 update of inactive term documented as of this encounter (statuses as of 12/20/2024) Immunizations Name Administration Dates Next Due COVID-19 mRNA, LNP-s, No Pre serve, 2-Dose Series ([employer]) 06/15/2021,05/25/2021 COVID-19, LNP-s, No Preserve , Shoaib-sucrose, [...] encounter Miscellaneous Notes * Telephone Encounter - Abdulkadir Marcos MD - 12/20/2024 12:14 PM ESTSigned Prescriptions: Disp Refills Cyclobenzaprine HCl 10 MG Oral Tablet (Fle*20 Tab*0 Sig: TAKE ONE TABLET BY MOUTH TWICE DAILY NEEDED for headache or muscle spasms Authorizing Provider: ABDULKADIR MARCOS Ondansetron HCl 4 MG Oral Tablet (Zofran) 30 Tab*0 Sig: TAKE ONE TABLET BY MOUTH EVERY TWELVE HOURS NEEDED for nausea Authorizing Prov ider: ABDULKADIR MARCOS * Telephone Encounter - [employer] - 12/20/2024 11:52 AM EST Pending Prescriptions: Disp Refills Cyclobenzaprine HCl 10 MG Oral Tablet [Pha*20 Tab*0 Sig: TAKE ONE TABLET BY MOUTH TWICE DAILY NEEDED for headache or muscle spasms Ondansetron HCl 4 MG Oral Tablet [Pharmacy*30 Tab*0 Sig: TAKE ONE TABLET BY MOUTH EVERY TWELVE HOURS NEEDED for nausea -- * Telephone Encounter - Virginia Ramirez CMA - 12/20/2024 7:16 AM ESTPending Prescriptions: Disp Refills Cyclobenzaprine HCl 10 MG Oral Tablet [Pha*20 Tab*0 Sig: TAKE ONE TABLET BY MOUTH TWICE DAILY NEEDED for headache or muscle spasms Ondansetron HCl 4 MG Oral Tablet [Pharmacy*30 Tab*0 Sig: TAKE ONE TABLET BY MOUTH EVERY TWELVE HOURS NEEDED for nausea -- * Telephone Encounter - Virginia Ramirez CMA - 12/20/2024 7:16 AM EST Pending Prescriptions: Disp Refills Cyclobenzaprine HCl 10 MG Oral Tablet (Fl*20 Tab*0 Sig: TAKE ONE TABLET BY MOUTH TWICE DAILY NEEDED for headache or muscle spasms Ondansetron HCl 4 MG Oral Tablet (Zofran)*30 Tab*0 Sig: TAKE ONE TABLET BY MOUTH EVERY TWELVE HOURS NEEDED for nausea Last Visit: 11/18/2024 (in office), Visit date not found (telemedicine) Next Visit: 03/05/2025 Last date the medication was ordered: 07/16/2024,10/10/2024 Patient Active Problem List Diagnosis COMMON MIGRAINE WITHOUT MENTION OF INTRACTABLE MIGRAINE Tension headache Overweight (BMI 25.0-29.9) GERD (gastroesophageal reflux disease) Uterine fibroid Adjustment disorder with anxious mood Dysmenorrhea Migraine aura, persistent Irritable bowel syndrome Nephrolithiasis Fibroadenoma of left breast Labs: Lab Results Component Value Date/Time CREATININE - [facility] 0.9 12/16/2024 12:02 PM CREATININE - [facility] 0.9 07/27/2018 02:53 PM Lab Results Component Value Date/Time POTASSIUM - [facility] 3.7 12/16/2024 12:02 PM POTASSIUM - [facility] 4.4 07/27/2018 02:53 PM Lab Results Component Value Date/Time TSH - [facility] 3.85 11/15/2024 12:44 PM TSH - [facility] 1.40 07/27/2018 02:53 PM Lab Results Component Value Date/Time LDL CHOLESTEROL (CALCULATED) - [facility] 185 (H) 11/15/2024 12:44 PM LDL CHOLESTEROL (CALCULATED) - [facility] 126 07/27/2018 02:53 PM LDL CHOLESTEROL (DIRECT MEASURE) - [facility] 73 12/16/2024 12:02 PM LDL CHOLESTEROL (DIRECT MEASURE) - [facility] NOT APPLICABLE 07/27/2018 02:53 PM No results found for: "ALT" Hemoglobin AIC Results: No results found for: "HEMOGLOBIN A1C" * Telephone Encounter - Kaley Osullivan CRNP - 12/19/2024 4:43 PM EST Pending Prescriptions: Disp Refills Cyclobenzaprine HCl 10 MG Oral Tablet [Pha*20 Tab*0 Sig: TAKE ONE TABLET BY MOUTH TWICE DAILY NEEDED for headache or muscle spasms Ondansetron HCl 4 MG Oral Tablet [Pharmacy*30 Tab*0 Sig: TAKE ONE TABLET BY MOUTH EVERY TWELVE HOURS NEEDED for nausea -- * Telephone Encounter - Kaley Osullivan CRNP - 12/19/2024 4:38 PM EST I have never prescribed these to patient before and most recently saw her for acute and got listed by her PCP by GENNA torres. It looks like Dr. Bloom filled these most recently. Thanks! * Telephone Encounter - Emelina Carranza [facility] - 12/18/2024 3:20 PM ESTPending Prescriptions: Disp Refills Cyclobenzaprine HCl 10 MG Oral Tablet [Pha*20 Tab*0 Sig: TAKE ONE TABLET BY MOUTH TWICE DAILY NEEDED for headache or muscle spasms Ondansetron HCl 4 MG Oral Tablet [Pharmacy*30 Tab*0 Sig: TAKE ONE TABLET BY MOUTH EVERY TWELVE HOURS NEEDED for nausea -- * Telephone Encounter - Emelina Carranza [facility] - 12/18/2024 3:20 PM EST Cyclobenzaprine: [facility] is currently not authorized to approve refills for the pended medication(s) per refill protocol. Please approve if appropriate. Ondansetron: Unable to authorize medication refills for pended medication(s) at this time. Part of the protocol criteria used for refill authorization was not satisfied. Patient concurrently taking Escitalopram which may increase risk of QT prolongation when given with Ondansetron. Please approve if appropriate. Thank you, Emelina Carranza, PharmD Clinical Pharmacist [facility] ([facility]) [phone] 12/18/2024, 3:20 PM * Telephone Encounter - Emelina Carranza [facility] - 12/18/2024 3:19 PM EST Pending Prescriptions: Disp Refills Cyclobenzaprine HCl 10 MG Oral Tablet (Fl*20 Tab*0 Sig: TAKE ONE TABLET BY MOUTH TWICE DAILY NEEDED for headache or muscle spasms Ondansetron HCl 4 MG Oral Tablet (Zofran)*30 Tab*0 Sig: TAKE ONE TABLET BY MOUTH EVERY TWELVE HOURS NEEDED for nausea Last Visit: 11/18/2024 (in office), Visit date not found (telemedicine) Next Visit: 03/05/2025 If no future appointments scheduled, and last appointment is greater than a year ago, please schedule patient for a follow-up appointment Last date the medication was ordered: 07/16, 10/10 Pharmacy: [id number] [facility] Is this request for a controlled substance? No Urine Drug Screen:No results found for this or any previous visit. Patient Phone Numbers Labs: Lab Results Component Value Date/Time CREAT 0.9 12/16/2024 12:02 PM CREAT 0.9 07/27/2018 02:53 PM POTASSIUM 3.7 12/16/2024 12:02 PM POTASSIUM 4.4 07/27/2018 02:53 PM TSH 3.85 11/15/2024 12:44 PM TSH 1.40 07/27/2018 02:53 PM LDL 73 12/16/2024 12:02 PM LDL 185 (H) 11/15/2024 12:44 PM LDL 126 07/27/2018 02:53 PM LDL NOT APPLICABLE 07/27/2018 02:53 PM documented in this encounter Plan of Treatment Upcoming Encounters Date Type Department Care Team (Late st Contact Info) Description 12/31/2024 7:30 AM EST Office Visit Gastroenterology, [facility] [address] [place] [address] Jeanne Goldsmith CRNP [address] [place] [address] 03/05/2025 2:40 PM EDT Office Visit Family Medicine [address] [place] [phone] Abdulkadir Marcos MD [address] [place] [address] [place] [address] Scheduled Procedures Name Priority Associated Diagnoses Date/Ti [...] as of this encounter Visit Diagnoses Diagnosis Tension headache Nausea Nausea alone documented in this encounter Care Teams Satellite Manager Relationship Specialty Start Date End Date Abdulkadir Marcos MD [address] [place] [address] [place] [address] PCP - General Family Medicine 12/19/24 documented as of this encounter
--- OUTSIDE RECORDS SUMMARY | 2025-01-13 03:09 | External Medical Summary | Summary of Care ---
Author Name Unknown Organization [facility] Address [address] [place] [address] Phone [phone] Care Team Providers Care Aed Trainer Name Role Phone Taylor Gonzalez MD Primary Care Prov ider Reason for Referral * Evaluate & Treat - Unlimited Visits (Within 30 days (routine)) - Pending Review Specialty Diagnoses / Procedures Referred By Josué tucker Referred To Contact Gastroenterology Diagnoses Epigastric pain Peptic ulcer Kaley Osullivan CRNP [address] [place] [address] [place] [address] Phone: tel: fax: Referral ID Status Reason Start Date Expiration Date Visits Requested Visits Authorized [id number] Pending Review Specialty Services Required [phone] Question Answer Referral Priority Within 30 days (routine) Where should this appointment be scheduled? [facility] For what condition is the patient being referred? All Gastro Conditions Reason for Visit * Reason Comments Emergency Department Follow-Up [facility] 10/27 07/20 for abdominal pain, was feeling okay for a couple of days but it's starting to return. Encounter Details Date Type Department Care Team (Late st Contact Info) Description 11/18/2024 10:00 AM EST Office Visit Family Medicine [address] [place] [phone] Kaley Osullivan CRNP [address] [place] [address] [place] [address] Epigastric pain*; Peptic ulcer Allergies Active Allergy Reactions Criticality Noted Date Comments Penicillins 06/28/2002 rash Sulfa Antibiotics 04/02/2003 Hives documented as of this encounter (statuses as of 11/18/2024) Medications Esomeprazole Magnesium 20 MG Oral Packet [...] bedtime 120 Tablet 5 11/18/20 24 Active Nystatin 815161 UNIT/ML Mouth/Throat SuspensionIndicati ons:Thrush Swish and swallow 5 mL in the morning and 5 mL at noon and 5 mL in the evening and 5 mL before bedtime. For thrush.. 240 mL 1 09/25/20 24 024 Discontin ued(Medic ation List Clean Up) predniSONE 10 MG Oral Tablet (Deltasone)Indicat ions:Neck pain Take 5 tabs for 2 days, 4 tabs for 2 days, 3 tabs for 2 days, 2 tabs for 2 days 1 tab for 2 days 30 Tablet 10/09/20 24 024 Discontin ued(Medic ation List Clean Up) documented as of this encounter (statuses as of 11/18/2024) Active Problems Problem Noted Date Diagnosed Date 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 Nephrolithiasis 08/07/2020 Uterine fibroid 07/27/2018 Adjustment disorder with anxious mood 07/27/2018 Dysmenorrhea 07/27/2018 GERD (gastroesophageal reflux disease) 4 Overweight (BMI 25.0-29.9) 09/19/2003 COMMON MIGRAINE WITHOUT MENTION OF INTRACTABLE M IGRAINE 05/21/2003 Tension headache 05/21/2003 Migraine aura, persistent Irritable bowel syndrome documented as of this encounter (statuses as of 11/18/2024) Resolved Problems Problem Noted Date Diagnosed Date Resolved Date 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 Irritable bowel syndrome 06/28/2002 Encounter for supervision of other normal 05/27/2002 Overview (03/29/2016): ICD-10 update of inactive term documented as of this encounter (statuses as of 11/18/2024) Immunizations Name Administration Dates Next Due COVID-19 [...] Sign Reading Time Taken Comments Blood Pressure 118/78 11/18/2024 10:15 AM EST Pulse 80 11/18/2024 10:15 AM EST Temperature - - Respiratory Rate - - Oxygen Saturation 98% 11/18/2024 10:15 AM EST Inhaled Oxygen Concentration - - Weight 64 kg (141 lb) 11/18/2024 10:15 AM EST Height - - Body Mass Index 27.54 07/16/2024 3:52 PM EDT documented in this encounter Plan of Treatment Upcoming Encounters Date Type Department Care Team (Late st Contact Info) Description 12/31/2024 7:30 AM EST Office Visit Gastroenterology, [facility] [address] [place] [address] Jeanne Goldsmith CRNP [address] [place] [address] 03/05/2025 2:40 PM EDT Office Visit Family Medicine [address] [place] [phone] Taylor Gonzalez MD [address] [place] [address] [place] [address] Scheduled Orders Name Type Priority Associated Diagnoses Orde r Schedule BASIC METABOLIC PANEL Lab Routine Epigastric pain Expected: 12/19/2024 (Approximate), Expires: 11/18/2025 CBC WITH WBC DIFFERENTIAL AND ANEMIA REFLEX WORKUP Lab Routine Epigastric pain Expected: 12/19/2024 (Approximate), Expires: 11/18/2025 Scheduled Procedures Name Priority Associated Diagnoses Date/Ti me COLONOSCOPY FLEXIBLE PROXIMAL DIAGNOSTIC Recall Screen for colon cancer Scheduled Referrals Name Type Priority Associated Diagnoses Order Schedule ADULT GASTROENTEROLOGY REFERRAL OP Referral Within 30 days (routine) Epigastric pain Peptic ulcer Ordered: 11/18/2024 Health Maintenance Due Date Last Done Comments [...] of this encounter Visit Diagnoses Diagnosis Epigastric pain- Primary Abdominal pain, epigastric Peptic ulcer Peptic ulcer, unspecified site, unspecified as acute or chronic, without mention of hemorrhage, perforation, or obstruction documented in this encounter Care Teams Aed Trainer Relationship Specialty Start Date End Date Taylor Gonzalez MD [address] [place] [address] [place] [phone] PCP - General Family Medicine 07/27/18 documented as of this encounter
--- OUTSIDE RECORDS SUMMARY | 2025-01-13 03:09 | External Medical Summary ---
Author Name Unknown Address Unknown Organization K01:[facility] - [address] [place] [address] Laboratory Report Ordering Provider Test Date Status SANNA MIJARES 11/15/2024 12:44:44 Final Observation Date Value Abnormality Reference (Units ) Status MYCODE SPECIMEN-SST 11/15/2024 12:44:44 Freezing of extracted DNA, whole blood and/or serum. Final Performing Location [facility] - [address] [place] [address]
--- OUTSIDE RECORDS SUMMARY | 2025-01-13 03:09 | External Medical Summary | Summary of Care ---
Author Name Unknown Organization [facility] Address [address] [place] [address] Phone [phone] Care Team Providers Care Molder Name Role Phone Taylor Gonzalez MD Primary Care Prov ider Encounter Details Date Type Department Care Team (Late st Contact Info) Description 11/14/2024 Orders Only PATIENT PORTAL DO NOT DELETE THIS DEPT USED BY [place] [id number] Allergies Active Allergy Reactions Criticality Noted Date Comments Penicillins 06/28/2002 rash Sulfa Antibiotics 04/02/2003 Hives documented as of this encounter (statuses as of 11/14/2024) Medications Esomeprazole Magnesium 20 MG Oral Packet [...] for nausea 30 Tablet 10/10/20 24 Active predniSONE 10 MG Oral Tablet (Deltasone)Indicat ions:Neck pain Take 5 tabs for 2 days, 4 tabs for 2 days, 3 tabs for 2 days, 2 tabs for 2 days 1 tab for 2 days 30 Tablet 10/09/20 24 Active Albuterol Sulfate HFA 108 (90 [...] other meds) 90 Tablet 11/11/20 24 Active documented as of this encounter (statuses as of 11/14/2024) Active Problems Problem Noted Date Diagnosed Date 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 Nephrolithiasis 08/07/2020 Uterine fibroid 07/27/2018 Adjustment disorder with anxious mood 07/27/2018 Dysmenorrhea 07/27/2018 GERD (gastroesophageal reflux disease) 4 Overweight (BMI 25.0-29.9) 09/19/2003 COMMON MIGRAINE WITHOUT MENTION OF INTRACTABLE M IGRAINE 05/21/2003 Tension headache 05/21/2003 Migraine aura, persistent Irritable bowel syndrome documented as of this encounter (statuses as of 11/14/2024) Resolved Problems Problem Noted Date Diagnosed Date Resolved Date 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 Irritable bowel syndrome 06/28/2002 Encounter for supervision of other normal 05/27/2002 Overview (03/29/2016): ICD-10 update of inactive term documented as of this encounter (statuses as of 11/14/2024) Immunizations Name Administration Dates Next Due COVID-19 mRNA, LNP-s, No Pre serve, 2-Dose Series ([employer]) 06/15/2021,05/25/2021 COVID-19, LNP-s, No Preserve , Shoaib-sucrose, [...] Care Team (Late st Contact Info) Description 03/05/2025 2:40 PM EDT Office Visit Family Medicine [address] [place] [phone] Taylor Gonzalez MD [address] [place] [address] [place] [phone] Scheduled Procedures Name Priority Associated Diagnoses Date/Ti me COLONOSCOPY FLEXIBLE PROXIMAL DIAGNOSTIC Recall Screen for colon cancer Health Maintenance Due Date Last Done Comments Hepatitis B Vaccine (1 of 3 - 19+ 3-dose series) 1996 HPV/Co-Test 2007 Cologuard 2022 Fecal Occult Blood Test 2022 Sigmoidoscopy 2022 Depression Screening 05/19/2022 05/19/2021 Lipid Panel 07/27/2023 07/27/2018 Cervical Cancer Screening 01/30/2024 Pap Smear 01/30/2024 01/29/2021, 09/28, 09/19/2003, Additional history exists TSH 05/29/2024 05/29/2023, 03/27, 07/27/2018, Additional history exists COVID-19 Vaccine ( season) 2024 03/22/2022, 06/15/2021, 05/25/2021 Influenza Vaccine (FLU shot) (#1) 2024 10/02/2002 Mammogram 07/08/2025 07/08/2024, 06/0 11/2021, 02/08/2021, Additional history exists Diabetes Screening 09/27/2025 09/27/2022, 0 03/25/2021, 07/27/2018 DTap/Tdap Vaccines (2 - Td or Tdap) 07/27/2028 07/27/2018 Colonoscopy 02/14/2033 02/14/2023, 02/14/2023 Colorectal Cancer [...] filedocumented as of this encounter Care Teams Molder Relationship Specialty Start Date End Date Taylro Gonzalez MD [address] [place] [address] [place] [phone] PCP - General Family Medicine 07/27/18 documented as of this encounter
--- OUTSIDE RECORDS SUMMARY | 2025-01-13 03:09 | External Medical Summary | Summary of Care ---
Author Name Unknown Organization [facility] Address [address] [facility] [address] Phone [phone] Care Team Providers Care Spindle Frame Carver Name Role Phone Taylor Gonzalez MD Primary Care Prov ider Reason for Visit * Reason Onset Date Comments Test Results Lab 11/18/2024 Encounter Details Date Type Department Care Team (Late st Contact Info) Description 11/18/2024 Telephone Centralized Clinical Pharmacy Services, Fang Arteaga [address] [place] [address] [place] [phone] [facility] [address] [place] [address] Test Results Lab Allergies Active Allergy Reactions [...] bedtime 120 Tablet 5 11/18/20 24 Active documented as of this encounter (statuses as of 11/18/2024) Active Problems Problem Noted Date Diagnosed Date 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 Thanks, Angélica Hollins, PharmD Clinical Pharmacist [facility] Pharmacy Services ([facility]) [phone] 11/18/2024, 4:17 PM documented in this encounter Plan of Treatment Upcoming Encounters Date Type Department Care Team (Late st Contact Info) Description 12/31/2024 7:30 AM EST Office Visit Gastroenterology, [facility] [address] [place] [address] Jeanne Goldsmith CRNP [address] [place] [address] 03/05/2025 2:40 PM EDT Office Visit Family Medicine [address] [place] [phone] Taylor Gonzalez MD [address] [place] [address] [place] [address] Scheduled Procedures Name Priority Associated Diagnoses Date/Ti [...] filedocumented as of this encounter Care Teams Spindle Frame Carver Relationship Specialty Start Date End Date Taylor Gonzalez MD [address] [place] [address] [place] [address] PCP - General Family Medicine 07/27/18 documented as of this encounter
--- OUTSIDE RECORDS SUMMARY | 2025-01-13 03:09 | External Medical Summary ---
Author Name Unknown Address Unknown Organization K01:[facility] [place] [address] [facility] [address] Laboratory Report Ordering Provider Test Date Status BEV,DURA 11/15/2024 12:44:44 Final Observation Date Value Abnormality Reference (Units ) Status TSH 11/15/2024 12:44:44 3.85 0.27-4.20 (uIU/mL) Final Performing Location LAB[facility]ATORY [facility] - [address] [facility] [address]
--- OUTSIDE RECORDS SUMMARY | 2025-01-13 03:09 | External Medical Summary ---
Author Name Unknown Address Unknown Organization K01:[facility]ATORY [facility] - [address] [facility] [address] Laboratory Report Ordering Provider Test Date Status BEV,DURA 11/15/2024 12:44:44 Final Observation Date Value Abnormality Reference (Units ) Status Triglyceride 11/15/2024 12:44:44 224 Above high normal <=174 (mg/dL) Final Triglyceride Reference Range s (mg/dL):
<150 Acceptable
150-174 Borderline high
175-499 High
>=500 Very high Cholesterol 11/15/2024 12:44:44 264 Above high normal <200 (mg/dL) Final Total Cholesterol Reference Ranges (mg/dL):
<200 Desirable
200-239 Borderline high
>=240 High HDL 11/15/2024 12:44:44 34 Below low normal >49 (mg/dL) Final HDL Cholesterol Reference Ra nges (mg/dL):
>=60 High (Desirable)
<50 Low (Undesirable) For Females
<40 Low (Undesirable) For Males NON-HDL CHOLESTEROL 11/15/2024 12:44:44 230 Above high normal <=159 (mg/dL) Final Non-HDL Cholesterol Referenc e Range (mg/dL):
<100 Target level for high risk ASCVD patient
<130 Optimal for general population
130-159 Near optimal for general population
160-189 Borderline High
190-219 High
>=220 Very High LDL, (calculated) 11/15/2024 12:44:44 185 Above high n ormal <=129 (mg/dL) Final LDL Cholesterol Reference Ra nges (mg/dL):
<70 Target level for high risk ASCVD patient
<100 Optimal for general population
100-129 Near optimal for general population
130-159 Borderline high
160-189 High
>=190 Very high Performing Location [facility] [place] [address] [facility] [address]
--- OUTSIDE RECORDS SUMMARY | 2025-01-13 03:09 | External Medical Summary | Summary of Care ---
Author Name Unknown Organization [facility] Address [address] [place] [address] Phone [phone] Care Team Providers Care Coloring Room Man Name Role Phone Taylor Gonzalez MD Primary Care Prov ider Reason for Visit * Reason Onset Date Comments Returning Call 11/18/2024 Encounter Details Date Type Department Care Team (Late st Contact Info) Description 11/18/2024 Telephone Family Medicine [address] [phone] Taylor Gonzalez MD [address] [place] [phone] Returning Call Allergies Active Allergy Reactions Criticality Noted Date [...] mRNA, LNP-s, No Pre serve, 2-Dose Series ([employer]) 06/15/2021,05/25/2021 COVID-19, LNP-s, No Preserve , Shoaib-sucrose, Ages 12+ (Say-Hey) 03/22/2022 Pneumococcal Conjugate Vaccine, 20-valent (Prevn ar20) [...] encounter Miscellaneous Notes * Telephone Encounter - Ping Mancini drafter castings - 11/18/2024 5:44 PM EST Pt returning call, warm transfer to [facility] Thank you, Ping Mancini CPhT Solutions Architect II [facility] Pharm[facility] Services([facility]) 11/18/2024,5:45 PM documented in this encounter Plan of Treatment Upcoming Encounters Date Type Department Care Team (Late st Contact Info) Description 12/31/2024 7:30 AM EST Office Visit Gastroenterology, [facility] [address] [place] [address] Jeanne Goldsmith CRNP [address] [place] [address] 03/05/2025 2:40 PM EDT Office Visit Family Medicine [address] [place] [phone] Taylor Gonzalez MD [address] [place] [address] [place] [address] Scheduled Procedures Name Priority Associated Diagnoses Date/Ti [...] filedocumented as of this encounter Care Teams Coloring Room Man Relationship Specialty Start Date End Date Taylor Gonzalez MD [address] [place] [address] [place] [address] PCP - General Family Medicine 07/27/18 documented as of this encounter
--- OUTSIDE RECORDS SUMMARY | 2025-01-13 03:09 | External Medical Summary | Summary of Care ---
Author Name Unknown Organization [facility] Address [address] [place] [address] Phone [phone] Care Team Providers Care Gristmill Operator Name Role Phone Taylor Gonzalez MD Primary Care Prov ider Reason for Visit * Reason Comments Outpatient Testing Encounter Details Date Type Department Care Team (Late st Contact Info) Description 11/15/2024 12:30 PM EST Laboratory Laboratory [address] [place] [phone] [place] [address] [employer] Other*[id number]; Encounter for long-term (current) use of medications; Acquired hypothyroidism Allergies Active Allergy Reactions Criticality Noted Date Comments Penicillins 06/28/2002 rash Sulfa Antibiotics 04/02/2003 Hives documented as of this encounter (statuses as of 11/15/2024) Medications Esomeprazole Magnesium 20 MG Oral Packet [...] as of this encounter (statuses as of 11/15/2024) Active Problems Problem Noted Date Diagnosed Date 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 Nephrolithiasis 08/07/2020 Uterine fibroid 07/27/2018 Adjustment disorder with anxious mood 07/27/2018 Dysmenorrhea 07/27/2018 GERD (gastroesophageal reflux disease) 4 Overweight (BMI 25.0-29.9) 09/19/2003 COMMON MIGRAINE WITHOUT MENTION OF INTRACTABLE M IGRAINE 05/21/2003 Tension headache 05/21/2003 Migraine aura, persistent Irritable bowel syndrome documented as of this encounter (statuses as of 11/15/2024) Resolved Problems Problem Noted Date Diagnosed Date Resolved Date 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 Irritable bowel syndrome 06/28/2002 Encounter for supervision of other normal 05/27/2002 Overview (03/29/2016): ICD-10 update of inactive term documented as of this encounter (statuses as of 11/15/2024) Immunizations Name Administration Dates Next Due COVID-19 mRNA, LNP-s, No Pre serve, 2-Dose Series ([employer]) 06/15/2021,05/25/2021 COVID-19, LNP-s, No Preserve , Shoaib-sucrose, [...] 2:40 PM EDT Office Visit Family Medicine [address] [phone] Taylor Gonzalez, MD [address] [place] [address] [place] [phone] Pending Results Name Type Priority Associated Diagnoses Date /Time MYCODE SUBSEQUENT ADULT Lab Routine [employer] Other*[id number] 11/15/2024 12:44 PM EST LIPID PANEL WITH DIRECT LDL IF TG IS HIGH Lab Routine Encounter for long-term (current) use of medications 11/15/2024 12:44 PM EST TSH WITH FREE T4 IF INDICATED Lab Routine Encounter for long-term (current) use of medications 11/15/2024 12:44 PM EST MYCODE SST1 Lab Routine [employer] Other*[id number] 11/15/2024 12:44 PM EST MYCODE SST2 Lab Routine [employer] Other*[id number] 11/15/2024 12:44 PM EST Scheduled Procedures Name Priority Associated [...] shot) (#1) 2024 10/02/2002 Mammogram 07/08/2025 07/08/2024, 06/11/2021, 02/08/2021, Additional history exists Diabetes Screening 09/27/2025 [...] this encounter Visit Diagnoses Diagnosis [employer] Other*[id number] Encounter for long-term (current) use of medications Encounter for long-term (current) use of other medications Acquired hypothyroidism Unspecified hypothyroidism documented in this encounter Care Teams Gristmill Operator Relationship Specialty Start Date End Date Taylor Gonzalez MD [address] [place] [address] [place] [address] PCP - General Family Medicine 07/27/18 documented as of this encounter
--- OUTSIDE RECORDS SUMMARY | 2025-01-13 03:09 | External Medical Summary ---
Author Name Unknown Address Unknown Organization K01:LABORATORY [facility] [place] - [address] [place] [address] Laboratory Report Ordering Provider Test Date Status SANNA MIJARES 11/15/2024 12:44:44 Final Observation Date Value Abnormality Reference (Units ) Status MYCODE SPECIMEN-SST 11/15/2024 12:44:44 Freezing of extracted DNA, whole blood and/or serum. Final Performing Location LABORATORY [facility] [place] - [address] [place] [address]
--- OUTSIDE RECORDS SUMMARY | 2025-01-13 03:09 | External Medical Summary | Summary of Care ---
Author Name Unknown Organization [facility] Address [address] [facility] [address] Phone [phone] Care Team Providers Care Desk Monitor Name Role Phone Taylor Gonzalez MD Primary Care Prov ider Reason for Visit * Reason Onset Date Comments Test Results Lab 11/18/2024 Encounter Details Date Type Department Care Team (Late st Contact Info) Description 11/18/2024 Telephone Centralized Clinical Pharmacy Services, Fang Arteaga [address] [place] [address] [place] [phone] [facility] [address] [place] [address] Test Results Lab Allergies Active Allergy Reactions [...] encounter Miscellaneous Notes * Addendum Note - Ryan Ramirez [facility] - 11/18/2024 5:59 PM ESTAddended by: RYAN [...] Please sign if agreeable. Thank you, Ryan Ramirez PharmD Clinical Pharmacist Centralized Clinical Pharmacy Services ([facility]) 11/18/24 5:53 PM [phone] * Telephone Encounter - Angélica Hollins RPh - 11/18/2024 4:15 PM EST Called patient to review most recent lab results. Lipid panel and ASCVD risk elevated. Lab Results Component Value Date/Time LDL CHOLESTEROL (CALCULATED) - [facility] 185 (H) 11/15/2024 12:44 PM LDL CHOLESTEROL (CALCULATED) - [facility] 126 07/27/2018 02:53 PM LDL CHOLESTEROL (DIRECT MEASURE) - [facility] NOT APPLICABLE 07/27/2018 02:53 PM The 10-year [...] not available, transfer to next available [facility]. Thanks, Angélica Hollins PharmD Clinical Pharmacist Centralized Clinical Pharmacy Services ([facility]) [phone] 11/18/2024, 4:17 PM documented in this encounter Plan of Treatment Upcoming Encounters Date Type Department Care Team (Late st Contact Info) Description 12/31/2024 7:30 AM EST Office Visit Gastroenterology, [facility] [address] [place] [address] Jeanne Goldsmith CRNP [address] [place] [address] 03/05/2025 2:40 PM EDT Office Visit Family Medicine [address] [place] [phone] Taylor Gonzalez MD [address] [place] [address] [place] [address] Scheduled Orders Name Type Priority Associated Diagnoses [...] Primary documented in this encounter Care Teams Desk Monitor Relationship Specialty Start Date End Date Taylor Gonzalez MD [address] [place] [address] [place] [address] PCP - General Family Medicine 07/27/18 documented as of this encounter
[2025-01-13 03:10] VITALS: TEMP 97.7
--- NOTE | 2025-01-13 03:20 | Emergency Department Note ---
History of Present Illness General Chief complaint: Hypertension Stated complaint: NAUSEA,UPR ABD,LFT SIDE,HEAD PAIN,HIGH BLOOD PRESS Time Seen by Provider: 01/13/25 03:11 History of Present Illness Maximum Pain Intensity: 5 This 49-year-old female presents ER complaining of upper abdominal pain and chest pain with headache for the past day. She has had ongoing abdominal pain for quite some time and has appointment next month for an EGD. She is on Nexium and Carafate. Patient went to [place] last week with no clear etiology for her symptoms. Patient denies fever, chills, cough, congestion, black or blood in the stool. She states her blood pressure is also elevated. Home Medications Medication Instructions Recorded Confirmed Type acetaminophen 500 mg capsule 1,000 mg (2 x 500 mg) PO Q8 PRN 01/13/25 Rx fever #60 caps albuterol sulfate 90 mcg/actuation 2 puff inhalation Q4H PRN 01/13/25 01/13/25 History aerosol inhaler Shortness Of Breath Or Wheezing amlodipine 10 mg tablet 10 mg PO DAILY #30 tabs 01/13/25 Rx buspirone 15 mg tablet 15 mg PO BID 01/13/25 01/13/25 History escitalopram oxalate 20 mg tablet 20 mg PO DAILY 01/13/25 01/13/25 History esomeprazole magnesium 40 mg 40 mg PO DAILY 01/13/25 01/13/25 History capsule,delayed release famotidine 20 mg tablet 20 mg PO HS 01/13/25 01/13/25 History levothyroxine 25 mcg tablet 25 mcg PO DAILY 01/13/25 01/13/25 History oxycodone 5 mg tablet 5 mg PO BID PRN pain #20 tabs 01/13/25 Rx rosuvastatin 10 mg tablet 10 mg PO DAILY 01/13/25 01/13/25 History sucralfate 1 gram tablet 1 g PO ACHS 01/13/25 01/13/25 History topiramate 50 mg tablet 50 mg PO DAILY 01/13/25 01/13/25 History Allergies Allergy/AdvReac Type Severity Reaction Status Date / Time Cephalosporins Allergy Intermediate Hives Verified 11/08/24 14:33 Penicillins Allergy Intermediate Hives Verified 11/08/24 14:33 Sulfa (Sulfonamide Allergy Intermediate Hives Verified 11/08/24 14:33 Antibiotics) Past Med/Surg History Problem List Fibroids Abdominal pain Hypokalemia (Acute) Hydroureteronephrosis (Acute) Ovarian cyst (Acute) Elevated blood pressure reading (Acute) Headache (Acute) Chest pain (Acute) Abdominal pain, acute (Acute) COVID-19 (Acute) Occipital neuralgia of right side Dental abscess Dental infection (Acute) Facial cellulitis Medical History Asthma Frequent UTI Headache Surgical History History of cholecystectomy H/O laparoscopy H/O hernia repair Family History Father No problems noted. 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 Feels Safe at Home: Yes Review of Systems A total of 10 systems reviewed and were otherwise negative Physical Exam Vital Signs Vital Signs - 24 hr 01/13/25 03:05 01/13/25 03:18 01/13/25 03:20 Temperature 36.5 C Temperature Source Temporal Artery Scan Pulse Rate 85 Pulse Rate [Finger] Pulse Rate from SpO2 Sensor Respiratory Rate 20 Respiratory Effort / Characteristics Non-Labored Spontaneous Respiratory Depth Normal Respiratory Pattern Blood Pressure 186/108 H 149/95 H Blood Pressure [Left Arm] Blood Pressure Mean 134 116 Blood Pressure Mean [Left Arm] Blood Pressure Position Sitting Pulse Oximetry 100 100 Oxygen Delivery Method Room Air Room Air Sepsis Recent Fever Within 48 Hours No Sepsis New/Unexplained Change in Mental Status No Sepsis Action Taken by Nursing No Action Required 01/13/25 03:23 01/13/25 03:30 01/13/25 03:39 Temperature Temperature Source Pulse Rate 74 71 Pulse Rate [Finger] Pulse Rate from SpO2 Sensor 71 Respiratory Rate 17 Respiratory Effort / Characteristics Respiratory Depth Respiratory Pattern Blood Pressure 146/94 H Blood Pressure [Left Arm] Blood Pressure Mean 104 Blood Pressure Mean [Left Arm] Blood Pressure Position Pulse Oximetry 100 Oxygen Delivery Method Sepsis Recent Fever Within 48 Hours Sepsis New/Unexplained Change in Mental Status Sepsis Action Taken by Nursing 01/13/25 03:45 01/13/25 03:51 01/13/25 04:00 Temperature Temperature Source Pulse Rate 71 70 Pulse Rate [Finger] Pulse Rate from SpO2 Sensor 71 70 Respiratory Rate 19 19 Respiratory Effort / Characteristics Respiratory Depth Respiratory Pattern Blood Pressure 143/99 H Blood Pressure [Left Arm] Blood Pressure Mean 108 Blood Pressure Mean [Left Arm] Blood Pressure Position Pulse Oximetry 100 99 Oxygen Delivery Method Sepsis Recent Fever Within 48 Hours Sepsis New/Unexplained Change in Mental Status Sepsis Action Taken by Nursing 01/13/25 04:27 01/13/25 04:30 01/13/25 04:33 Temperature Temperature Source Pulse Rate 81 79 Pulse Rate [Finger] Pulse Rate from SpO2 Sensor 81 79 Respiratory Rate 20 21 Respiratory Effort / Characteristics Respiratory Depth Respiratory Pattern Blood Pressure 148/94 H Blood Pressure [Left Arm] Blood Pressure Mean 108 Blood Pressure Mean [Left Arm] Blood Pressure Position Pulse Oximetry 98 99 Oxygen Delivery Method Sepsis Recent Fever Within 48 Hours Sepsis New/Unexplained Change in Mental Status Sepsis Action Taken by Nursing 01/13/25 05:54 01/13/25 06:00 01/13/25 06:30 Temperature Temperature Source Pulse Rate Pulse Rate [Finger] Pulse Rate from SpO2 Sensor 67 68 72 Respiratory Rate Respiratory Effort / Characteristics Respiratory Depth Respiratory Pattern Blood Pressure 147/98 H 129/91 129/91 Blood Pressure [Left Arm] Blood Pressure Mean 114 103 103 Blood Pressure Mean [Left Arm] Blood Pressure Position Pulse Oximetry 100 99 97 Oxygen Delivery Method Room Air Room Air Room Air Sepsis Recent Fever Within 48 Hours Sepsis New/Unexplained Change in Mental Status Sepsis Action Taken by Nursing 01/13/25 06:45 01/13/25 06:51 01/13/25 07:00 Temperature Temperature Source Pulse Rate Pulse Rate [Finger] 68 Pulse Rate from SpO2 Sensor 75 73 Respiratory Rate 18 Respiratory Effort / Characteristics Non-Labored Spontaneous Respiratory Depth Normal Respiratory Pattern Regular Blood Pressure Blood Pressure [Left Arm] 127/89 Blood Pressure Mean Blood Pressure Mean [Left Arm] 101 Blood Pressure Position Pulse Oximetry 98 99 97 Oxygen Delivery Method Room Air Sepsis Recent Fever Within 48 Hours Sepsis New/Unexplained Change in Mental Status Sepsis Action Taken by Nursing 01/13/25 07:00 01/13/25 07:00 Temperature Temperature Source Pulse Rate Pulse Rate [Finger] Pulse Rate from SpO2 Sensor 69 Respiratory Rate Respiratory Effort / Characteristics Respiratory Depth Respiratory Pattern Blood Pressure 127/89 Blood Pressure [Left Arm] Blood Pressure Mean 101 Blood Pressure Mean [Left Arm] Blood Pressure Position Pulse Oximetry 98 Oxygen Delivery Method Sepsis Recent Fever Within 48 Hours Sepsis New/Unexplained Change in Mental Status Sepsis Action Taken by Nursing VITALS: Vitals are noted on the nurse's note and reviewed by myself. Vital signs hypertensive. GENERAL: Pleasant female with present, in no acute distress, nondiaphoretic, well-developed well-nourished. SKIN: The skin was without rashes, erythema, edema, or bruising. There is no tenting of the skin. Capillary reflex less than 2 seconds. HEAD: Normocephalic atraumatic. EARS: External auditory canals clear EYES: Pupils equal round and reactive to light and accommodation. Conjunctivae without injection, sclerae without icterus. Extraocular movements intact. NOSE: Patent, no discharge. MOUTH: Mucous membranes moist. Pharynx without erythema or exudate. Uvula midline. Airway patent. Tongue does not deviate. NECK: Supple without nuchal rigidity. No lymphadenopathy. No thyromegaly. Cervical spine is nontender. No JVD. HEART: Regular rate and rhythm LUNGS: Clear to auscultation bilaterally without wheezes, rales or rhonchi. No retractions or accessory muscle use. ABDOMEN: Positive bowel sounds x 4. Normal tympanic percussion. Soft, tender mid abdomen, without masses or organomegaly. Self sign negative. No guarding or rebound tenderness. No CVA tenderness MUSCULOSKELETAL: No muscle atrophy, erythema, or edema noted. NEURO: Patient was alert and oriented to person place and time. Normal sensation to light and sharp touch. No focal neurological deficits. Course Administered Medications Discontinued Medications Buspirone HCl (Buspirone 15 Mg Tab) 15 mg PO BID JOON Stop: 02/12/25 09:48 Last Admin: 01/13/25 11:45 Dose: 15 mg Documented By: OLIVER Diphenhydramine HCl (Diphenhydramine 50 Mg/Ml Vial) 25 mg IV NOW STA Stop: 01/13/25 03:16 Last Admin: 01/13/25 03:25 Dose: 25 mg Documented By: YANA Escitalopram Oxalate (Escitalopram Oxalate 20 Mg Tab) 20 mg PO DAILY JOON Stop: 02/12/25 09:48 Last Admin: 01/13/25 11:45 Dose: 20 mg Documented By: OLIVER Gadobutrol (Gadobutrol 65ml Vial) 6.5 ml IV ONCE ONE Stop: 01/13/25 11:02 Last Admin: 01/13/25 11:01 Dose: 6.5 ml Documented By: BEAN Sodium Chloride (Nss) 1,000 mls @ 999 mls/hr IV .Q1H1M STA Stop: 01/13/25 04:15 Last Infusion: 01/13/25 04:44 Dose: Infused Documented By: Admin: 01/13/25 03:23 Dose: 999 mls/hr Documented By: YANA Famotidine (Pepcid 20mg Iv Push) 20 mg in 5 mls @ 2.5 mls/min IV NOW STA Stop: 01/13/25 03:16 Last Admin: 01/13/25 03:26 Dose: 2.5 mls/min Documented By: YANA Pantoprazole Sodium (Protonix) 40 mg in 10 mls @ 5 mls/min IV NOW ONE Stop: 01/13/25 03:16 Last Admin: 01/13/25 03:26 Dose: 5 mls/min Documented By: YANA Potassium Chloride (K [place] / Wtr) 10 meq in 100 mls @ 100 mls/hr IV ONE ONE Stop: 01/13/25 08:58 Last Infusion: 01/13/25 09:17 Dose: Infused Documented By: Admin: 01/13/25 08:08 Dose: 100 mls/hr Documented By: OLIVER Sodium Chloride (Nss) 1,000 mls @ 125 mls/hr IV .Q8H JOON Stop: 01/14/25 09:48 Last Admin: 01/13/25 11:45 Dose: 125 mls/hr Documented By: OLIVER Ioversol (Optiray 320 125ml) 125 ml IV ONCE ONE Stop: 01/13/25 04:29 Last Admin: 01/13/25 04:28 Dose: 118 ml Documented By: TERRY Levothyroxine Sodium (Levothyroxine Sodium 25 Mcg Tablet) 25 mcg PO DAILYBB JOON Stop: 02/12/25 09:48 Last Admin: 01/13/25 11:45 Dose: 25 mcg Documented By: OLIVER Metoclopramide HCl (Metoclopramide Hcl Inj 5 Mg/Ml 2 Ml Vial) 10 mg IV NOW STA Stop: 01/13/25 03:16 Last Admin: 01/13/25 03:26 Dose: 10 mg Documented By: YANA Pantoprazole Sodium (Pantoprazole 40 Mg Tab) 40 mg PO DAILY JOON Stop: 02/12/25 09:59 Last Admin: 01/13/25 11:45 Dose: 40 mg Documented By: OLIVER Potassium Chloride (Potassium Chloride Crtab 20 Meq Tabcr) 40 meq PO NOW STA Stop: 01/13/25 03:56 Last Admin: 01/13/25 04:34 Dose: 40 meq Documented By: YANA Potassium Chloride (Potassium Chloride Crtab 20 Meq Tabcr) 40 meq PO NOW STA Stop: 01/13/25 08:00 Last Admin: 01/13/25 08:20 Dose: Not Given Documented By: OLIVER Rosuvastatin Calcium (Rosuvastatin Calcium 10 Mg Tab) 10 mg PO DAILY JOON Stop: 02/12/25 09:48 Last Admin: 01/13/25 11:45 Dose: 10 mg Documented By: OLIVER Sucralfate (Sucralfate 1 Gm Tab) 1 gm PO ACHS [facility] Stop: 02/12/25 09:48 Last Admin: 01/13/25 11:59 Dose: Not Given Documented By: Admin: 01/13/25 11:45 Dose: 1 gm Documented By: OLIVER Topiramate (Topiramate 50 Mg Tab) 50 mg PO DAILY JOON Stop: 02/12/25 09:48 Last Admin: 01/13/25 11:45 Dose: 50 mg Documented By: OLIVER Medical Decision Making Medical Records Attestation: I reviewed the patient's medical records. Home Medications Current Medication List: was personally reviewed by me Laboratory Data Attestation: I reviewed the patient's lab results. 01/13/25 03:21 01/13/25 03:21 Lab Results 01/13/25 01/13/25 01/13/25 Range/Units 03:21 03:26 04:33 WBC 11.47 H (4.8-10.8) K/ul RBC 4.34 (4.20-5.40) M/uL Hgb 13.1 (12.0-16.0) g/dl POC Hgb 13.3 (12.0-16.0) g/dl Hct 39.3 (37.0-47.0) % POC Hct 39 (37-47) % MCV 90.6 (80.0-100.0) fL MCH 30.2 (25.0-34.0) pg MCHC 33.3 (32.0-36.0) g/dL RDW Std Deviation 45.1 (36.4-46.3) fL RDW Coeff of Gemma 13.6 (11.5-14.5) % Plt Count 334 (130-400) K/uL MPV 11.2 (9.4-12.4) fL Immature Gran % (Auto) 0.2 % Neut % (Auto) 51.4 % Lymph % (Auto) 36.1 % [place] % (Auto) 7.1 % Eos % (Auto) 4.5 % Baso % (Auto) 0.7 % Neut # (Auto) 5.89 (1.40-6.50) K/uL Lymph # (Auto) 4.14 H (1.20-3.40) K/uL [place] # (Auto) 0.82 H (0.11-0.59) K/uL Eos # (Auto) 0.52 H (0.00-0.50) K/uL Baso # (Auto) 0.08 (0.00-0.20) K/uL Immature Gran # (Auto) 0.02 (0.01-0.20) K/uL POC Sodium 142 (135-144) mmol/L Sodium 139 (136-145) mmol/L POC Potassium 2.9 L (3.3-5.0) mmol/L Potassium 3.0 L (3.5-5.1) mmol/L POC Chloride 105 (101-112) mmol/L Chloride 108 H (98-107) mmol/L Carbon Dioxide 26 (21-32) mmol/L POC Total CO2 24 (24-31) mmol/L Anion Gap 5 (3-11) POC Anion Gap 17.0 (16-25) mmol/L POC BUN 6 L (7-18) mg/dl BUN 8 (6-23) mg/dl Creatinine 0.87 (0.6-1.2) mg/dl POC Creatinine 0.9 (0.6-1.3) mg/dl Est Cr Clr Drug Dosing 68.3 ml/min eGFR 82.64 BUN/Creatinine Ratio 9.2 L (10-20) Glucose 65 L (70-99(Fasting)) mg/dl POC Glucose 97 (70-99) mg/dl POC Glucose (other) 63 L* (70-99) mg/dl Calcium 9.1 (8.6-10.3) mg/dl POC Ioniz Calcium Carol[place] 1.20 (1.12-1.32) mmol/l Magnesium 2.0 (1.7-2.4) mg/dl Total Bilirubin 0.3 (0.2-1.0) mg/dl AST 11 L (13-39) U/L ALT 8 (7-52) U/L Alkaline Phosphatase 66 (34-104) U/L Troponin I High Sens 3.3 (0-14) pg/ml Total Protein 6.5 (6.0-8.3) gm/dl Albumin 4.1 (3.4-5.0) gm/dl Globulin 2.4 L (2.5-4.0) gm/dl Albumin/Globulin Ratio 1.7 (0.9-2) Lipase 76 (11-82) U/L HCG, Qual Negative (Negative) 01/13/25 Range/Units 04:42 WBC (4.8-10.8) K/ul RBC (4.20-5.40) M/uL Hgb (12.0-16.0) g/dl POC Hgb (12.0-16.0) g/dl Hct (37.0-47.0) % POC Hct (37-47) % MCV (80.0-100.0) fL MCH (25.0-34.0) pg MCHC (32.0-36.0) g/dL RDW Std Deviation (36.4-46.3) fL RDW Coeff of Gemma (11.5-14.5) % Plt Count (130-400) K/uL MPV (9.4-12.4) fL Immature Gran % (Auto) % Neut % (Auto) % Lymph % (Auto) % [place] % (Auto) % Eos % (Auto) % Baso % (Auto) % Neut # (Auto) (1.40-6.50) K/uL Lymph # (Auto) (1.20-3.40) K/uL [place] # (Auto) (0.11-0.59) K/uL Eos # (Auto) (0.00-0.50) K/uL Baso # (Auto) (0.00-0.20) K/uL Immature Gran # (Auto) (0.01-0.20) K/uL POC Sodium (135-144) mmol/L Sodium (136-145) mmol/L POC Potassium (3.3-5.0) mmol/L Potassium (3.5-5.1) mmol/L POC Chloride (101-112) mmol/L Chloride (98-107) mmol/L Carbon Dioxide (21-32) mmol/L POC Total CO2 (24-31) mmol/L Anion Gap (3-11) POC Anion Gap (16-25) mmol/L POC BUN (7-18) mg/dl BUN (6-23) mg/dl Creatinine (0.6-1.2) mg/dl POC Creatinine (0.6-1.3) mg/dl Est Cr Clr Drug Dosing ml/min eGFR BUN/Creatinine Ratio (10-20) Glucose (70-99(Fasting)) mg/dl POC Glucose (70-99) mg/dl POC Glucose (other) (70-99) mg/dl Calcium (8.6-10.3) mg/dl POC Ioniz Calcium [place] (1.12-1.32) mmol/l Magnesium (1.7-2.4) mg/dl Total Bilirubin (0.2-1.0) mg/dl AST (13-39) U/L ALT (7-52) U/L Alkaline Phosphatase (34-104) U/L Troponin I High Sens 3.4 (0-14) pg/ml Total Protein (6.0-8.3) gm/dl Albumin (3.4-5.0) gm/dl Globulin (2.5-4.0) gm/dl Albumin/Globulin Ratio (0.9-2) Lipase (11-82) U/L HCG, Qual (Negative) Imaging Data Attestation: I personally reviewed and interpreted this imaging study as follows: Radiologist's Impression: Pelvis Ultrasound 01/13/25 05:24 EXAM: US pelvic complete CLINICAL HISTORY: Abnormal CT exam. TECHNIQUE: Ultrasound examination of the pelvis was performed in real time and duplex using a trans-abdominal approach. The vascular flow was evaluated using color flow and with a spectral pattern of the flow waveform. COMPARISON: 01/13/2025 CT and 04/07/2023 US. FINDINGS: Uterus: Heterogeneous enlarged anteverted uterus measuring 9.3 x 9 x 7.3 cm. Multiple myometrial heterogenous fibroids were observed the largest measures 6.7 x 5.8 x 5.5 cm. Endometrial stripe thickness: 7 mm. V-shaped endometrium with slight displacement anteriorly. Ovaries: Right ovary size: 2.5 x 2.5 x 2 cm. Vascular flow was seen. Left ovary size: 4.1 x 4.1 x 3.4 cm. The vascular flow was seen Left ovarian cyst with septation measuring 3.7 x 3 x 3.3 cm. No significant increased vascularity on color Doppler application. Bladder: Urinary bladder not specifically evaluated in the provided images Additional Findings: No pelvic free fluid. IMPRESSION: 1. Enlarged uterus with multiple uterine fibroids (unchanged). 2. Redemonstration of left ovarian cyst with septation measuring 3.7 x 3 x 3.3 cm, interval involution of the cyst(As per CT exam). No significant increased vascularity. RECOMMENDATIONS: Clinical correlation with symptoms and further evaluation as indicated. Further evaluation with MRI may be advised. Electronically signed by Lisa Neumann 01-13-2025 07:48 AM MDM Narrative Prior records/ancillary studies reviewed and summarized above. Nursing notes reviewed. Additional history obtained from family. The patient's history was concerning for chest pain, abdominal pain, headache, hypertension. Differential diagnosis: Etiologies such as metabolic, infection, hypo/hyperglycemia, electrolyte abnormalities, cardiac sources, intracerebral event, toxicologic, neurologic, as well as others were entertained. Physical examination: As above. ER treatment provided: IV Lock An order was placed for continuous cardiac monitoring. The monitor shows a rate of 60-100 with a sinus rhythm per my interpretation. IV fluids, Reglan, Benadryl, Pepcid, Protonix, potassium On reassessment the patient felt better. Diagnostics interpretation by me: ECG: Ordered for chest pain EKG: Normal sinus, incomplete right bundle, no acute ST-T wave changes. EKG compared to prior EKG with no acute changes noted. Impression normal sinus rhythm with incomplete right bundle unchanged from prior independently interpreted by myself The labs Independently Interpreted by myself revealed mild leukocytosis, hypokalemia this is replaced orally. Blood sugar slightly low and patient was given juice and repeat blood sugar was improved Negative troponin x 2, negative hCG Imaging studies: Imaging was reviewed and read by radiology HEART SCORE: Hx: high/mod/low suspicion: 0 ECG: ST depression/nonspecific changes/normal: 0 Age: Greater than 65/45-64/less than 45: 1 Risk factors: (Hypertension, hyperlipidemia, diabetes, coronary disease, tobacco use, cocaine use): 1 Troponin: Greater than 2 times normal limits/1-2 times normal limits/normal: 0 Total: 2 Consultation: A consultation was placed with the hospitalist. The case was discussed and diagnostics were reviewed. The patient was evaluated in the ER for further treatment. Exam and history seem consistent with chest pain, abdominal pain and headache with enlarging uterus causing hydroureteronephrosis on the right kidney with ovarian cyst. Patient would like to stay and be evaluated by OB and GI. Her symptoms been ongoing and getting worse. I felt this is reasonable. Medicine was consulted case discussed. She will be evaluated for possible admission..By the evaluation outlined above emergent etiologies such as infection, electrolyte abnormalities, cardiac sources, intracerebral event, toxologic, neurologic, abnormalities blood glucose, metabolic, as well as others were deemed relatively unlikely. The pt informed about the findings as listed above. All questions were answered and pleased with the treatment. The chart was completed utilizing [employer] Speech voice recognition software. Grammatical errors, random word insertions, pronoun errors, and incomplete sentences are an occassional consequence of this system due to software limitations, ambient noise, and hardware issues. Any formal questions or concerns about the content, text, or information contained within the body of this dictation should be directly addressed to the physician personal injury legal assistant for clarification. Impression & Plan Abdominal pain, acute, Chest pain, Headache, Elevated blood pressure reading, Ovarian cyst, Hydroureteronephrosis, Hypokalemia Discharge Plan Visit Data Chief Complaint: Hypertension Stated Complaint: NAUSEA,UPR ABD,LFT SIDE,HEAD PAIN,HIGH BLOOD PRESS ED Provider: Hui Cody ED Midlevel Provider: Yuliya Lo Discharge Problem: Abdominal pain, acute, Chest pain, Headache, Elevated blood pressure reading, Ovarian cyst, Hydroureteronephrosis, Hypokalemia Patient Disposition: Admitted As Inpatient Condition: Good Discharge Instructions Interventions: ED Discharge Assessment Last Done: 01/13/25 09:49
[2025-01-13] MEDS: SODIUM CHLORIDE 0.9% 1,000 ML IV STA (03:23)
[2025-01-13] MEDS: diphenhydrAMINE 50 MG/ML VIAL IV STA (03:25)
[2025-01-13] MEDS: PANTOprazole 40 MG/10 ML SYR IV ONE (03:26)
[2025-01-13] MEDS: METOCLOPRAMIDE HCL INJ 5 MG/ML 2 ML VIAL IV STA (03:26)
[2025-01-13] MEDS: FAMOTIDINE 20MG IV PUSH 20 MG/5 ML SYR IV STA (03:26)
[2025-01-13 03:31] LABS: Basophils # (auto) 0.08 K/uL (0.00-0.20); Basophils % (auto) 0.7 %; Eosinophils # (auto) 0.52 K/uL (0.00-0.50); Eosinophils % (auto) 4.5 %; Hematocrit (blood only) 39.3 % (37.0-47.0); Hemoglobin 13.1 g/dl (12.0-16.0); Immature Granulocytes # (auto) 0.02 K/uL (0.01-0.20); Immature Granulocytes % (auto) 0.2 %; Lymphocytes # (auto) 4.14 K/uL (1.20-3.40); Lymphocytes % (auto) 36.1 %; Mean Corpuscular Hemoglobin 30.2 pg (25.0-34.0); Mean Corpuscular Hgb Conc 33.3 g/dL (32.0-36.0); Mean Corpuscular Volume 90.6 fL (80.0-100.0); Mean Platelet Volume 11.2 fL (9.4-12.4); Monocytes # (auto) 0.82 K/uL (0.11-0.59); Monocytes % (auto) 7.1 %; Neutrophils # (auto) 5.89 K/uL (1.40-6.50); Neutrophils % (auto) 51.4 %; Platelet Count 334 K/uL (130-400); RDW Coefficient of Variation 13.6 % (11.5-14.5); RDW Standard Deviation 45.1 fL (36.4-46.3); Red Blood Count 4.34 M/uL (4.20-5.40); White Blood Count 11.47 K/ul (4.8-10.8)
[2025-01-13 03:40] LABS: iSTAT Creatinine 0.9 mg/dl (0.6-1.3); iSTAT Hemoglobin 13.3 g/dl (12.0-16.0); iSTAT Ionized Calcium 1.2 mmol/l (1.12-1.32); iSTAT Potassium 2.9 mmol/L (3.3-5.0)
[2025-01-13 03:49] LABS: Pregnancy Test, Serum Negative (Negative)
[2025-01-13 03:51] LABS: Albumin Globulin Ratio 1.7 (0.9-2); Albumin Level 4.1 gm/dl (3.4-5.0); BUN Creatinine Ratio 9.2 (10-20); Bilirubin,Total 0.3 mg/dl (0.2-1.0); Calcium 9.1 mg/dl (8.6-10.3); Creatinine Clr Calc Pharmacy 68.3 ml/min; Globulin 2.4 gm/dl (2.5-4.0); Total Protein 6.5 gm/dl (6.0-8.3)
[2025-01-13 03:57] LABS: Troponin I High Sensitivity 3.3 pg/ml (0-14)
[2025-01-13] MEDS: OPTIRAY 320 125ml IV ONE (04:28)
[2025-01-13] MEDS: POTASSIUM CHLORIDE CRTAB 20 MEQ TABCR PO STA ×2 (04:34→08:20)
--- NOTE | 2025-01-13 05:05 | CT Scan Report ---
EXAM: CT head/brain wo con CLINICAL HISTORY: FRANKEL, HTN TECHNIQUE: Multiple axial images are obtained from the skull base to the vertex without contrast. CT scan was performed according to ALARA (as low as reasonable achievable). COMPARISON: 08 JUL 2022. FINDINGS: The brain shows normal morphology, attenuation, and volume for age. No evidence of space occupying lesion, hemorrhage, edema, mass effect, midline shift, extra axial collection, or hydrocephalus is noted. Ventricles, sulci, and basal cisterns are symmetric and normal in size and configuration. The silverio-white matter differentiation is preserved. Visualized paranasal sinuses and mastoid air cells are well aerated. Orbital contents are within normal limits. Bony structures are intact. IMPRESSION: 1. No evidence of acute intracranial abnormality is demonstrated No other new interval abnormality since prior study. Electronically signed by Andrew Soto 01-13-2025 05:04 AM
--- NOTE | 2025-01-13 05:08 | CT Scan Report ---
EXAM: CT angio chest PE protocol CLINICAL HISTORY: PE, smoker TECHNIQUE: Contiguous axial images were obtained from the neck base through the upper abdomen following intravenous administration of iodinated contrast material. Angiographic images were processed, 3D MIP images were acquired for interpretation. If IV contrast material had not been administered, the likelihood of detecting abnormalities relevant to the patient's condition would have been substantially decreased. Coronal and sagittal 3-D MIPs were likewise performed and indicated to increase the sensitivity of detectin diffuse clinically relevant pathology. CT scan was performed according to ALARA (as low as reasonable achievable). COMPARISON: None. FINDINGS: Adequate contrast bolus without evidence of pulmonary embolism. The central airways are patent. The lungs are clear. No pleural effusion. The heart, aorta, and pulmonary arteries are of normal size and configuration. There are no appreciable coronary artery and aortic atherosclerotic calcifications. No pericardial effusion is identified. The thyroid is unremarkable. No mediastinal, hilar, or axillary lymphadenopathy is noted. No suspicious lytic or sclerotic osseous lesions are identified. IMPRESSION: 1. No evidence of pulmonary embolism or pulmonary disease. Electronically signed by Andrew Soto 01-13-2025 05:07 AM
--- NOTE | 2025-01-13 05:15 | CT Scan Report ---
EXAM: CT abd pelvis IV con only CLINICAL HISTORY: upper abd pain TECHNIQUE: Contiguous axial images were obtained from the level of the diaphragm to the pubic symphysis with intravenous contrast. Coronal and sagittal reconstructions were likewise performed and indicated to increase the sensitivity for detecting clinically relevant pathology. If IV contrast material had not been administered, the likelihood of detecting abnormalities relevant to the patient's condition would have been substantially decreased. CT scan was performed according to ALARA (as low as reasonable achievable). COMPARISON: 13 nov 2024 FINDINGS: The visualized lung bases are clear. The liver is normal in size and attenuation. No focal liver lesions are seen. There is no intra or extrahepatic biliary ductal dilatation. Hepatic vasculature is patent. The gallbladder is removed thank you. The spleen, pancreas, and adrenal glands are unremarkable. The kidneys are normal in size and attenuation. There is mild right sided hydroureteronephrosis. No perinephric fat stranding seen. No renal calculi or renal masses are identified. The ureters are normal in caliber and no ureteral calculi are seen. The bladder is normal in contour. Pelvic viscera are unremarkable. No focal or diffuse bowel wall thickening or evidence of bowel obstruction is identified. The appendix is visualized in the right lower quadrant and appears within normal limits. Abdominal and pelvic vasculature is patent. No adenopathy or fluid collections are seen. Uterus appears enlarged in size and shows multiple heterogeneously enhancing lesion involving anterior wall, posterior wall and fundic region - largest measures about 6 x 5 cm - suggestive of uterine fibroids. Cystic lesion with septae seen in left adnexa measuring 4.5 X 3.4 cm in size. No aggressive appearing osseous lesions are identified. IMPRESSION: 1. Bulky uterus and multiple uterine fibroids.-stable. It is causing compression over right ureter and proximal hydroureteronephrosis- new finding as compared to prior study. 2. Cystic lesion with septae seen in left adnexa measuring 4.5 X 3.4 cm in size. Advised ultrasound pelvis correlation. New finding as compared to prior study. 3. No other new interval abnormality since prior study. Electronically signed by Andrew Soto 01-13-2025 05:14 AM
--- NOTE | 2025-01-13 07:49 | Ultrasound Report ---
EXAM: US pelvic complete CLINICAL HISTORY: Abnormal CT exam. TECHNIQUE: Ultrasound examination of the pelvis was performed in real time and duplex using a trans-abdominal approach. The vascular flow was evaluated using color flow and with a spectral pattern of the flow waveform. COMPARISON: 01/13/2025 CT and 04/07/2023 US. FINDINGS: Uterus: Heterogeneous enlarged anteverted uterus measuring 9.3 x 9 x 7.3 cm. Multiple myometrial heterogenous fibroids were observed the largest measures 6.7 x 5.8 x 5.5 cm. Endometrial stripe thickness: 7 mm. V-shaped endometrium with slight displacement anteriorly. Ovaries: Right ovary size: 2.5 x 2.5 x 2 cm. Vascular flow was seen. Left ovary size: 4.1 x 4.1 x 3.4 cm. The vascular flow was seen Left ovarian cyst with septation measuring 3.7 x 3 x 3.3 cm. No significant increased vascularity on color Doppler application. Bladder: Urinary bladder not specifically evaluated in the provided images Additional Findings: No pelvic free fluid. IMPRESSION: 1. Enlarged uterus with multiple uterine fibroids (unchanged). 2. Redemonstration of left ovarian cyst with septation measuring 3.7 x 3 x 3.3 cm, interval involution of the cyst(As per CT exam). No significant increased vascularity. RECOMMENDATIONS: Clinical correlation with symptoms and further evaluation as indicated. Further evaluation with MRI may be advised. Electronically signed by Lisa Neumann 01-13-2025 07:48 AM
[2025-01-13] MEDS: POTASSIUM CHLORIDE / WTR 10 MEQ/100 ML PLCT IV ONE (08:08)
--- NOTE | 2025-01-13 08:23 | History & Physical Report ---
Date of Service January 13, 2025 Assessment & Plan (1) Abdominal pain: Plan: 49-year-old female with past med history significant for GERD, irritable bowel syndrome, uterine fibroid, dysmenorrhea, nephrolithiasis,, migraine, tension headaches, adjustment disorder with anxious mood, fibroadenoma of left breast comes because of abdominal pain going on for several weeks but yesterday got severe. Also some headache. Has chronic cough from smoking. Currently denies any chest pain or shortness of breath. No diarrhea or constipation. Micturition okay. Afebrile. No runny nose or sore throat. Hemodynamics are okay. She went to [facility] couple of weeks ago ,x-ray was done which seems was okay. Abdominal pain Head pain CT scan showing bulky uterus and multiple uterine fibroids. It is causing compression of the right ureter and proximal hydroureteronephrosis. Cystic lesion in left adnexa measuring 4.5X 3.4 cm size Pelvic ultrasound shows enlarged uterus and multiple fibroids. Redemonstration of left ovarian cyst with septation measuring 3.7X 3.3 cm CTA chest no PE or pulmonary disease CT head no acute findings Pain control Consult [facility] and urology for further recommendations Adjustment disorder with anxious mood On Lexapro and buspirone GERD On famotidine, esomeprazole and sucralfate DVT prophylaxis SCDs for now Disposition Medical floor Full code History of Present Illness Chief Complaint: Abdominal pain Primary Care Provider: Taylor Bloom MD 49-year-old female with past med history significant for GERD, irritable bowel syndrome, uterine fibroid, dysmenorrhea, nephrolithiasis,, migraine, tension headaches, adjustment disorder with anxious mood, fibroadenoma of left breast comes because of abdominal pain going on for several weeks but yesterday got severe. Also some headache. Has chronic cough from smoking. Currently denies any chest pain or shortness of breath. No diarrhea or constipation. Micturition okay. Afebrile. No runny nose or sore throat. Hemodynamics are okay. She went to [facility] couple of weeks ago ,x-ray was done which seems was okay. Past medical history. As mentioned above Past surgical history. Colonoscopy. Dental surgery. Hysteroscopy with biopsy. Ligation of oviducts. US guided breast biopsy bilateral. Social history. Smoked on average 0.8 packs of for 25 years. No alcohol use. No drug use. Family history. Maternal cousin had breast cancer. Mother had stroke. Allergies Allergy/AdvReac Type Severity Reaction Status Date / Time Cephalosporins Allergy Intermediate Hives Verified 11/08/24 14:33 Penicillins Allergy Intermediate Hives Verified 11/08/24 14:33 Sulfa (Sulfonamide Allergy Intermediate Hives Verified 11/08/24 14:33 Antibiotics) Home Medications Medication Instructions Recorded Confirmed Type albuterol sulfate 90 mcg/actuation 2 puff inhalation Q4H PRN 01/13/25 01/13/25 History aerosol inhaler Shortness Of Breath Or Wheezing buspirone 15 mg tablet 15 mg PO BID 01/13/25 01/13/25 History escitalopram oxalate 20 mg tablet 20 mg PO DAILY 01/13/25 01/13/25 History esomeprazole magnesium 40 mg 40 mg PO DAILY 01/13/25 01/13/25 History capsule,delayed release famotidine 20 mg tablet 20 mg PO HS 01/13/25 01/13/25 History levothyroxine 25 mcg tablet 25 mcg PO DAILY 01/13/25 01/13/25 History rosuvastatin 10 mg tablet 10 mg PO DAILY 01/13/25 01/13/25 History sucralfate 1 gram tablet 1 g PO ACHS 01/13/25 01/13/25 History topiramate 50 mg tablet 50 mg PO DAILY 01/13/25 01/13/25 History Past Med/Surg History Problem List (Updated 01/13/25 @ 08:19 by Harish Funez MD) Abdominal pain Hypokalemia (Acute) Hydroureteronephrosis (Acute) Ovarian cyst (Acute) Elevated blood pressure reading (Acute) Headache (Acute) Chest pain (Acute) Abdominal pain, acute (Acute) COVID-19 (Acute) Occipital neuralgia of right side Dental abscess Dental infection (Acute) Facial cellulitis Medical History (Updated 01/13/25 @ 08:19 by Harish Funez MD) Asthma Frequent UTI Headache Surgical History (Updated 11/13/24 @ 19:[address] MD) History of cholecystectomy H/O laparoscopy H/O hernia repair Family History Father No problems noted. 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 ENT- oropharynx clear Neck- supple, no JVD. Lungs- clear to auscultation no wheezing or crackles Heart- regular rate and rhythm; no murmur, no gallop. Abdomen- normal bowel sounds, soft, mild diffuse tender , no guarding Extremities- no pretibial edema, no erythema seen Neuro- alert, oriented PERRL, no facial palsy; no dysarthria; moves extremities Results & Data Results & Data Vital Signs (Past 12 Hours) Vital Signs Temp Pulse Pulse Resp BP BP Pulse Ox 01/13/25 07:00 68 18 127/89 97 01/13/25 06:30 129/91 97 01/13/25 06:00 129/91 99 01/13/25 05:54 147/98 H 100 01/13/25 04:33 79 21 99 01/13/25 04:30 148/94 H 01/13/25 04:27 81 20 98 01/13/25 04:00 143/99 H 01/13/25 03:51 70 19 99 01/13/25 03:45 71 19 100 01/13/25 03:39 71 17 100 01/13/25 03:30 146/94 H 01/13/25 03:23 74 01/13/25 03:20 100 01/13/25 03:18 149/95 H 01/13/25 03:05 36.5 C 85 20 186/108 H 100 O2 Del Method 01/13/25 07:00 Room Air 01/13/25 06:30 Room Air 01/13/25 06:00 Room Air 01/13/25 05:54 Room Air 01/13/25 04:33 02/17/25 04:30 01/13/25 04:27 01/13/25 04:00 01/13/25 03:51 01/13/25 03:45 01/13/25 03:39 01/13/25 03:30 01/13/25 03:23 01/13/25 03:20 Room Air 01/13/25 03:18 01/13/25 03:05 Room Air Diagnostic Findings Laboratory Results WBC 11.47 K/ul (4.8-10.8) H 01/13/25 03:21 RBC 4.34 M/uL (4.20-5.40) 01/13/25 03:21 Hgb 13.1 g/dl (12.0-16.0) 01/13/25 03:21 POC Hgb 13.3 g/dl (12.0-16.0) 01/13/25 03:26 Hct 39.3 % (37.0-47.0) 01/13/25 03:21 POC Hct 39 % (37-47) 01/13/25 03:26 MCV 90.6 fL (80.0-100.0) 01/13/25 03:21 MCH 30.2 pg (25.0-34.0) 01/13/25 03:21 MCHC 33.3 g/dL (32.0-36.0) 01/13/25 03:21 RDW Std Deviation 45.1 fL (36.4-46.3) 01/13/25 03:21 RDW Coeff of Gemma 13.6 % (11.5-14.5) 01/13/25 03:21 Plt Count 334 K/uL (130-400) 01/13/25 03:21 MPV 11.2 fL (9.4-12.4) 01/13/25 03:21 Immature Gran % (Auto) 0.2 % 01/13/25 03:21 Neut % (Auto) 51.4 % 01/13/25 03:21 Lymph % (Auto) 36.1 % 01/13/25 03:21 Beadle % (Auto) 7.1 % 01/13/25 03:21 Eos % (Auto) 4.5 % 01/13/25 03:21 Baso % (Auto) 0.7 % 01/13/25 03:21 Neut # (Auto) 5.89 K/uL (1.40-6.50) 01/13/25 03:21 Lymph # (Auto) 4.14 K/uL (1.20-3.40) H 01/13/25 03:21 Beadle # (Auto) 0.82 K/uL (0.11-0.59) H 01/13/25 03:21 Eos # (Auto) 0.52 K/uL (0.00-0.50) H 01/13/25 03:21 Baso # (Auto) 0.08 K/uL (0.00-0.20) 01/13/25 03:21 Immature Gran # (Auto) 0.02 K/uL (0.01-0.20) 01/13/25 03:21 POC Sodium 142 mmol/L (135-144) 01/13/25 03:26 Sodium 139 mmol/L (136-145) 01/13/25 03:21 POC Potassium 2.9 mmol/L (3.3-5.0) L 01/13/25 03:26 Potassium 3.0 mmol/L (3.5-5.1) L 01/13/25 03:21 POC Chloride 105 mmol/L (101-112) 01/13/25 03:26 Chloride 108 mmol/L (98-107) H 01/13/25 03:21 Carbon Dioxide 26 mmol/L (21-32) 01/13/25 03:21 POC Total CO2 24 mmol/L (24-31) 01/13/25 03:26 Anion Gap 5 (3-11) 01/13/25 03:21 POC Anion Gap 17.0 mmol/L (16-25) 01/13/25 03:26 POC BUN 6 mg/dl (7-18) L 01/13/25 03:26 BUN 8 mg/dl (6-23) 01/13/25 03:21 Creatinine 0.87 mg/dl (0.6-1.2) 01/13/25 03:21 POC Creatinine 0.9 mg/dl (0.6-1.3) 01/13/25 03:26 Est Cr Clr Drug Dosing 68.3 ml/min 01/13/25 03:21 eGFR 82.64 01/13/25 03:21 BUN/Creatinine Ratio 9.2 (10-20) L 01/13/25 03:21 Glucose 65 mg/dl (70-99(Fasting)) L 01/13/25 03:21 POC Glucose 97 mg/dl (70-99) 01/13/25 04:33 POC Glucose (other) 63 mg/dl (70-99) L* 01/13/25 03:26 Calcium 9.1 mg/dl (8.6-10.3) 01/13/25 03:21 POC Ioniz Calcium Carolin 1.20 mmol/l (1.12-1.32) 01/13/25 03:26 Magnesium 2.0 mg/dl (1.7-2.4) 01/13/25 03:21 Total Bilirubin 0.3 mg/dl (0.2-1.0) 01/13/25 03:21 AST 11 U/L (13-39) L 01/13/25 03:21 ALT 8 U/L (7-52) 01/13/25 03:21 Alkaline Phosphatase 66 U/L (34-104) 01/13/25 03:21 Troponin I High Sens 3.4 pg/ml (0-14) 01/13/25 04:42 Total Protein 6.5 gm/dl (6.0-8.3) 01/13/25 03:21 Albumin 4.1 gm/dl (3.4-5.0) 01/13/25 03:21 Globulin 2.4 gm/dl (2.5-4.0) L 01/13/25 03:21 Albumin/Globulin Ratio 1.7 (0.9-2) 01/13/25 03:21 Lipase 76 U/L (11-82) 01/13/25 03:21 HCG, Qual Negative (Negative) 01/13/25 03:21 Impressions Abdomen/Pelvis CT 01/13/25 03:15 EXAM: CT abd pelvis IV con only CLINICAL HISTORY: upper abd pain TECHNIQUE: Contiguous axial images were obtained from the level of the diaphragm to the pubic symphysis with intravenous contrast. Coronal and sagittal reconstructions were likewise performed and indicated to increase the sensitivity for detecting clinically relevant pathology. If IV contrast material had not been administered, the likelihood of detecting abnormalities relevant to the patient's condition would have been substantially decreased. CT scan was performed according to ALARA (as low as reasonable achievable). COMPARISON: 13 nov 2024 FINDINGS: The visualized lung bases are clear. The liver is normal in size and attenuation. No focal liver lesions are seen. There is no intra or extrahepatic biliary ductal dilatation. Hepatic vasculature is patent. The gallbladder is removed thank you. The spleen, pancreas, and adrenal glands are unremarkable. The kidneys are normal in size and attenuation. There is mild right sided hydroureteronephrosis. No perinephric fat stranding seen. No renal calculi or renal masses are identified. The ureters are normal in caliber and no ureteral calculi are seen. The bladder is normal in contour. Pelvic viscera are unremarkable. No focal or diffuse bowel wall thickening or evidence of bowel obstruction is identified. The appendix is visualized in the right lower quadrant and appears within normal limits. Abdominal and pelvic vasculature is patent. No adenopathy or fluid collections are seen. Uterus appears enlarged in size and shows multiple heterogeneously enhancing lesion involving anterior wall, posterior wall and fundic region - largest measures about 6 x 5 cm - suggestive of uterine fibroids. Cystic lesion with septae seen in left adnexa measuring 4.5 X 3.4 cm in size. No aggressive appearing osseous lesions are identified. IMPRESSION: 1. Bulky uterus and multiple uterine fibroids.-stable. It is causing compression over right ureter and proximal hydroureteronephrosis- new finding as compared to prior study. 2. Cystic lesion with septae seen in left adnexa measuring 4.5 X 3.4 cm in size. Advised ultrasound pelvis correlation. New finding as compared to prior study. 3. No other new interval abnormality since prior study. Electronically signed by Andrew Soto 01-13-2025 05:14 AM Chest CTA 01/13/25 03:15 EXAM: CT angio chest PE protocol CLINICAL HISTORY: PE, smoker TECHNIQUE: Contiguous axial images were obtained from the neck base through the upper abdomen following intravenous administration of iodinated contrast material. Angiographic images were processed, 3D MIP images were acquired for interpretation. If IV contrast material had not been administered, the likelihood of detecting abnormalities relevant to the patient's condition would have been substantially decreased. Coronal and sagittal 3-D MIPs were likewise performed and indicated to increase the sensitivity of detectin diffuse clinically relevant pathology. CT scan was performed according to ALARA (as low as reasonable achievable). COMPARISON: None. FINDINGS: Adequate contrast bolus without evidence of pulmonary embolism. The central airways are patent. The lungs are clear. No pleural effusion. The heart, aorta, and pulmonary arteries are of normal size and configuration. There are no appreciable coronary artery and aortic atherosclerotic calcifications. No pericardial effusion is identified. The thyroid is unremarkable. No mediastinal, hilar, or axillary lymphadenopathy is noted. No suspicious lytic or sclerotic osseous lesions are identified. IMPRESSION: 1. No evidence of pulmonary embolism or pulmonary disease. Electronically signed by Andrew Soto 01-13-2025 05:[address] 01/13/25 03:20 EXAM: CT head/brain wo con CLINICAL HISTORY: FRANKEL, HTN TECHNIQUE: Multiple axial images are obtained from the skull base to the vertex without contrast. CT scan was performed according to ALARA (as low as reasonable achievable). COMPARISON: 08 JUL 2022. FINDINGS: The brain shows normal morphology, attenuation, and volume for age. No evidence of space occupying lesion, hemorrhage, edema, mass effect, midline shift, extra axial collection, or hydrocephalus is noted. Ventricles, sulci, and basal cisterns are symmetric and normal in size and configuration. The silverio-white matter differentiation is preserved. Visualized paranasal sinuses and mastoid air cells are well aerated. Orbital contents are within normal limits. Bony structures are intact. IMPRESSION: 1. No evidence of acute intracranial abnormality is demonstrated No other new interval abnormality since prior study. Electronically signed by Andrew Soto 01-13-2025 05:04 AM Pelvis Ultrasound 01/13/25 05:24 EXAM: US pelvic complete CLINICAL HISTORY: Abnormal CT exam. TECHNIQUE: Ultrasound examination of the pelvis was performed in real time and duplex using a trans-abdominal approach. The vascular flow was evaluated using color flow and with a spectral pattern of the flow waveform. COMPARISON: 01/13/2025 CT and 04/07/2023 US. FINDINGS: Uterus: Heterogeneous enlarged anteverted uterus measuring 9.3 x 9 x 7.3 cm. Multiple myometrial heterogenous fibroids were observed the largest measures 6.7 x 5.8 x 5.5 cm. Endometrial stripe thickness: 7 mm. V-shaped endometrium with slight displacement anteriorly. Ovaries: Right ovary size: 2.5 x 2.5 x 2 cm. Vascular flow was seen. Left ovary size: 4.1 x 4.1 x 3.4 cm. The vascular flow was seen Left ovarian cyst with septation measuring 3.7 x 3 x 3.3 cm. No significant increased vascularity on color Doppler application. Bladder: Urinary bladder not specifically evaluated in the provided images Additional Findings: No pelvic free fluid. IMPRESSION: 1. Enlarged uterus with multiple uterine fibroids (unchanged). 2. Redemonstration of left ovarian cyst with septation measuring 3.7 x 3 x 3.3 cm, interval involution of the cyst(As per CT exam). No significant increased vascularity. RECOMMENDATIONS: Clinical correlation with symptoms and further evaluation as indicated. Further evaluation with MRI may be advised. Electronically signed by Lisa Neumann 01-13-2025 07:48 AM ECG Additional Comments: ECG. Normal sinus rhythm rate of 79. Incomplete right bundle branch block. No significant change was found. Code Status & VTE Plan VTE Prophylaxis Plan VTE Prophylaxis will be ordered: Yes
[2025-01-13] MEDS ORDERED: HYDROmorphone INJ 0.5 MG/0.5 ML SYR IV PRN ×2 (09:49)
[2025-01-13] MEDS ORDERED: ACETAMINOPHEN 325 MG TAB PO PRN (09:49)
[2025-01-13] MEDS ORDERED: ALBUTEROL HFA 8 GM INHALER INH PRN (09:49)
[2025-01-13] MEDS ORDERED: POLYETHYLENE (MIRALAX) 17 GM PACK PO PRN (09:49)
[2025-01-13] MEDS ORDERED: ONDANSETRON INJ 2 MG/ML 2 ML VIAL IV PRN (09:49)
[2025-01-13] MEDS: GADOBUTROL 65ML VIAL IV ONE (11:01)
--- NOTE | 2025-01-13 11:28 | Magnetic Resonance Report ---
MR pelvis wo/w con CLINICAL HISTORY: bulky uterus/ovary causing compression of ureter COMPARISON STUDY: CT of the abdomen and pelvis and pelvic ultrasound January 13, 2025. CT of the ab domen and pelvis November 13, 2024. TECHNIQUE: Utilizing a 1.5 Stephie magnet and dedicated coil, multiplanar, multiecho imaging of the pel vis was performed pre and postcontrast administration. Intravenous injection of 6.5 cc of Gadavist wa s uneventful. FINDINGS: The uterus is enlarged and contains numerous enhancing T2 hypointense lesions. These are si milar in appearance to CT of November 13, 2024. The largest is a posterior fundal mural lesion which measures 6 x 5.8 x 5.3 cm. A left uterine body mural lesion measures 4.9 x 4 x 3.6 cm. Endometrial th ickness is normal. There is no free fluid. A septated left ovarian cyst measures 3.9 x 3 cm. Right ov andrey is unremarkable. No pelvic lymphadenopathy is present. No bladder abnormality is identified. No a reas of marrow edema or marrow placement within the pelvis or hips are identified. There is no dilata tion of the distal ureters. Caliber and wall thickness of visualized small and large bowel are normal . IMPRESSION: 1. Enlarged uterus which contains multiple fibroids which measure up to 6 cm, as described above. 2. 3.9 cm septated left renal cyst. This has benign imaging characteristics. Unremarkable sonographic appearance of the right ovary. 3. No free fluid within the pelvis. No pelvic lymphadenopathy. 4. No dilatation of the distal ureters. ACT 112: Negative or not required by law. Electronically signed by: Tonny Lugo M.D. 01/13/2025 11:27 AM
[2025-01-13] MEDS: LEVOTHYROXINE SODIUM 25 MCG TABLET PO SCH (11:45)
[2025-01-13] MEDS: ESCITALOPRAM OXALATE 20 MG TAB PO SCH (11:45)
[2025-01-13] MEDS: ROSUVASTATIN CALCIUM 10 MG TAB PO SCH (11:45)
[2025-01-13] MEDS: SUCRALFATE 1 GM TAB PO SCH (11:45)
[2025-01-13] MEDS: TOPIRAMATE 50 MG TAB PO SCH (11:45)
[2025-01-13] MEDS: PANTOprazole 40 MG TAB PO SCH (11:45)
[2025-01-13] MEDS: busPIRone 15 MG TAB PO SCH (11:45)
[2025-01-13] MEDS: SODIUM CHLORIDE 0.9% 1,000 ML IV SCH (11:45)
--- NOTE | 2025-01-13 13:06 | Electrocardiogram Report ---
Test Reason : Blood Pressure : */* mmHG Vent. Rate : 79 BPM Atrial Rate : 79 BPM P-R Int : 126 ms QRS Dur : 102 ms QT Int : 388 ms P-R-T Axes : 68 53 71 degrees QTcB Int : 444 ms Normal sinus rhythm Incomplete right bundle branch block Borderline ECG When compared with ECG of 08-Jul-2022 21:50, No significant change was found Confirmed by Charles Woodall ([id number]) on 01/13/2025 1:05:58 PM Referred By: REFERRED SELF Confirmed By: Charles Woodall
--- NOTE | 2025-01-13 13:32 | OB/GYN Consultation ---
Date of Consultation January 13, 2025 Assessment & Plan (1) Abdominal pain: follow up in office after discharge for surgical consultation (2) Hydroureteronephrosis: (3) Fibroids: History of Present Illness Reason for Consultation: fibroid uterus Requesting Physician: Dr. Fisher Attending Physician: Raúl Fisher MD History of Present Illness 49 F [id number] LMP 2 weeks ago with irregular abnormal uterine bleeding and epigastric abdominal pain with some radiation to left flank. Allergies Allergy/AdvReac Type Severity Reaction Status Date / Time Cephalosporins Allergy Intermediate Hives Verified 11/08/24 14:33 Penicillins Allergy Intermediate Hives Verified 11/08/24 14:33 Sulfa (Sulfonamide Allergy Intermediate Hives Verified 11/08/24 14:33 Antibiotics) Home Medications Medication Instructions Recorded Confirmed Type albuterol sulfate 90 mcg/actuation 2 puff inhalation Q4H PRN 01/13/25 01/13/25 History aerosol inhaler Shortness Of Breath Or Wheezing buspirone 15 mg tablet 15 mg PO BID 01/13/25 01/13/25 History escitalopram oxalate 20 mg tablet 20 mg PO DAILY 01/13/25 01/13/25 History esomeprazole magnesium 40 mg 40 mg PO DAILY 01/13/25 01/13/25 History capsule,delayed release famotidine 20 mg tablet 20 mg PO HS 01/13/25 01/13/25 History levothyroxine 25 mcg tablet 25 mcg PO DAILY 01/13/25 01/13/25 History rosuvastatin 10 mg tablet 10 mg PO DAILY 01/13/25 01/13/25 History sucralfate 1 gram tablet 1 g PO ACHS 01/13/25 01/13/25 History topiramate 50 mg tablet 50 mg PO DAILY 01/13/25 01/13/25 History Patient History Medical History Asthma Frequent UTI Headache Surgical History History of cholecystectomy H/O laparoscopy H/O hernia repair Family History Father No problems noted. 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 some mild tenderness in epigastric region. no guarding or rebound. all 4 quadrants pain free with deep palpation. no ascites noted. no hernias. Musculoskeletal: Extremities: extremities normal to inspection Skin: no rashes, warm and dry Neurologic: patellar DTR's 2+ bilat, sensation intact Psychiatric: A+Ox3, euthymic affect Results & Data Vital Signs (Past 12 Hours) Vital Signs Temp Pulse Pulse Resp BP BP Pulse Ox 01/13/25 13:06 90 20 01/13/25 12:48 68 20 01/13/25 12:36 75 17 01/13/25 12:21 71 15 01/13/25 12:18 71 20 01/13/25 12:12 77 17 131/81 97 01/13/25 12:03 72 18 96 01/13/25 12:00 131/81 01/13/25 11:47 83 16 152/93 H 97 01/13/25 11:45 152/93 H 01/13/25 10:09 68 20 96 01/13/25 10:03 67 17 96 01/13/25 10:00 131/89 01/13/25 09:54 71 17 96 01/13/25 09:53 71 20 127/82 99 01/13/25 09:42 70 19 95 01/13/25 09:30 81 20 94 01/13/25 09:24 73 20 93 01/13/25 09:22 67 01/13/25 09:18 66 17 97 01/13/25 09:03 75 17 94 01/13/25 09:00 127/82 01/13/25 09:00 66 18 127/82 96 01/13/25 08:51 75 18 95 01/13/25 08:48 74 18 94 01/13/25 08:30 72 19 96 01/13/25 08:21 72 17 96 01/13/25 08:18 67 18 96 01/13/25 07:15 98 01/13/25 07:00 98 01/13/25 07:00 127/89 01/13/25 07:00 68 18 127/89 97 01/13/25 06:51 99 01/13/25 06:45 98 01/13/25 06:30 129/91 97 01/13/25 06:00 129/91 99 01/13/25 05:54 147/98 H 100 01/13/25 04:33 79 21 99 01/13/25 04:30 148/94 H 01/13/25 04:27 81 20 98 01/13/25 04:00 143/99 H 01/13/25 03:51 70 19 99 01/13/25 03:45 71 19 100 01/13/25 03:39 71 17 100 01/13/25 03:30 146/94 H 01/13/25 03:23 74 01/13/25 03:20 100 01/13/25 03:18 149/95 H 01/13/25 03:05 36.5 C 85 20 186/108 H 100 O2 Del Method 01/13/25 13:06 01/13/25 12:48 01/13/25 12:36 01/13/25 12:21 01/13/25 12:18 01/13/25 12:12 Room Air 01/13/25 12:03 01/13/25 12:00 01/13/25 11:47 Room Air 01/13/25 11:45 01/13/25 10:09 01/13/25 10:03 01/13/25 10:00 01/13/25 09:54 01/13/25 09:53 Room Air 01/13/25 09:42 01/13/25 09:30 01/13/25 09:24 01/13/25 09:22 01/13/25 09:18 01/13/25 09:03 01/13/25 09:00 01/13/25 09:00 Room Air 01/13/25 08:51 01/13/25 08:48 01/13/25 08:30 01/13/25 08:21 01/13/25 08:18 01/13/25 07:15 01/13/25 07:00 01/13/25 07:00 01/13/25 07:00 Room Air 01/13/25 06:51 01/13/25 06:45 01/13/25 06:30 Room Air 01/13/25 06:00 Room Air 01/13/25 05:54 Room Air 01/13/25 04:33 01/13/25 04:30 01/13/25 04:27 01/13/25 04:00 01/13/25 03:51 01/13/25 03:45 01/13/25 03:39 01/13/25 03:30 01/13/25 03:23 01/13/25 03:20 Room Air 01/13/25 03:18 01/13/25 03:05 Room Air Laboratory Results 01/13/25 01/13/25 01/13/25 03:21 03:26 04:33 WBC 11.47 H RBC 4.34 Hgb 13.1 POC Hgb 13.3 Hct 39.3 POC Hct 39 MCV 90.6 MCH 30.2 MCHC 33.3 RDW Std Deviation 45.1 RDW Coeff of Gemma 13.6 Plt Count 334 MPV 11.2 Immature Gran % (Auto) 0.2 Neut % (Auto) 51.4 Lymph % (Auto) 36.1 Wirt % (Auto) 7.1 Eos % (Auto) 4.5 Baso % (Auto) 0.7 Neut # (Auto) 5.89 Lymph # (Auto) 4.14 H Wirt # (Auto) 0.82 H Eos # (Auto) 0.52 H Baso # (Auto) 0.08 Immature Gran # (Auto) 0.02 POC Sodium 142 Sodium 139 POC Potassium 2.9 L Potassium 3.0 L POC Chloride 105 Chloride 108 H Carbon Dioxide 26 POC Total CO2 24 Anion Gap 5 POC Anion Gap 17.0 POC BUN 6 L BUN 8 Creatinine 0.87 POC Creatinine 0.9 Est Cr Clr Drug Dosing 68.3 eGFR 82.64 BUN/Creatinine Ratio 9.2 L Glucose 65 L POC Glucose 97 POC Glucose (other) 63 L* Calcium 9.1 POC Ioniz Calcium Carolin 1.20 Magnesium 2.0 Total Bilirubin 0.3 AST 11 L ALT 8 Alkaline Phosphatase 66 Troponin I High Sens 3.3 Total Protein 6.5 Albumin 4.1 Globulin 2.4 L Albumin/Globulin Ratio 1.7 Lipase 76 HCG, Qual Negative 01/13/25 04:42 WBC RBC Hgb POC Hgb Hct POC Hct MCV MCH MCHC RDW Std Deviation RDW Coeff of Gemma Plt Count MPV Immature Gran % (Auto) Neut % (Auto) Lymph % (Auto) Wirt % (Auto) Eos % (Auto) Baso % (Auto) Neut # (Auto) Lymph # (Auto) Wirt # (Auto) Eos # (Auto) Baso # (Auto) Immature Gran # (Auto) POC Sodium Sodium POC Potassium Potassium POC Chloride Chloride Carbon Dioxide POC Total CO2 Anion Gap POC Anion Gap POC BUN BUN Creatinine POC Creatinine Est Cr Clr Drug Dosing eGFR BUN/Creatinine Ratio Glucose POC Glucose POC Glucose (other) Calcium POC Ioniz Calcium Carolin Magnesium Total Bilirubin AST ALT Alkaline Phosphatase Troponin I High Sens 3.4 Total Protein Albumin Globulin Albumin/Globulin Ratio Lipase HCG, Qual Diagnostic Findings pelvic ultrasound and MRI reveal fibroids (1) Abdominal pain Abdominal location: generalized Qualified Code(s): R10.84 - Generalized abdominal pain
--- NOTE | 2025-01-13 13:56 | Urology Consultation ---
Date of Consultation January 13, 2025 Assessment & Plan (1) Hydroureteronephrosis: 49-year-old female admitted for abdominal pain. Patient afebrile and hemodynamically stable Labs reviewedcreatinine 0.87, WBC 11.47, hemoglobin 13.1 CT imaging showed an enlarged uterus with multiple fibroids, mild right hydroureteronephrosis likely from external compression from uterus, no renal or ureteral calculi She reports intermittent abdominal pain, worse on the left side No right sided flank pain, renal function is normal No acute intervention at this time CLINICAL STAFF EDUCATOR consulted and planning outpatient follow-up to discuss surgical options Discussed outpatient urology follow-up to monitor, can consider stent placement if worsening renal function or for preoperative planning with PARKING METER COLLECTOR Continue supportive care and medical management per hospital medicine will sign off, recall as needed History of Present Illness Attending Physician: Raúl Fisher MD History of Present Illness This is a 49-year-old female who presented to the emergency department on 01/13/2025 for evaluation of abdominal pain ongoing for several weeks with acute worsening yesterday. On arrival to ED, she was afebrile, hypertensive. Labs showed 0.47, hemoglobin 13.1, potassium 3.0, creatinine 0.87. Workup included CT abdomen and pelvis with IV contrast which showed bulky uterus and multiple uterine fibroids. Mild right sided hydroureteronephrosis. No renal or ureteral calculi. Cystic lesion with septae seen in left adnexa measuring 4.5 X 3.4 cm in size. ED course: IV fluids, diphenhydramine, famotidine, pantoprazole, metoclopramide, potassium chloride. Patient admitted to hospital medicine for pain management. Urology is consulted for right hydronephrosis. Patient seen and examined in the emergency department. Family at bedside. She reports intermittent generalized abdominal discomfort, more pronounced on the left side. Pain improved since arrival. No flank pain. Denies recent UTI. No dysuria or hematuria. CLINICAL STAFF EDUCATOR consulted and outpatient follow-up is planned to discuss surgical options. Allergies Allergy/AdvReac Type Severity Reaction Status Date / Time Cephalosporins Allergy Intermediate Hives Verified 11/08/24 14:33 Penicillins Allergy Intermediate Hives Verified 11/08/24 14:33 Sulfa (Sulfonamide Allergy Intermediate Hives Verified 11/08/24 14:33 Antibiotics) Home Medications Medication Instructions Recorded Confirmed Type albuterol sulfate 90 mcg/actuation 2 puff inhalation Q4H PRN 01/13/25 01/13/25 History aerosol inhaler Shortness Of Breath Or Wheezing buspirone 15 mg tablet 15 mg PO BID 01/13/25 01/13/25 History escitalopram oxalate 20 mg tablet 20 mg PO DAILY 01/13/25 01/13/25 History esomeprazole magnesium 40 mg 40 mg PO DAILY 01/13/25 01/13/25 History capsule,delayed release famotidine 20 mg tablet 20 mg PO HS 01/13/25 01/13/25 History levothyroxine 25 mcg tablet 25 mcg PO DAILY 01/13/25 01/13/25 History rosuvastatin 10 mg tablet 10 mg PO DAILY 01/13/25 01/13/25 History sucralfate 1 gram tablet 1 g PO ACHS 01/13/25 01/13/25 History topiramate 50 mg tablet 50 mg PO DAILY 01/13/25 01/13/25 History Patient History Medical History Asthma Frequent UTI Headache Surgical History History of cholecystectomy H/O laparoscopy H/O hernia repair Family History Father No problems noted. 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 Feels Safe at Home: Yes Safety Concerns: Feels Safe At This Time Review of Systems Review of Systems: All systems reviewed & are unremarkable except as noted in HPI & below Physical Exam Constitutional: well developed and well nourished; no acute distress Respiratory: normal respiratory effort; no respiratory distress and no labored breathing Gastrointestinal (Abdomen): Inspection/Auscultation: abdomen normal to inspection Musculoskeletal: Head/Neck/Chest: normocephalic Neurologic: moves all extremities and awake Psychiatric: Orientation: alert and oriented x 3 Results & Data Vital Signs (Past 12 Hours) Vital Signs Temp Pulse Pulse Resp BP BP Pulse Ox 01/13/25 13:51 69 17 145/92 H 99 01/13/25 13:06 90 20 01/13/25 12:48 68 20 01/13/25 12:36 75 17 01/13/25 12:21 71 15 01/13/25 12:18 71 20 01/13/25 12:12 77 17 131/81 97 01/13/25 12:03 72 18 96 01/13/25 12:00 131/81 01/13/25 11:47 83 16 152/93 H 97 01/13/25 11:45 152/93 H 01/13/25 10:09 68 20 96 01/13/25 10:03 67 17 96 01/13/25 10:00 131/89 01/13/25 09:54 71 17 96 01/13/25 09:53 71 20 127/82 99 01/13/25 09:42 70 19 95 01/13/25 09:30 81 20 94 01/13/25 09:24 73 20 93 01/13/25 09:22 67 01/13/25 09:18 66 17 97 01/13/25 09:03 75 17 94 01/13/25 09:00 127/82 01/13/25 09:00 66 18 127/82 96 01/13/25 08:51 75 18 95 01/13/25 08:48 74 18 94 01/13/25 08:30 72 19 96 01/13/25 08:21 72 17 96 01/13/25 08:18 67 18 96 01/13/25 07:15 98 01/13/25 07:00 98 01/13/25 07:00 127/89 01/13/25 07:00 68 18 127/89 97 01/13/25 06:51 99 01/13/25 06:45 98 01/13/25 06:30 129/91 97 01/13/25 06:00 129/91 99 01/13/25 05:54 147/98 H 100 01/13/25 04:33 79 21 99 01/13/25 04:30 148/94 H 01/13/25 04:27 81 20 98 01/13/25 04:00 143/99 H 01/13/25 03:51 70 19 99 01/13/25 03:45 71 19 100 01/13/25 03:39 71 17 100 01/13/25 03:30 146/94 H 01/13/25 03:23 74 01/13/25 03:20 100 01/13/25 03:18 149/95 H 01/13/25 03:05 36.5 C 85 20 186/108 H 100 O2 Del Method 01/13/25 13:51 Room Air 01/13/25 13:06 01/13/25 12:48 01/13/25 12:36 01/13/25 12:21 01/13/25 12:18 01/13/25 12:12 Room Air 01/13/25 12:03 01/13/25 12:00 01/13/25 11:47 Room Air 01/13/25 11:45 01/13/25 10:09 01/13/25 10:03 01/13/25 10:00 01/13/25 09:54 01/13/25 09:53 Room Air 01/13/25 09:42 01/13/25 09:30 01/13/25 09:24 01/13/25 09:22 01/13/25 09:18 01/13/25 09:03 01/13/25 09:00 01/13/25 09:00 Room Air 01/13/25 08:51 01/13/25 08:48 01/13/25 08:30 01/13/25 08:21 01/13/25 08:18 01/13/25 07:15 01/13/25 07:00 01/13/25 07:00 01/13/25 07:00 Room Air 01/13/25 06:51 01/13/25 06:45 01/13/25 06:30 Room Air 01/13/25 06:00 Room Air 01/13/25 05:54 Room Air 01/13/25 04:33 01/13/25 04:30 01/13/25 04:27 01/13/25 04:00 01/13/25 03:51 01/13/25 03:45 01/13/25 03:39 01/13/25 03:30 01/13/25 03:23 01/13/25 03:20 Room Air 01/13/25 03:18 01/13/25 03:05 Room Air PG Care Time/CCT Total # of Minutes Spent Total Time Spent with Patient: Total time spent is greater than 50% in coordination of care (as documented) at patient's floor/unit and/or counseling patient: Coding Level of Care Code 76238 IN/OBS CONSULT LVL 3,45M Diagnoses Hydroureteronephrosis N13.30
[2025-01-13 14:15] VITALS: RESP 21; O2SAT 97
--- NOTE | 2025-01-13 15:32 | Discharge Summary ---
Discharge Summary Date of Service January 13, 2025 Principal Dx & Hospital Course #1 = Principal Diagnosis (1) Abdominal pain: 49-year-old female with past med history significant for GERD, irritable bowel syndrome, uterine fibroid, dysmenorrhea, nephrolithiasis,, migraine, tension headaches, adjustment disorder with anxious mood, fibroadenoma of left breast comes because of abdominal pain going on for several weeks but yesterday got severe. Also some headache. Has chronic cough from smoking. Currently denies any chest pain or shortness of breath. No diarrhea or constipation. Micturition okay. Afebrile. No runny nose or sore throat. Hemodynamics are okay. She went to [facility] couple of weeks ago ,x-ray was done which seems was okay. Abdominal pain Head pain -CT scan showing bulky uterus and multiple uterine fibroids. It is causing compression of the right ureter and proximal hydroureteronephrosis. Cystic lesion in left adnexa measuring 4.5X 3.4 cm size -Pelvic ultrasound shows enlarged uterus and multiple fibroids. Redemonstration of left ovarian cyst with septation measuring 3.7X 3.3 cm -CTA chest no PE or pulmonary disease -CT head no acute findings Plan: -urology consulted, recommended outpatient f/u -gynecology consulted, recommended outpatient f/u -BMP in one week GERD -On famotidine, esomeprazole and sucralfate DVT prophylaxis -SCDs for now Notes For Next Care Provider 49-year-old female with past med history significant for GERD, irritable bowel syndrome, uterine fibroid, dysmenorrhea, nephrolithiasis,, migraine, tension headaches, adjustment disorder with anxious mood, fibroadenoma of left breast comes because of abdominal pain going on for several weeks but yesterday got severe. In the ED noted to have hydronephrosis, bulky uterus, admitted to medicine. On medicine, urology consulted, recommended outpatient f/u. Gynecology was consulted, recommended outpatient f/u. Pain improved with pain meds and fluids. On 01/13/2025 patient medically stable for discharge home. Medication Changes From Visit -oxycodone, tylenol, amlodopine Admission HPI Per Admitting Provider 49-year-old female with past med history significant for GERD, irritable bowel syndrome, uterine fibroid, dysmenorrhea, nephrolithiasis,, migraine, tension headaches, adjustment disorder with anxious mood, fibroadenoma of left breast comes because of abdominal pain going on for several weeks but yesterday got severe. Also some headache. Has chronic cough from smoking. Currently denies any chest pain or shortness of breath. No diarrhea or constipation. Micturition okay. Afebrile. No runny nose or sore throat. Hemodynamics are okay. She went to [facility] couple of weeks ago ,x-ray was done which seems was okay. Past medical history. As mentioned above Past surgical history. Colonoscopy. Dental surgery. Hysteroscopy with biopsy. Ligation of oviducts. US guided breast biopsy bilateral. Social history. Smoked on average 0.8 packs of for 25 years. No alcohol use. No drug use. Family history. Maternal cousin had breast cancer. Mother had stroke. Discharge Exam Gen: A&O 3 NAD HEENT: NCAT, EOMI, not icteric. External ears normal. No rhinorrhea. Moist mucous membranes. Neck: Supple, full range of motion, no observable masses, No meningeal sign. Lungs: No Respiratory distress. CV: RRR, no edema. Abdomen: Soft, nondistended, No rebound tenderness. MSK: No joint swelling, no redness. Skin: No rashes, petechiae, lesions. Normal color per patient. Neuro: Normal Gait, Grossly intact. Psych: Appropriate for situation. Updated Medication List Medication Instructions Recorded Confirmed Type acetaminophen 500 mg capsule 1,000 mg (2 x 500 mg) PO Q8 PRN 01/13/25 Rx fever #60 caps albuterol sulfate 90 mcg/actuation 2 puff inhalation Q4H PRN 01/13/25 01/13/25 History aerosol inhaler Shortness Of Breath Or Wheezing amlodipine 10 mg tablet 10 mg PO DAILY #30 tabs 01/13/25 Rx buspirone 15 mg tablet 15 mg PO BID 01/13/25 01/13/25 History escitalopram oxalate 20 mg tablet 20 mg PO DAILY 01/13/25 01/13/25 History esomeprazole magnesium 40 mg 40 mg PO DAILY 01/13/25 01/13/25 History capsule,delayed release famotidine 20 mg tablet 20 mg PO HS 01/13/25 01/13/25 History levothyroxine 25 mcg tablet 25 mcg PO DAILY 01/13/25 01/13/25 History oxycodone 5 mg tablet 5 mg PO BID PRN pain #20 tabs 01/13/25 Rx rosuvastatin 10 mg tablet 10 mg PO DAILY 01/13/25 01/13/25 History sucralfate 1 gram tablet 1 g PO ACHS 01/13/25 01/13/25 History topiramate 50 mg tablet 50 mg PO DAILY 01/13/25 01/13/25 History Hospital Stay Data Consultations 01/13/25 05:21 ED Decision to Admit Stat 01/13/25 09:49 Consult Obstetrics Routine Consult Urology Routine Diagnostic Imagining Performed 01/13/25 03:15 CT abd pelvis IV con only Stat CT angio chest PE protocol Stat 01/13/25 03:20 CT head/brain wo con Stat 01/13/25 05:24 US pelvic complete Stat 01/13/25 08:04 MR pelvis wo/w con Stat Pending Results Patient Have Any Pending Studies at Discharge: Yes Discharge Instructions Given to Patient (Per Discharging Provider) 1. Please follow up with urology, gynecology, and PCP at discharge. 2. Take pain medication as needed, opioids sparingly for severe pain 3. Please stay very hydrated. 4. Take new medication for blood pressure, please consider stopping smoking cigarettes given it raises blood pressure. 5. Follow up BMP in one week. Total Time Total Time Spent Total Time Spent (In Minutes): I spent a total of 35 minutes in direct patient care, including [id number] time with the patient and/or family, reviewing medical records, ordering and reviewing diagnostic tests, and coordinating care with other healthcare providers. This time includes: history taking, physical examination, medical decision making, counseling, ECG interpretation, imaging interpretation, lab interpretation, orders, and education, excluding time spent in the performance of separately billed services.
[2025-01-13 16:10] VITALS: BP 139/88; PULSE 78
[2025-01-13] MEDS ORDERED: FAMOTIDINE 20 MG TAB PO SCH (21:00)
== END 2025-01-13 16:30 | disposition home or self-care (01) | DRG 760 ==
LOC: ED 03:02 → EDINP 07:05 → SUATTDRO 07:05 → INTOOBSV 07:05 → EDINP 09:49